=== PATIENT | male | born 1935 | race African-American/Black ===

== ENCOUNTER 2016-05-21 14:12 | Inpatient (IN) | payer MEDICARE, MEDICAID ==
[~2016-05-21] VITALS: Ht 175.3 cm; Wt 96.0 kg
[~2016-05-21 14:12] MED LIST: AMLO10TA2 PO; DORZ2SOL EACH EYE; FINA5TAB2 PO; GLIP10TA6 PO; LOSA50TA PO; METF500T PO; POTA1TAB4 PO; SIMV40TA PO
[2016-05-21 14:14] VITALS: BP 220/105; PULSE 70; RESP 20; TEMP 97.9; O2SAT 94
--- NOTE | 2016-05-21 16:36 | PD ---
HPI Chief Complaint: Respiratory Distress Time Seen by Provider: 16:30 Travel History International Travel<30 days: No Contact w/Intl Traveler<30days: No Traveled to known affect area: No History of Present Illness HPI Patient is an 80-year-old male presenting to emergency for evaluation of chest tightness and epigastric burning. Patient states he also feels short of breath. Patient symptoms started yesterday. He denies any nausea, vomiting, headache, fever, swelling. He reports compliance with his medications. Patient 's past medical history includes hypertension, diabetes, CHF, chronic kidney disease, GERD, hyperlipidemia, bowel obstruction. PFSH Past Medical History Cancer: No High Cholesterol: Yes Congestive Heart Failure: Yes Coronary Artery Disease: Yes Diabetes: Yes GERD: Yes Glaucoma: No Genitourinary: Yes (PROSTATE SURG) Hepatitis: No Hiatal Hernia: No Hypertension: Yes Immune Disorder: No Medical other: Yes (chronic kidney disease) Musculoskeletal: No Neurologic: Yes Psychiatric: No Reproductive: No Respiratory: No Migraines: Yes Renal Failure: Yes Thyroid Disease: No Past Surgical History Abdominal Surgery: Yes (LAP PERLA) Cardiac Surgery: No Ear Surgery: No Endocrine Surgery: No Eye Surgery: No Genitourinary Surgery: Yes (PROSTATE SURGERY ) Gynecologic Surgery: Yes Oral Surgery: Yes (TONSILLECTOMY, ADNOIDECTOMY) Pacemaker: No Thoracic Surgery: No Other Surgery: Yes ("SOME BOWEL SURG") Social History Alcohol Use: No Tobacco Use: No Substance Use: No Allergies-Medications (Allergen,Severity, Reaction): Coded Allergies: No Known Allergies (Verified , 05/21/16) Reported Meds & Prescriptions Reported Meds & Active Scripts Active Finasteride 5 Mg Tab 5 Mg PO DAILY Do not crush. Reported Dorzolamide Opth Drops (Dorzolamide HCl) 2% Soln 1 Drop EACH EYE BID Amlodipine (Amlodipine Besylate) 10 Mg Tab 10 Mg PO DAILY Metformin (Metformin HCl) 500 Mg Tab 500 Mg PO DAILY With a meal Simvastatin 40 Mg Tab 40 Mg PO HS K-Tab (Potassium Chloride) 20 Meq Tab 20 Meq PO DAILY Losartan (Losartan Potassium) 50 Mg Tab 100 Mg PO DAILY Glipizide 10 Mg Tab 10 Mg PO DAILY Take 30 minutes before a meal Review of Systems Except as stated in HPI: all other systems reviewed are Neg Cardiovascular: Positive: Chest Pain or Discomfort Respiratory: Positive: Shortness of Breath Gastrointestinal: Positive: Abdominal Pain (epigastric) Genitourinary: No: Dysuria Musculoskeletal: No: Myalgias Neurologic: No: Weakness, Dizziness, Syncope, Change in Mentation Physical Exam Narrative GENERAL: Well-developed, well-nourished, alert gentleman. Resting comfortably in no acute distress. SKIN: Warm and dry. HEAD: Atraumatic. Normocephalic. EYES: Pupils equal and round. No scleral icterus. No injection or drainage. ENT: No nasal bleeding or discharge. Mucous membranes pink and moist. NECK: Trachea midline. No JVD. CARDIOVASCULAR: Regular rate and rhythm. No murmur appreciated. RESPIRATORY: No accessory muscle use. Clear to auscultation. Breath sounds equal bilaterally. GASTROINTESTINAL: Abdomen soft, non-tender, nondistended. Hepatic and splenic margins not palpable. MUSCULOSKELETAL: No obvious deformities. No clubbing. No cyanosis. No edema. NEUROLOGICAL: Awake and alert. No obvious cranial nerve deficits. Motor grossly within normal limits. Normal speech. PSYCHIATRIC: Appropriate mood and affect; insight and judgment normal. Data Data Last Documented VS Vital Signs Date Time Temp Pulse Resp B/P Pulse Ox O2 Delivery O2 Flow Rate FiO2 05/21/16 14:14 97.9 70 20 220/105 94 Room Air Orders Complete Blood Count With Diff (05/21/16 16:20) Comprehensive Metabolic Panel (05/21/16 16:20) B-Type Natriuretic Peptide (05/21/16 16:20) Act Partial Throm Time (Ptt) (05/21/16 16:20) Prothrombin Time / Inr (Pt) (05/21/16 16:20) Magnesium (Mg) (05/21/16 16:20) Ckmb (Isoenzyme) Profile (05/21/16 16:20) Troponin I (05/21/16 16:20) Electrocardiogram (05/21/16 16:20) Chest, Pa & Lat (05/21/16 16:20) Labs Laboratory Tests Test 05/21/16 17:40 White Blood Count 7.2 TH/MM3 Red Blood Count 4.36 MIL/MM3 Hemoglobin 13.2 GM/DL Hematocrit 39.6 % Mean Corpuscular Volume 90.9 FL Mean Corpuscular Hemoglobin 30.4 PG Mean Corpuscular Hemoglobin 33.4 % Concent Red Cell Distribution Width 12.8 % Platelet Count 168 TH/MM3 Mean Platelet Volume 9.5 FL Neutrophils (%) (Auto) 69.7 % Lymphocytes (%) (Auto) 21.0 % Monocytes (%) (Auto) 6.1 % Eosinophils (%) (Auto) 2.7 % Basophils (%) (Auto) 0.5 % Neutrophils # (Auto) 5.0 TH/MM3 Lymphocytes # (Auto) 1.5 TH/MM3 Monocytes # (Auto) 0.4 TH/MM3 Eosinophils # (Auto) 0.2 TH/MM3 Basophils # (Auto) 0.0 TH/MM3 CBC Comment DIFF FINAL Differential Comment MDM Medical Decision Making Medical Screen Exam Complete: Yes Emergency Medical Condition: Yes Interpretation(s) Vital Signs Date Time Temp Pulse Resp B/P Pulse Ox O2 Delivery O2 Flow Rate FiO2 05/21/16 14:14 97.9 70 20 220/105 94 Room Air Differential Diagnosis Hypertensive urgency versus unstable angina versus congestive heart failure versus electrolyte abnormality versus pneumonia versus bronchitis versus other Narrative Course Patient is an 80-year-old male presenting to emergency for evaluation of shortness of breath and epigastric abdominal pain that started yesterday. Patient had no nausea, vomiting, diarrhea. Patient does have a history of congestive heart failure. Labs and imaging ordered and pending. Patient's vital signs reveal an elevated BP of 220/105. Patient does report compliance with his medications. Care patient to be transferred to provider in medical pod when bed available. Namrata Guerrero May 21, 2016 16:36
--- NOTE | 2016-05-21 16:44 | RADRPT ---
EXAM DATE/TIME: 05/21/2016 16:43 [facility] COMPARISON: CHEST PA & LAT, March 30, 2012, 13:27. INDICATIONS : Short of breath MEDICAL HISTORY : Hypertension. Diabetes mellitus type II. SURGICAL HISTORY : None. ENCOUNTER: Initial ACUITY: 3 days PAIN SCORE: 0/10 LOCATION: Bilateral chest FINDINGS: PA and lateral views of the chest demonstrate the lungs to be symmetrically aerated without evidence of mass, infiltrate or effusion. The cardiomediastinal contours reveal atherosclerotic changes of ao rta with compensated cardiomegaly. Mild persistent coursing the left basilar bronchovascular markings .. Osseous structures are intact. CONCLUSION: No acute disease. No significant change has occurred. Graham Gonzalez MD on May 21, 2016 at 16:42 Board Certified Radiologist. This report was verified electronically.
[2016-05-21 18:12] LABS: BASOPHIL % 0.5 % (0.0-2.0); EOSINOPHIL # 0.2 TH/MM3 (0-0.4); EOSINOPHIL % 2.7 % (0.0-4.0); HEMATOCRIT 39.6 % (39.0-51.0); HEMO FLAGS DIFF FINAL; LYMPHOCYTE # 1.5 TH/MM3 (1.0-4.8); MEAN CELL VOLUME 90.9 FL (80.0-100.0); MEAN CORPUSCULAR HEMOGLOBIN 30.4 PG (27.0-34.0); MEAN CORPUSCULAR HGB CONC 33.4 % (32.0-36.0); MONO % 6.1 % (0.0-8.0); NEUT % 69.7 % (16.0-70.0); PLATELET COUNT 168 TH/MM3 (150-450); RED BLOOD COUNT 4.36 MIL/MM3 (4.50-5.90); RED CELL DISTRIBUTION WIDTH 12.8 % (11.6-17.2); WHITE BLOOD COUNT 7.2 TH/MM3 (4.0-11.0)
[2016-05-21 18:28] LABS: ANION GAP 7 MEQ/L (5-15); AST (GOT) 32 U/L (15-37); BICARBONATE 26.1 MEQ/L (21.0-32.0); BLOOD UREA NITROGEN 10 MG/DL (7-18); CHLORIDE 107 MEQ/L (98-107); GLOMERULAR FILTRATION RATE 55 ML/MIN (>89); MAGNESIUM 1.8 MG/DL (1.5-2.5); POTASSIUM 4.3 MEQ/L (3.5-5.1); SODIUM (NA) 140 MEQ/L (136-145)
[2016-05-21 18:29] LABS: APTT (PATIENT) 27.1 SEC (24.3-30.1); PROTHROMBIN TIME - PATIENT 10.7 SEC (9.8-11.6)
[2016-05-21] MEDS ORDERED: cloNIDine HCL 0.1 MG TAB PO ONE (18:30)
[2016-05-21 18:33] LABS: ALKALINE PHOSPHATASE 83 U/L (45-117); ALT (GPT) 26 U/L (12-78); CREATINE KINASE 118 U/L (39-308); TOTAL BILIRUBIN ADULT 0.7 MG/DL (0.2-1.0)
[2016-05-21 18:37] VITALS: BP 225/98; PULSE 54; RESP 20; TEMP 98.6; O2SAT 94
[2016-05-21 18:46] LABS: CKMB 2.5 NG/ML (0.5-3.6)
[2016-05-21] MEDS ORDERED: ASPI325T PO (18:52)
[2016-05-21 19:00] VITALS: BP 185/86; PULSE 55; RESP 22; O2SAT 95
[2016-05-21] MEDS ORDERED: ASPIRIN 325 MG TAB PO ONE (19:15)
--- NOTE | 2016-05-21 19:55 | PD ---
Physical Exam Date Seen by Provider: May 21, 2016 Time Seen by Provider: 19:51 Narrative 80-year-old male that presents to the ED for evaluation of chest pain and shortness of breath. Please refer to Namrata Nelson's note who evaluated the patient before I did. Patient was signed out to me pending lab report and imaging results and disposition. Data Data Last Documented VS Vital Signs Date Time Temp Pulse Resp B/P Pulse Ox O2 Delivery O2 Flow Rate FiO2 05/21/16 18:37 98.6 54 20 225/98 94 Room Air Orders Complete Blood Count With Diff (05/21/16 16:20) Comprehensive Metabolic Panel (05/21/16 16:20) B-Type Natriuretic Peptide (05/21/16 16:20) Act Partial Throm Time (Ptt) (05/21/16 16:20) Prothrombin Time / Inr (Pt) (05/21/16 16:20) Magnesium (Mg) (05/21/16 16:20) Ckmb (Isoenzyme) Profile (05/21/16 16:20) Troponin I (05/21/16 16:20) Electrocardiogram (05/21/16 16:20) Chest, Pa & Lat (05/21/16 16:20) Lipase (05/21/16 18:15) Clonidine (Catapres) (05/21/16 18:30) CKMB (05/21/16 17:40) CKMB% (05/21/16 17:40) Aspirin (Aspirin) (05/21/16 19:15) Admit Order (Ed Use Only) (05/21/16 19:33) Consult Cardiology (05/21/16 ) Labs Laboratory Tests Test 05/21/16 17:40 White Blood Count 7.2 TH/MM3 Red Blood Count 4.36 MIL/MM3 Hemoglobin 13.2 GM/DL Hematocrit 39.6 % Mean Corpuscular Volume 90.9 FL Mean Corpuscular Hemoglobin 30.4 PG Mean Corpuscular Hemoglobin 33.4 % Concent Red Cell Distribution Width 12.8 % Platelet Count 168 TH/MM3 Mean Platelet Volume 9.5 FL Neutrophils (%) (Auto) 69.7 % Lymphocytes (%) (Auto) 21.0 % Monocytes (%) (Auto) 6.1 % Eosinophils (%) (Auto) 2.7 % Basophils (%) (Auto) 0.5 % Neutrophils # (Auto) 5.0 TH/MM3 Lymphocytes # (Auto) 1.5 TH/MM3 Monocytes # (Auto) 0.4 TH/MM3 Eosinophils # (Auto) 0.2 TH/MM3 Basophils # (Auto) 0.0 TH/MM3 CBC Comment DIFF FINAL Differential Comment Prothrombin Time 10.7 SEC Prothromb Time International 1.0 RATIO Ratio Activated Partial 27.1 SEC Thromboplast Time Sodium Level 140 MEQ/L Potassium Level 4.3 MEQ/L Chloride Level 107 MEQ/L Carbon Dioxide Level 26.1 MEQ/L Anion Gap 7 MEQ/L Blood Urea Nitrogen 10 MG/DL Creatinine 1.48 MG/DL Estimat Glomerular Filtration 55 ML/MIN Rate Random Glucose 111 MG/DL Calcium Level 8.9 MG/DL Magnesium Level 1.8 MG/DL Total Bilirubin 0.7 MG/DL Aspartate Amino Transf 32 U/L (AST/SGOT) Alanine Aminotransferase 26 U/L (ALT/SGPT) Alkaline Phosphatase 83 U/L Total Creatine Kinase 118 U/L Creatine Kinase MB 2.5 NG/ML Troponin I 0.09 NG/ML B-Type Natriuretic Peptide 387 PG/ML Total Protein 8.1 GM/DL Albumin 3.9 GM/DL [facility] Medical Record Reviewed: Yes Supervised Visit with TESSY: No Interpretation(s) EKG shows sinus rhythm with no sign of acute ischemia read by me and attending. CBC & BMP Diagram 05/21/16 17:40 Last Impressions Chest X-Ray 05/21/16 1620 Signed Impressions: Service Date/Time: Saturday, May 21, 2016 16:43 - CONCLUSION: No acute disease. No significant change has occurred. Graham Gonzalez MD Troponin and CK-MB negative. Differential Diagnosis Coronary disease versus ACS versus an STEMI versus CHF versus gastritis Narrative Course 80-year-old male that presents to the ED for evaluation of chest discomfort. Patient was properly examined and was found to have signs and symptoms consistent with appears to be chest pain possible cardiac. Patient does have risk factors including hypertension, high cholesterol, diabetes and CHF. Labs and imaging were ordered before by Namrata Nelson. Please refer to her note. Basically labs and imaging chem positive for positive troponin and elevated BNP. Otherwise unremarkable. No sign of new EKG changes. Case was discussed in my attending Dr. Giron who was made aware of all findings and recommends admission to medical team. Patient has no human resources professional. I spoke with Dr. Mcdaniel who agrees to admission. Diagnosis Primary Impression: Chest pain in adult Additional Impressions: CHF (congestive heart failure) Qualified Code: I50.33 - Acute on chronic diastolic congestive heart failure Elevated troponin Admitting Information Admitting Physician Requests: Observation Oli Tiwari May 21, 2016 19:55
[2016-05-21] MEDS ORDERED: ONDANSETRON HCL 4 MG/2 ML VIAL IVP PRN (22:00)
[2016-05-21] MEDS ORDERED: ACETAMINOPHEN 325 MG TAB PO PRN (22:00)
[2016-05-21] MEDS ORDERED: NALOXONE HCL 0.4 MG/ML AMP IV PRN (22:00)
[2016-05-21] MEDS ORDERED: NITROGLYCERIN 0.4 MG SL 25 TABS/BTL SL PRN (22:00)
[2016-05-21] MEDS ORDERED: NITROGLYCERIN 2% OINT 1 GM PACKET TOP SCH (22:00)
[2016-05-21] MEDS ORDERED: SODIUM CHLORIDE 0.9% FLUSH 5 ML FLUSH FLUSH PRN (22:00)
[2016-05-21] MEDS: HEPARIN SODIUM - SQ 10,000 UNITS/ML VIAL SQ SCH (22:28)
[2016-05-21] MEDS ORDERED: DEXTROSE 50% IN WATER 50 ML VIAL(D50) IV PUSH PRN (22:45)
[2016-05-21] MEDS ORDERED: GLUCAGON 1 MG/ML VIAL OTHER PRN (22:45)
[2016-05-21 23:00] VITALS: BP 159/84; PULSE 58; RESP 18; O2SAT 97
[2016-05-21] MEDS: DEXT 5%-NACL 0.45% 1000 ML INJ 1,000 ML IV SCH (23:11)
[2016-05-22] VITALS (11 sets, daily range): BP systolic 142–185; BP diastolic 64–89; PULSE 46–84; RESP 16–21; TEMP 97.6–98.4; O2SAT 91–100
[2016-05-22 05:08] LABS: HEMATOCRIT 32.2 % (39.0-51.0); MEAN CELL VOLUME 89.9 FL (80.0-100.0); MEAN CORPUSCULAR HEMOGLOBIN 30.6 PG (27.0-34.0); MEAN CORPUSCULAR HGB CONC 34.1 % (32.0-36.0); PLATELET COUNT 140 TH/MM3 (150-450); RED BLOOD COUNT 3.58 MIL/MM3 (4.50-5.90); RED CELL DISTRIBUTION WIDTH 12.6 % (11.6-17.2); REVIEW FLAG FINAL; WHITE BLOOD COUNT 6.2 TH/MM3 (4.0-11.0)
[2016-05-22 05:43] LABS: BICARBONATE 25.2 MEQ/L (21.0-32.0); HDL CHOLESTEROL 55.2 MG/DL (40.0-60.0); POTASSIUM 3.6 MEQ/L (3.5-5.1)
[2016-05-22] MEDS: INSULIN ASPART SUPPLEMENTAL SCALE SQ SCH ×4 (06:22→20:26)
[2016-05-22] MEDS: LOSARTAN 50 MG TAB PO SCH (08:31)
[2016-05-22] MEDS: FINASTERIDE 5 MG TAB PO SCH (08:31)
[2016-05-22] MEDS: glipiZIDE 10 MG TAB PO SCH (08:32)
[2016-05-22] MEDS ORDERED: ASPIRIN 325 MG TAB PO SCH ×2 (09:00)
[2016-05-22] MEDS: SODIUM CHLORIDE 0.9% FLUSH 5 ML FLUSH FLUSH SCH ×2 (09:00→20:25)
[2016-05-22] MEDS: DORZOLAMIDE 2% OPTH SOLN 200 DROP/10 ML BTLO EACH EYE SCH ×2 (09:00→20:25)
[2016-05-22] MEDS ORDERED: hydrALAZINE HCL 25 MG TAB PO SCH (09:00)
[2016-05-22] MEDS ORDERED: hydrALAZINE HCL 20 MG/ML VIAL IV PUSH PRN (09:15)
--- NOTE | 2016-05-22 10:30 | RADRPT ---
EXAM DATE/TIME: 05/22/2016 09:58 [facility] COMPARISON: No previous studies available for comparison. INDICATIONS : Increased amylase and lipase. MEDICAL HISTORY : Hypertension. Gastroesophageal reflux disease. Congestive heart failure. Diabetic. CAD. SURGICAL HISTORY : Cholecystectomy. Tonsillectomy. Prostate. ENCOUNTER: Initial ACUITY: 1 day PAIN SCORE: 0/10 LOCATION: Right upper quadrant MEASUREMENTS: LIVER: 17.1 cm length COMMON DUCT: 7 mm RIGHT KIDNEY: 8.5 x 5.1 x 4.5 cm FINDINGS: LIVER: Normal echotexture without focal lesion or ductal dilatation. COMMON DUCT: No intraluminal mass or stone visualized. GALLBLADDER: Contains no stones, demonstrates no wall thickening or pericholecystic fluid. PANCREAS: The visualized portions are within normal limits. Right kidney is small and echogenic measuring 8.5 cm. CONCLUSION: 1. Pancreas appears unremarkable sonographically. 2. Echogenic kidney consistent with medical renal disease. Brent Drake MD on May 22, 2016 at 10:25 Board Certified Radiologist. This report was verified electronically.
[2016-05-22] MEDS: DEXT 5%-NACL 0.45% 1000 ML INJ 1,000 ML IV SCH ×3 (10:40→14:10)
[2016-05-22] MEDS: HEPARIN SODIUM - SQ 10,000 UNITS/ML VIAL SQ SCH ×2 (11:43→20:30)
--- NOTE | 2016-05-22 11:50 | MH ---
cc: BASIA MARTEL DATE OF ADMISSION: 05/21/2016 DATE OF 1935 CHIEF COMPLAINT chest pain HISTORY OF PRESENT ILLNESS This is a pleasant 80-year-old black male who has been in his usual state of health up until yesterday morning the patient was working out in his yard and noted some midsternal chest pain he describes the pain is a pressure sensation, non radiating. He does note some shortness of breath at the time that the pressure was there, the pain did wax and wane through the a.m. and he decided to come to the emergency room for evaluation. The patient denies any nausea, vomiting, headache, fever. He is fairly active, lives alone and is able to work in his yard. He denies any previous heart attacks, but he does have a history of congestive heart failure. The patient does note a mild cough which seems to be more seasonal he states, but currently is having no shortness of breath and no further symptoms of chest pain after being treated in the emergency room. PAST MEDICAL HISTORY: 1. Diabetes with oral hypoglycemics 2. Hyperlipidemia 3. Gastroesophageal reflux disease 4. Hypertension 5. Chronic kidney disease. PAST SURGICAL HISTORY: 1. Prostate surgery. 2. Laparoscopic cholecystectomy 3. Tonsillectomy. 4. Adenoidectomy 5. Bowel surgery. ALLERGIES NONE KNOWN. MEDICATIONS: 1. Dorzolamide ophthalmic drops 2. Amlodipine 3. Metformin 4. Simvastatin 5. K-tab 6. Losartan 7. Glipizide. SOCIAL HISTORY The patient denies any alcohol use. No illicit drugs. He has previous tobacco use when he was a young male, but has not smoked a long time. The patient is lives alone in his own home. He does have family support outside of the home. FAMILY HISTORY Hypertension. REVIEW OF SYSTEMS A 12-point review was done positives noted with chest pain, mild cough as a day and mild shortness of breath, other systems negative. PHYSICAL EXAMINATION VITAL SIGNS: Temperature is 90, 890 pulse and between 47, 58, respiratory rate 16, blood pressure was 59/84 and 185/89. O2 sat 92. Currently on room air and or O2 at 2 liters p.r.n. IN GENERAL: Tall, well-nourished, well-developed black male looks to be his stated age resting in the bed in no acute distress. SKIN: The skin is pink is pink mucous membranes warm and dry. HEAD, EYES, EARS, NOSE, AND THROAT: Atraumatic, normocephalic. Pupils equal, round, reactive to light and accommodation. Tongue is dry, no extudate. NECK: Neck is supple. CARDIOVASCULAR SYSTEM: Slow rate and rhythm. Soft systolic murmur grade 2/6 at left sternal border. No rubs or gallops. No pedal edema, his pulses are intact. RESPIRATORY: Lungs are essentially clear anteriorly and posteriorly with no wheezes, rales or rhonchi. ABDOMEN: The abdomen is round, soft, nontender, nondistended. Active bowel sounds in all four quads. MUSCULOSKELETAL: He moves his extremities with purpose as stated no edema. He has equal hand cross enterprise integrator and overcome resistance. NEUROLOGICALLY: He is awake and alert, a fair to good historian. Speech is normal. PSYCHIATRIC: Appropriate mood and affect. Insight and judgment is normal. GENITOURINARY: Observable orange, clear urine. DIAGNOSTIC DATA: White blood count 6.2, RBC 3.58, hemoglobin 11, initially 13.2 on admission, 132.2, platelet count 140, initially 168 on admission sodium 140, potassium 3.6, chloride 107 carbon dioxide 25.2, amnion gap 8, BUN 114, creatinine 1.53, random glucose 149, calcium 8.4, troponin low positive at 0.09 and 0.12 and 0.10, lipase 404. PT/INR 1. IMAGING STUDIES Chest x-ray is no acute disease and no acute change. ASSESSMENT 1. Chest pain, rule out myocardial infarction. 2. Rule out, coronary artery disease. 3. Chronic kidney disease. 4. Diabetes type 2, non-insulin dependent. 5. Gastroesophageal reflux disease. 6. Hypertension. 7. Cough, mild. PLAN: Plan is to admit for observation. The patient will have vital signs q. Four, and or as warranted, we will reconcile his medications. Consult cardiology for expert opinion, currently the patient has a heart healthy diet, but we will keep him n.p.o. this morning pending a possible stress test. The patient has deep venous thrombosis prophylaxis with aspirin and heparin. I appreciate cardiology input and we will follow this patient. Dictated by JUANCARLOS Ferris MD Yessy Burger /8:23 AM /3:31 PM
--- NOTE | 2016-05-22 12:16 | MB ---
cc: FARSHAD JEFFREY MD DATE OF CONSULTATION: 05/22/2016 REASON FOR CONSULTATION: Chest pain elevated troponins. HISTORY OF PRESENT ILLNESS Mr. Castillo is a 80-year-old man who does have a history of hypertension and hyperlipidemia. He denies any other cardiac problems and specifically denies any prior coronary artery disease or atrial fibrillation. He reports that he had several hours of chest discomfort yesterday. He denies any precipitating or relieving factors. He reports that he has pain free currently. The patient notes that he has been compliant with his medications and he believes his systolic pressure at home is in the 130's. OUTPATIENT MEDICATIONS Include 1. Finasteride 5 mg a day 2. Losartan 50 mg a day. 3. Metformin 500 mg a day 4. Dorzolamide 5. Amlodipine 10 mg a day. 6. Simvastatin 40 mg a day. 7. Aspirin 325 mg a day. 8. Potassium 3 mEq a day. ALLERGIES NO KNOWN DRUG ALLERGIES. PAST MEDICAL HISTORY: 1. Significant for hypertension 2. Diabetes. 3. He has also noted to have a history of elevated troponin which does appear to be chronic. 4. Renal insufficiency. REVIEW OF SYSTEMS Except as mentioned in the HPI all 12 systems are negative. PHYSICAL EXAMINATION VITAL SIGNS: Blood pressure on arrival was 220/105. Currently it is 185/89 with a heart rate of 49. The respiratory rate of 15. IN GENERAL: He is a well appearing man who is in no apparent distress. NECK: His neck is free from jugular venous distention. LUNGS: The lungs are bilaterally clear to auscultation. CARDIOVASCULAR SYSTEM: Cardiovascular examination he has a normal S1 and S2, I did not appreciate any murmurs, rubs or gallops. ABDOMEN: The abdomen is soft. EXTREMITIES: The extremities are free from edema. LABORATORY VALVES: Significant for hemoglobin of 11, creatinine of 1.53 and serial troponins 0.09/0.1/0.1 and a B-type natriuretic peptide of 387. His lipase is also elevated at 404. EKG shows normal sinus rhythm with nonspecific ST-T wave changes. IMPRESSION 1. Atypical chest pain. The patient certainty has multiple cardiovascular risk factors. He presented with the very high blood pressure and despite taking his outpatient medications. He has not had a nuclear stress test in many years. At this point I would like to pursue further evaluation with nuclear stress testing. His blood pressure will have to be controlled, prior. Additionally, the patient has had Caffeine and thus at this point would have to wait for Lexiscan. 2. Hypertension - this is currently poorly controlled. I am going to add hydralazine. 3. Renal insufficiency - this does appear chronic. 4. Anemia. Is being managed by the primary team. Farshad Jeffrey M.D. Farrah /8:34 AM /11:48 AM
[2016-05-22] MEDS: hydrALAZINE HCL 25 MG TAB PO SCH ×2 (16:24→20:25)
--- NOTE | 2016-05-22 17:06 | EKG ---
Date Performed: 05/21/2016 Time Performed: 17:21:19 PTAGE: 80 years EKG: SINUS BRADYCARDIA WITH FIRST DEGREE AV BLOCK ST DEVIATION AND MODERATE T-WAVE ABNORMALITY, CONSIDER LATERAL ISCHEMIA Since previous tracing, no significant change noted ABNORMAL ECG PREVIOUS TRACING : 11/21/2012 11.15 DOCTOR: Reese Bush Interpretating Date/Time 05/22/2016 17:04:41
--- NOTE | 2016-05-22 17:06 | EKG ---
Date Performed: 05/21/2016 Time Performed: 22:34:12 PTAGE: 80 years EKG: SINUS BRADYCARDIA WITH FIRST DEGREE AV BLOCK LEFT VENTRICULAR HYPERTROPHY AND ST-T CHANGE S dain previous tracing, no significant change noted ABNORMAL ECG PREVIOUS TRACING : 05/21/2016 17.21 DOCTOR: Reese Bush Interpretating Date/Time 05/22/2016 17:04:58
[2016-05-22] MEDS: PRAVASTATIN SOD 80 MG TAB PO SCH (20:25)
[2016-05-23] VITALS (11 sets, daily range): BP systolic 133–186; BP diastolic 63–81; PULSE 57–89; RESP 18–20; TEMP 98.1–98.8; O2SAT 95–98
[2016-05-23] MEDS: hydrALAZINE HCL 25 MG TAB PO SCH ×4 (02:28→20:41)
[2016-05-23 05:26] LABS: AUTOMATED NEUTROPHIL # 5.2 TH/MM3 (1.8-7.7); BASOPHIL % 0.5 % (0.0-2.0); EOSINOPHIL # 0.1 TH/MM3 (0-0.4); EOSINOPHIL % 1.7 % (0.0-4.0); HEMATOCRIT 35.1 % (39.0-51.0); HEMO FLAGS DIFF FINAL; LYMPH % 18.8 % (9.0-44.0); LYMPHOCYTE # 1.4 TH/MM3 (1.0-4.8); MEAN CELL VOLUME 90.5 FL (80.0-100.0); MEAN CORPUSCULAR HEMOGLOBIN 30.7 PG (27.0-34.0); MEAN CORPUSCULAR HGB CONC 33.9 % (32.0-36.0); PLATELET COUNT 153 TH/MM3 (150-450); RED BLOOD COUNT 3.88 MIL/MM3 (4.50-5.90); RED CELL DISTRIBUTION WIDTH 12.8 % (11.6-17.2); WHITE BLOOD COUNT 7.3 TH/MM3 (4.0-11.0)
[2016-05-23 05:57] LABS: BICARBONATE 25.4 MEQ/L (21.0-32.0); POTASSIUM 3.5 MEQ/L (3.5-5.1)
[2016-05-23] MEDS: INSULIN ASPART SUPPLEMENTAL SCALE SQ SCH ×4 (06:00→20:50)
--- NOTE | 2016-05-23 07:29 | PD.CARD.PN ---
Subjective Subjective Remarks pt reports dizzy spell Objective Medications Current Medications Medications (Trade) Dose Ordered Sig/Regina Route Start Time Stop Time Status Last Admin (Aspirin) 325 mg DAILY PO 05/23/16 09:00 (Nitrostat Sl) 0.4 mg Q5M PRN SL 05/21/16 22:00 (NS Flush) 2 ml UNSCH PRN FLUSH 05/21/16 22:00 (NS Flush) 2 ml BID FLUSH 05/22/16 09:00 05/22/16 20:25 (Tylenol) 650 mg Q4H PRN PO 05/21/16 22:00 (Zofran Inj) 4 mg Q6H PRN IVP 05/21/16 22:00 (Heparin Inj) 5,000 units Q12H SQ 05/21/16 22:00 05/22/16 20:30 (Narcan Inj) 0.4 mg UNSCH PRN IV 05/21/16 22:00 (Norvasc) 10 mg DAILY PO 05/22/16 09:00 05/22/16 08:31 (Trusopt 2% Opth Soln) 1 drop BID EACH EYE 05/22/16 09:00 05/22/16 20:25 (Proscar) 5 mg DAILY PO 05/22/16 09:00 05/22/16 08:31 (Glucotrol) 10 mg DAILY PO 05/22/16 09:00 05/22/16 08:32 (Cozaar) 100 mg DAILY PO 05/22/16 09:00 05/22/16 08:31 Pravastatin Sodium 80 mg 80 mg HS PO 05/22/16 21:00 05/22/16 20:25 (D5W-1/2 NS 1000 ml Inj) 1,000 ml @ 84 mls/hr [id number] IV 05/21/16 22:45 05/22/16 14:10 (D50w (Vial) Inj) 25 ml UNSCH PRN IV PUSH 05/21/16 22:45 (Glucagon Inj) 1 mg UNSCH PRN OTHER 05/21/16 22:45 (Apresoline) 25 mg Q6H PO 05/22/16 15:00 05/23/16 02:28 (Apresoline Inj) 10 mg Q6H PRN IV PUSH 05/22/16 09:15 Vital Signs / I&O Vital Signs Date Time Temp Pulse Resp B/P Pulse Ox O2 Delivery O2 Flow Rate FiO2 05/23/16 05:36 95 05/23/16 04:33 98.8 67 20 185/72 95 05/23/16 00:00 98.4 89 18 186/81 98 05/22/16 23:00 59 05/22/16 20:22 98.0 84 18 142/64 99 05/22/16 20:00 62 05/22/16 16:00 97.6 60 18 182/84 95 05/22/16 12:52 46 05/22/16 11:15 97.7 47 18 154/73 92 05/22/16 08:44 46 157/73 92 05/22/16 07:59 92 21 05/22/16 07:48 98.0 49 16 185/89 91 I/O 05/22/16 05/22/16 05/22/16 05/23/16 05/23/16 05/23/16 07:00 15:00 23:00 07:00 15:00 23:00 Intake Total 360 ml Balance 360 ml Intake Oral 360 ml # Voids 1 Physical Exam GENERAL: Well developed, well nourished. No acute distress. HEENT: Jugular venous pressure is normal. CHEST: Lungs clear to auscultation bilaterally. Unlabored respiratory effort. CARDIAC: Regular rate and rhythm without S3, S4, or murmur. ABDOMEN: Soft, nontender, no hepatosplenomegaly. Bowel sounds present. EXTREMITIES: No clubbing, cyanosis, or edema. Laboratory Laboratory Tests Test 05/23/16 05:00 White Blood Count 7.3 TH/MM3 Red Blood Count 3.88 MIL/MM3 Hemoglobin 11.9 GM/DL Hematocrit 35.1 % Mean Corpuscular Volume 90.5 FL Mean Corpuscular Hemoglobin 30.7 PG Mean Corpuscular Hemoglobin 33.9 % Concent Red Cell Distribution Width 12.8 % Platelet Count 153 TH/MM3 Mean Platelet Volume 9.2 FL Neutrophils (%) (Auto) 71.0 % Lymphocytes (%) (Auto) 18.8 % Monocytes (%) (Auto) 8.0 % Eosinophils (%) (Auto) 1.7 % Basophils (%) (Auto) 0.5 % Neutrophils # (Auto) 5.2 TH/MM3 Lymphocytes # (Auto) 1.4 TH/MM3 Monocytes # (Auto) 0.6 TH/MM3 Eosinophils # (Auto) 0.1 TH/MM3 Basophils # (Auto) 0.0 TH/MM3 CBC Comment DIFF FINAL Differential Comment Sodium Level 139 MEQ/L Potassium Level 3.5 MEQ/L Chloride Level 107 MEQ/L Carbon Dioxide Level 25.4 MEQ/L Anion Gap 7 MEQ/L Blood Urea Nitrogen 12 MG/DL Creatinine 1.48 MG/DL Estimat Glomerular Filtration 55 ML/MIN Rate Random Glucose 93 MG/DL Calcium Level 8.5 MG/DL Troponin I 0.07 NG/ML Lipase 479 U/L Assessment and Plan Assessment and Plan 1. Atypical chest pain- no further episodes -wade nuc today -ok for d/c if no ischemia 2. Hypertension - am meds 3. Renal insufficiency - this does appear chronic. 4. Anemia. Is being managed by the primary team. Addendum- nuc stress with anterior ischemia=> risk /bene for cath discussed and he is agreeable despite standard risk and elevated risk from CKD Niki Jesus MD May 23, 2016 07:29
[2016-05-23] MEDS: LOSARTAN 50 MG TAB PO SCH (07:45)
[2016-05-23] MEDS: glipiZIDE 10 MG TAB PO SCH (07:45)
[2016-05-23] MEDS: DORZOLAMIDE 2% OPTH SOLN 200 DROP/10 ML BTLO EACH EYE SCH ×2 (07:46→21:00)
[2016-05-23] MEDS: ASPIRIN 325 MG TAB PO SCH (07:46)
[2016-05-23] MEDS: FINASTERIDE 5 MG TAB PO SCH (07:46)
[2016-05-23] MEDS: SODIUM CHLORIDE 0.9% FLUSH 5 ML FLUSH FLUSH SCH ×2 (07:46→20:41)
--- NOTE | 2016-05-23 08:10 | HHI.PR ---
Subjective Subjective Remarks going for STT today no CP mildly dizzy when he woke up this morning, now resolved no sob tele-SR, no ectopy no acute changes overnight Review of Systems Constitutional Constitutional Remarks 12 point ROS completed, negative except as noted above Vitals/Results Intake & Output 05/22/16 05/22/16 05/23/16 15:00 23:00 07:00 Intake Total 360 ml Balance 360 ml Intake Oral 360 ml # Voids 1 Vital Signs Vital Signs Date Time Temp Pulse Resp B/P Pulse Ox O2 Delivery O2 Flow Rate FiO2 05/23/16 05:36 95 05/23/16 04:33 98.8 67 20 185/72 95 05/23/16 00:00 98.4 89 18 186/81 98 05/22/16 23:00 59 05/22/16 20:22 98.0 84 18 142/64 99 05/22/16 20:00 62 05/22/16 16:00 97.6 60 18 182/84 95 05/22/16 12:52 46 05/22/16 11:15 97.7 47 18 154/73 92 05/22/16 08:44 46 157/73 92 CBC/BMP: 05/23/16 0500 05/23/16 0500 Lab Results Laboratory Tests Test 05/23/16 05:00 White Blood Count 7.3 TH/MM3 Red Blood Count 3.88 MIL/MM3 Hemoglobin 11.9 GM/DL Hematocrit 35.1 % Mean Corpuscular Volume 90.5 FL Mean Corpuscular Hemoglobin 30.7 PG Mean Corpuscular Hemoglobin 33.9 % Concent Red Cell Distribution Width 12.8 % Platelet Count 153 TH/MM3 Mean Platelet Volume 9.2 FL Neutrophils (%) (Auto) 71.0 % Lymphocytes (%) (Auto) 18.8 % Monocytes (%) (Auto) 8.0 % Eosinophils (%) (Auto) 1.7 % Basophils (%) (Auto) 0.5 % Neutrophils # (Auto) 5.2 TH/MM3 Lymphocytes # (Auto) 1.4 TH/MM3 Monocytes # (Auto) 0.6 TH/MM3 Eosinophils # (Auto) 0.1 TH/MM3 Basophils # (Auto) 0.0 TH/MM3 CBC Comment DIFF FINAL Differential Comment Sodium Level 139 MEQ/L Potassium Level 3.5 MEQ/L Chloride Level 107 MEQ/L Carbon Dioxide Level 25.4 MEQ/L Anion Gap 7 MEQ/L Blood Urea Nitrogen 12 MG/DL Creatinine 1.48 MG/DL Estimat Glomerular Filtration 55 ML/MIN Rate Random Glucose 93 MG/DL Calcium Level 8.5 MG/DL Troponin I 0.07 NG/ML Lipase 479 U/L Physical Exam General General Appearance: Well Developed, Well Nourished, No Acute Distress, Comfortable Eyes Eye Exam: Pupils Equal, Pupils Reactive Ears & Nose Ears & Nose Exam: Nasal Mucosa [place] Throat Throat Exam: Oral Mucosa [place] & Moist Neck Neck Exam: Neck Supple, Trachea Midline Pulmonary Resp Exam: Clear Bilaterally, No Distress Cardiology CV Exam: Regular, Good Perfusion Gastrointestinal/Abdomen GI Exam: Soft, Non-Tender, Bowel Sounds Present, Non-Distended Musculoskeletal MS Exam: Joints Intact Integumentary Skin Exam: Warm, Dry Extremeties Extremities Exam: No Edema, Pedal Pulses Palpable Neurologic Neuro Exam: Alert, Awake, Oriented, Speech Clear, Moving All Extremities, No Focal Deficits Psychiatric Psych Exam: Appropriate Responses VTE Prophylaxis VTE Prophylaxis Meds: Heparin Assessment/Plan Assessment/Plan ASSESSMENT 1. Chest pain, rule out myocardial infarction, mildly elevated trop 2. Rule out, coronary artery disease. 3. Chronic kidney disease. 4. Diabetes type 2, non-insulin dependent. 5. Gastroesophageal reflux disease. 6. Hypertension, uncontrolled 7. Cough, mild. 8. Elevated lipase Plan Appreciate card input for STT today, if negative. Poss dc BP remains elevated, continue with scheduled and PRN meds elevated trop ? poss. due to elevated BP continue ASA/statin no BB, HR 50s elevated lipase, asymptomatic pancreas US okay continue IVF Continue accuchecks with AC/HS diabetic diet Renal fx stable continue IVF Heparin for DVT prophylaxis will f/u after STT, poss. dc D/W RN D/W Dr. Sosa D/W pt This patient was seen by myself and Dr. Sosa, this note is written on her behalf. Gaby Knight May 23, 2016 08:09
[2016-05-23] MEDS: HEPARIN SODIUM - SQ 10,000 UNITS/ML VIAL SQ SCH (10:00)
[2016-05-23] MEDS ORDERED: REGADENOSON INJ 0.4 MG/5 ML SYR ONE (10:18)
--- NOTE | 2016-05-23 11:50 | RADRPT ---
EXAM DATE/TIME: 05/23/2016 09:46 [facility] COMPARISON: CHEST PA & LAT, May 21, 2016, 16:43. INDICATIONS : Chest discomfort for 1 day. Bradycardia. Angina. Coronary artery disease. DOSE: 25.9 mCi Tc99m Myoview at stress. 8.5 mCi Tc99m Myoview at rest. 0.4 mg Lexiscan STRESS SYMPTOMS: None. EJECTION FRACTION: 42% MEDICAL HISTORY : Congestive hearrt failure. Hypertension. Hypercholesterolemia. SURGICAL HISTORY : Prostatectomy. Tonsillectomy. ENCOUNTER: Initial ACUITY: 1 day PAIN SCALE: 1/10 LOCATION: Midsternal chest TECHNIQUE: The patient underwent pharmacologic stress with infusion of prescribed dose. Continuous ECG tracing was monitored during stress. Gated SPECT imaging was performed after stress and conventional SPECT i maging was performed at rest. The examination was performed on a SPECT/CT scanner, both attenuation and non-corrected datasets were reviewed. FINDINGS: DISTRIBUTION: The maximum perfused segment at stress is in the septal wall. PERFUSION STUDY: The pattern of perfusion at stress reveals diminished perfusion in the anterior wall with redistribut ion at rest and consistent with ischemia. GATED STUDY: There is intact wall motion and thickening without hypokinetic or dyskinetic segments. CONCLUSION: Anterior wall perfusion defect at stress with redistribution at rest indicating ischemia. Mild left ventricular cardiomegaly with normal m yocardial contraction. Ejection fraction 42% RISK CATEGORY: Intermediate (1-3% Annual Mortality Rate) Graham Gonzalez MD on May 23, 2016 at 11:46 Board Certified Radiologist. This report was verified electronically.
[2016-05-23] MEDS ORDERED: diphenhydrAMINE HCL 50 MG/ML VIAL IV SCH (16:45)
[2016-05-23] MEDS: SODIUM CHLOR 0.9% 1000 ML INJ 1,000 ML IV SCH (16:45)
[2016-05-23] MEDS ORDERED: diphenhydrAMINE HCL 50 MG/ML VIAL ONE (17:10)
[2016-05-23] MEDS ORDERED: HEPARIN-NS/PF INJ 500 ML ONE (17:10)
[2016-05-23] MEDS ORDERED: IOHEXOL 350 MG/ML 50 ML BTL (for Cath Lab) OTHER ONE (17:10)
[2016-05-23] MEDS ORDERED: NITROGLYCERIN 400 MCG/SPRAY 4.9 GM BOTTLE SL ONE (17:24)
[2016-05-23] MEDS ORDERED: SODIUM CHLOR 0.9% 250 ML INJ 250 ML IV PRN (18:15)
[2016-05-23] MEDS ORDERED: SODIUM CHLORIDE 0.9% FLUSH 5 ML FLUSH IVF PRN (18:15)
[2016-05-23] MEDS ORDERED: METOCLOPRAMIDE HCL 10 MG/2 ML VIAL IV PRN (18:15)
[2016-05-23] MEDS ORDERED: ONDANSETRON HCL 4 MG/2 ML VIAL IV PRN (18:15)
[2016-05-23] MEDS ORDERED: MISC INFORMATION XX ONE (18:15)
[2016-05-23] MEDS ORDERED: ATROPINE SULFATE 1 MG/ML VIAL IV PRN (18:15)
[2016-05-23] MEDS ORDERED: SODIUM CHLOR 0.9% 250 ML INJ 250 ML IV ONE (18:30)
[2016-05-23] MEDS: PRAVASTATIN SOD 80 MG TAB PO SCH (20:41)
[2016-05-23] MEDS: SODIUM CHLORIDE 0.9% FLUSH 5 ML FLUSH IVF SCH (20:41)
[2016-05-23] MEDS: DEXT 5%-NACL 0.45% 1000 ML INJ 1,000 ML IV SCH (22:25)
--- NOTE | 2016-05-23 22:36 | MA ---
cc: FARSHAD JEFFREY MD DATE 05/23/2016 INDICATION Abnormal nuclear stress test. PROCEDURE Left heart catheterization, selective coronary angiography. DETAILS OF PROCEDURE The patient gave informed consent. He was prehydrated prior the procedure. He was prepped in usual sterile fashion. A subcutaneous injection of lidocaine was made in the right inguinal area. Access was achieved in the right femoral artery and a 4-Turkish sheath was inserted. A JL-5 and 3DRC were utilized to engage left and right coronary arteries. Angiograms were obtained in multiple views and projections. The patient remained stable throughout. FINDINGS Ventricular pressure was 136/8 mmHg. Aortic pressure 131/61 mmHg. Left ventriculogram was not performed given his renal insufficiency. The EF was 42% by nuclear stress test. CORONARY ANATOMY Left main - this vessel is moderate to heavily calcified in the distal portion with a 50% stenosis. It does give rise to LAD and circumflex. LAD - this vessel has 50-70% ostial stenosis. The vessel is somewhat tortuous in this area. It is followed by a mid 50% lesion. The distal vessel wraps around the apex and is actually quite large and appears to supply a good portion of the inferior wall. The first diagonal is a 1.5 mm vessel and has a 75% stenosis. The second diagonal is 1.5-2.0 mm and has a long proximal 80% stenosis followed by a mid 70% stenosis. Circumflex - this vessel is subtotally occluded in the proximal portion. RCA - this vessel is also subtotally occluded proximally. IMPRESSIONS 1. Mild LV impairment by nuclear stress test. 2. Essentially occluded RCA and circumflex. 3. Moderate to severe disease of the proximal LAD that was significant by nuclear stress test. There is additional severe disease in the first and second diagonal. 4. Cardiothoracic surgery evaluation for coronary artery bypass graft. Farshad Jeffrey M.D. OSIRIS/LA /5:58 PM /10:18 PM
[2016-05-24] VITALS (15 sets, daily range): BP systolic 146–179; BP diastolic 60–88; PULSE 62–83; RESP 18; TEMP 98.1–99.8; O2SAT 94–96
[2016-05-24] MEDS: hydrALAZINE HCL 25 MG TAB PO SCH ×4 (02:01→20:28)
[2016-05-24 04:52] LABS: BICARBONATE 24.4 MEQ/L (21.0-32.0); POTASSIUM 3.4 MEQ/L (3.5-5.1)
[2016-05-24] MEDS: INSULIN ASPART SUPPLEMENTAL SCALE SQ SCH ×4 (06:18→20:28)
--- NOTE | 2016-05-24 07:39 | PD.CARD.PN ---
Subjective Subjective Remarks Pt without complaints Objective Medications Current Medications Medications (Trade) Dose Ordered Sig/Regina Route Start Time Stop Time Status Last Admin (Aspirin) 325 mg DAILY PO 05/23/16 09:00 05/23/16 07:46 (Nitrostat Sl) 0.4 mg Q5M PRN SL 05/21/16 22:00 (Tylenol) 650 mg Q4H PRN PO 05/21/16 22:00 (Zofran Inj) 4 mg Q6H PRN IVP 05/21/16 22:00 (Narcan Inj) 0.4 mg UNSCH PRN IV 05/21/16 22:00 (Norvasc) 10 mg DAILY PO 05/22/16 09:00 05/23/16 07:46 (Trusopt 2% Opth Soln) 1 drop BID EACH EYE 05/22/16 09:00 05/23/16 07:46 (Proscar) 5 mg DAILY PO 05/22/16 09:00 05/23/16 07:46 (Glucotrol) 10 mg DAILY PO 05/22/16 09:00 05/23/16 07:45 (Cozaar) 100 mg DAILY PO 05/22/16 09:00 05/23/16 07:45 Pravastatin Sodium 80 mg 80 mg HS PO 05/22/16 21:00 05/23/16 20:41 (D5W-1 NS 1000 ml Inj) 1,000 ml @ 84 mls/hr [id number] IV 05/21/16 22:45 05/22/16 14:10 (D50w (Vial) Inj) 25 ml UNSCH PRN IV PUSH 05/21/16 22:45 (Glucagon Inj) 1 mg UNSCH PRN OTHER 05/21/16 22:45 Hydralazine HCl 25 mg 25 mg Q6H PO 05/22/16 15:00 05/24/16 02:01 (NS 1000 ml Inj) 1,000 ml @ 30 mls/hr Q24H IV 05/23/16 16:45 05/28/16 16:44 (NS Flush) 2 ml BID IVF 05/23/16 21:00 05/23/16 20:41 (NS Flush) 2 ml UNSCH PRN IVF 05/23/16 18:15 Atropine Sulfate 0.5 mg 0.5 mg UNSCH PRN IV 05/23/16 18:15 (NS 250 ml Inj) 250 ml @ 500 mls/hr ONCE PRN IV 05/23/16 18:15 05/24/16 18:14 (Reglan Inj) 10 mg Q4H PRN IV 05/23/16 18:15 (Zofran Inj) 4 mg Q4H PRN IV 05/23/16 18:15 Vital Signs / I&O Vital Signs Date Time Temp Pulse Resp B/P Pulse Ox O2 Delivery O2 Flow Rate FiO2 05/24/16 04:00 64 05/24/16 04:00 98.3 65 18 146/60 96 05/24/16 03:00 79 05/24/16 02:00 83 05/24/16 01:00 64 05/24/16 00:00 98.1 63 18 178/88 96 05/24/16 00:00 62 05/23/16 23:00 62 05/23/16 22:00 64 05/23/16 21:20 95 21 05/23/16 21:00 69 05/23/16 20:00 98.1 76 18 165/71 96 05/23/16 20:00 80 05/23/16 11:59 98.2 65 20 133/63 95 05/23/16 11:12 58 05/23/16 09:06 57 151/70 I/O 05/23/16 05/23/16 05/23/16 05/24/16 05/24/16 05/24/16 07:00 15:00 23:00 07:00 15:00 23:00 Intake Total 1082 ml Output Total 950 ml Balance 132 ml Intake Oral 660 ml IV Total 422 ml Output Urine Total 950 ml # Voids 1 2 # Bowel Movements 0 Physical Exam GENERAL: Well developed, well nourished. No acute distress. HEENT: Jugular venous pressure is normal. CHEST: Lungs clear to auscultation bilaterally. Unlabored respiratory effort. CARDIAC: Regular rate and rhythm without S3, S4, or murmur. ABDOMEN: Soft, nontender, no hepatosplenomegaly. Bowel sounds present. EXTREMITIES: No clubbing, cyanosis, or edema. Laboratory Laboratory Tests Test 05/24/16 04:13 Sodium Level 142 MEQ/L Potassium Level 3.4 MEQ/L Chloride Level 110 MEQ/L Carbon Dioxide Level 24.4 MEQ/L Anion Gap 8 MEQ/L Blood Urea Nitrogen 14 MG/DL Creatinine 1.54 MG/DL Estimat Glomerular Filtration 53 ML/MIN Rate Random Glucose 149 MG/DL Calcium Level 8.5 MG/DL Imaging Last 72 hours Impressions Myocardial Perfusion Scan Nuc Med 05/23/16 0000 Signed Impressions: Service Date/Time: Monday, May 23, 2016 09:46 - CONCLUSION: Anterior wall perfusion defect at stress with redistribution at rest indicating ischemia. Mild left ventricular cardiomegaly with normal myocardial contraction. Ejection fraction 42%% RISK CATEGORY: Intermediate (1-3%% Annual Mortality Rate) Graham Gonzalez MD Pancreas Ultrasound 05/22/16 0000 Signed Impressions: Service Date/Time: Sunday, May 22, 2016 09:58 - CONCLUSION: 1. Pancreas appears unremarkable sonographically. 2. Echogenic kidney consistent with medical renal disease. Brent Drake MD Chest X-Ray 05/21/16 1620 Signed Impressions: Service Date/Time: Saturday, May 21, 2016 16:43 - CONCLUSION: No acute disease. No significant change has occurred. Graham Gonzalez MD Assessment and Plan Assessment and Plan 1. CAD- multivessel disease, awaiting CV surgery consult evaluation for CABG 2. Hypertension - fair 3. Renal insufficiency - stable 4. Anemia. Is being managed by the primary team. Niki Jesus MD May 24, 2016 07:39
[2016-05-24] MEDS: glipiZIDE 10 MG TAB PO SCH (08:54)
[2016-05-24] MEDS: LOSARTAN 50 MG TAB PO SCH (08:54)
[2016-05-24] MEDS: FINASTERIDE 5 MG TAB PO SCH (08:54)
[2016-05-24] MEDS: ASPIRIN 325 MG TAB PO SCH (08:55)
[2016-05-24] MEDS: DORZOLAMIDE 2% OPTH SOLN 200 DROP/10 ML BTLO EACH EYE SCH ×2 (09:00→20:28)
[2016-05-24] MEDS: SODIUM CHLORIDE 0.9% FLUSH 5 ML FLUSH IVF SCH (09:00)
[2016-05-24] MEDS: DEXT 5%-NACL 0.45% 1000 ML INJ 1,000 ML IV SCH (10:20)
[2016-05-24] MEDS: CARVEDILOL 3.125 MG TAB PO SCH ×2 (10:26→20:28)
--- NOTE | 2016-05-24 10:34 | HHI.PR ---
Subjective Interval History awake alert and oriented laying in bed no chest pain no sob s/p cardiac cath yesterday, after abnormal stress test had breakfast this am BP elevated Vitals/Results Intake & Output 05/23/16 05/23/16 05/24/16 15:00 23:00 07:00 Intake Total 1082 ml Output Total 950 ml Balance 132 ml Intake Oral 660 ml IV Total 422 ml Output Urine Total 950 ml # Voids 1 2 # Bowel Movements 0 Vital Signs Vital Signs Date Time Temp Pulse Resp B/P Pulse Ox O2 Delivery O2 Flow Rate FiO2 05/24/16 07:30 99.8 81 18 172/63 95 05/24/16 04:00 64 05/24/16 04:00 98.3 65 18 146/60 96 05/24/16 03:00 79 05/24/16 02:00 83 05/24/16 01:00 64 05/24/16 00:00 98.1 63 18 178/88 96 05/24/16 00:00 62 05/23/16 23:00 62 05/23/16 22:00 64 05/23/16 21:20 95 21 05/23/16 21:00 69 05/23/16 20:00 98.1 76 18 165/71 96 05/23/16 20:00 80 05/23/16 11:59 98.2 65 20 133/63 95 05/23/16 11:12 58 CBC/BMP: 05/23/16 0500 05/24/16 0413 Lab Results Laboratory Tests Test 05/24/16 04:13 Sodium Level 142 MEQ/L Potassium Level 3.4 MEQ/L Chloride Level 110 MEQ/L Carbon Dioxide Level 24.4 MEQ/L Anion Gap 8 MEQ/L Blood Urea Nitrogen 14 MG/DL Creatinine 1.54 MG/DL Estimat Glomerular Filtration 53 ML/MIN Rate Random Glucose 149 MG/DL Calcium Level 8.5 MG/DL Physical Exam General General Appearance: Well Developed, Well Nourished, No Acute Distress, Comfortable Eyes Eye Exam: Pupils Equal, Pupils Reactive Ears & Nose Ears & Nose Exam: Nasal Mucosa [place] Throat Throat Exam: Oral Mucosa [place] & Moist Neck Neck Exam: Neck Supple, Trachea Midline Pulmonary Resp Exam: Clear Bilaterally, No Distress Cardiology CV Exam: Regular, Good Perfusion Gastrointestinal/Abdomen GI Exam: Soft, Non-Tender, Bowel Sounds Present, Non-Distended Musculoskeletal MS Exam: Joints Intact Integumentary Skin Exam: Warm, Dry Extremeties Extremities Exam: No Edema, Pedal Pulses Palpable Neurologic Neuro Exam: Alert, Awake, Oriented, Speech Clear, Moving All Extremities, No Focal Deficits Psychiatric Psych Exam: Appropriate Responses VTE Prophylaxis VTE Prophylaxis Meds: Heparin Assessment/Plan Assessment/Plan ASSESSMENT 1. Chest pain, rule out myocardial infarction, mildly elevated trop 2. Rule out, coronary artery disease. 3. Chronic kidney disease. 4. Diabetes type 2, non-insulin dependent. 5. Gastroesophageal reflux disease. 6. Hypertension, uncontrolled 7. Cough, mild. 8. Elevated lipase Plan Appreciate card input Abnormal STT s/p cardiac cath with occluded RCA/ circumflex and severe disease in prox LAD CTS consulted for CABG eval BP remains elevated, continue with scheduled and PRN meds low dose BB added heart rate appears stable continue ASA/statin elevated lipase, asymptomatic pancreas US okay continue IVF Continue accuchecks with AC/HS diabetic diet Renal fx stable continue IVF Heparin for DVT prophylaxis D/W pt Faustina Sosa MD May 24, 2016 10:34
[2016-05-24] MEDS ORDERED: METOPROLOL TARTRATE 25 MG TAB PO SCH (10:45)
[2016-05-24] MEDS ORDERED: CHLORHEXIDINE GLUCONATE 4% SOLN 120 ML BTL TOPICAL SCH (10:45)
[2016-05-24] MEDS ORDERED: PAPAVERINE INJ 60 MG, NITROGLYCERIN INJ 100 MCG, DILTIAZEM INJ 100 MG in SODIUM CHLORID... IRRIGATION SCH (10:45)
[2016-05-24] MEDS ORDERED: SODIUM CHLORIDE 0.9% FLUSH 5 ML FLUSH IV FLUSH PRN (10:45)
[2016-05-24] MEDS ORDERED: ceFAZolin 2 GM PREMIX 50 ML IV SCH (10:45)
[2016-05-24] MEDS ORDERED: CEFAZOLIN INJ 500 MG in SODIUM CHLORIDE 0.9% IRR BTL 500 ML IRRIGATION SCH (10:45)
[2016-05-24] MEDS ORDERED: INSULIN REGULAR (IV INFUSION) 100 UNITS in SODIUM CHLORIDE 0.9% INJ 99 ML IV SCH (10:45)
--- NOTE | 2016-05-24 10:59 | PD.CAR.PN ---
CVT Progress Note Subjective/Hospital Course: sts data discussed with pt RISK SCORES About the STS Risk Calculator Procedure: CAB Only Risk of Mortality: 2.511% Morbidity or Mortality: 23.769% Long Length of Stay: 10.107% Short Length of Stay: 25.527% Permanent Stroke: 2.566% Prolonged Ventilation: 14.188% DSW Infection: 0.614% Renal Failure: 12.22% Reoperation: 7.619% Objective: Vital Signs Date Time Temp Pulse Resp B/P Pulse Ox O2 Delivery O2 Flow Rate FiO2 05/24/16 07:30 99.8 81 18 172/63 95 05/24/16 04:00 64 05/24/16 04:00 98.3 65 18 146/60 96 05/24/16 03:00 79 05/24/16 02:00 83 05/24/16 01:00 64 05/24/16 00:00 98.1 63 18 178/88 96 05/24/16 00:00 62 05/23/16 23:00 62 05/23/16 22:00 64 05/23/16 21:20 95 21 05/23/16 21:00 69 05/23/16 20:00 98.1 76 18 165/71 96 05/23/16 20:00 80 05/23/16 11:59 98.2 65 20 133/63 95 05/23/16 11:12 58 Labs: Laboratory Tests Test 05/24/16 04:13 Sodium Level 142 MEQ/L (136-145) Potassium Level 3.4 MEQ/L (3.5-5.1) Chloride Level 110 MEQ/L (98-107) Carbon Dioxide Level 24.4 MEQ/L (21.0-32.0) Anion Gap 8 MEQ/L (5-15) Blood Urea Nitrogen 14 MG/DL (7-18) Creatinine 1.54 MG/DL (0.60-1.30) Estimat Glomerular Filtration 53 ML/MIN (>89) Rate Random Glucose 149 MG/DL (74-106) Calcium Level 8.5 MG/DL (8.5-10.1) Result Diagram: 05/23/16 0500 05/24/16 0413 Fay Erickson May 24, 2016 10:58
--- NOTE | 2016-05-24 11:44 | MB ---
cc: STEFANIE GRIDER MD DATE OF CONSULTATION 05/24/2016 DATE OF 1935 REASON FOR CONSULTATION This is an 80-year-old male patient of Dr. Paulo Vazquez and Dr. Niki Jesus presented to the emergency room with chest discomfort. Currently he is pain-free. The pain started while he was working out in the yard. He also has some associated shortness of breath and decided to come in for evaluation. Denied having nausea or vomiting. No headache. No recent fevers, chills, no nausea, vomiting. No history of prior heart catheterization, coronary artery disease. States he does have a history of some heart failure. He presented with a blood pressure 220/105. He was started on some hydralazine. He is on Cozaar and hydralazine. His blood pressure is 146/60. His troponins were 0.12. He underwent heart catheterization by Dr. Niki Jesus found to have 50% left main stenosis. The LAD had a 50-70% ostial stenosis. The first diagonal had a 75% stenosis. The second diagonal had 80%. The circ was subtotally occluded and the RCA was subtotally occluded proximally. We were consulted to evaluate for coronary artery bypass grafting. PAST MEDICAL HISTORY The patient's past medical history is significant for: 1. Hypertension 2. Hyperlipidemia 3. Chronic kidney disease 4. Diabetes mellitus 5. Benign prostatic hypertrophy 6. CHF 7. Gastroesophageal reflux disease PAST SURGICAL HISTORY Include: 1. Prostate surgery 2. Laparoscopic cholecystectomy 3. Tonsillectomy 4. Bowel surgery ALLERGIES No known allergies MEDICATIONS Home meds include: 1. Finasteride 5 p.o. daily 2. Losartan 50 daily 3. Metformin 500 daily 4. Dorzolamide eye drops 5. Amlodipine 10 daily 6. Simvastatin 40 daily 7. Aspirin 325 daily 8. He takes 3 mEq of potassium daily. FAMILY HISTORY Mother is still alive at age 104. She is blind and lives in a fdc. Father in his 40s from an accident. SOCIAL HISTORY The patient , has three children. No illicit drugs. Smoked approximately for 20 years, quit in 1969. REVIEW OF SYSTEMS GENERAL: No night sweats, fever, heat and cold tolerance. SKIN: No psoriasis, itching or hives. HEENT: No blurred vision or hearing loss. RESPIRATORY: Positive for recent shortness of breath. CARDIOVASCULAR: Positive for recent chest pain. No paroxysmal nocturnal dyspnea. No orthopnea. GASTROINTESTINAL: No diarrhea or vomiting. GENITOURINARY: No burning frequency or urgency. FIELD HEALTH OFFICER: No history of TIA, CVA, seizure disorder. ENDOCRINOLOGY: No history of hypothyroidism. Positive for diabetes. PHYSICAL EXAM On exam, blood pressure 146/60, heart rate 64, O2 sat 96 on room air. Patient is awake and alert in no acute distress. HEAD: Normocephalic, atraumatic. EYES, EARS, NOSE AND THROAT: Pupils equal and reactive. Oral mucosa pink and moist. NECK: Supple. No JVD. HEART: S1, S2 regular rate and rhythm. No rubs, murmurs, gallops. LUNGS: Clear to auscultation. No wheezes, rales or rhonchi. ABDOMEN: Soft, nontender. No masses or organomegaly. RADIOLOGICAL EXAMS Chest x-ray showed no acute disease. He had a myocardial perfusion scan which showed some anterior wall perfusion defect at stress with redistribution at rest indicating ischemia with EF of 42%. LABORATORY DATA Lab work shows hemoglobin 11, hematocrit of 35, white cell count 7.3, platelet count 153. Sodium 142, potassium 3.4, BUN of 14 with a creatinine of 1.54, AST 32, ALT 26, lipase 474. He did undergo gallbladder ultrasound which was unremarkable. Did, however, show some medical renal disease. EKG shows normal sinus rhythm with nonspecific specific T-wave changes. IMPRESSION This is an 80-year-old male with multiple risk factors including age, hypertension, hyperlipidemia, diabetes with positive stress test and coronary catheterization to reveal three-vessel disease. Procedures, alternatives and risks have been discussed with the patient, also STS data will be discussed with the patient. The patient is agreeable to proceed. We will plan for a coronary artery bypass grafting, endoscopic vein harvesting in the a.m. further planning as per Dr. Stefanie Grider. Dictated by JUANCARLOS Rivera Stefanie MENENDEZ/PEGGY /10:53 AM /11:[address] [facility]OSPITALRodolfo
--- NOTE | 2016-05-24 13:00 | RADRPT ---
EXAM DATE/TIME: 05/24/2016 11:41 [facility] COMPARISON: No previous studies available for comparison. INDICATIONS : Pre Op cardiac surgery. MEDICAL HISTORY : Hypercholesterolemia. Gastroesophageal reflux disease. Congestive heart failure. Glaucoma. CAD. Hyper tension. Chronic kidney disease. Diabetes. SURGICAL HISTORY : Tonsillectomy. Bowel surgery. Prostate surgery. ENCOUNTER: Initial ACUITY: 1 day PAIN SCORE: 0/10 LOCATION: Bilateral legs. TECHNIQUE: Venous ultrasound of the left and right leg was performed from the inguinal ligament to the proximal calf. Real-time, color Doppler and spectral tracing, compression and augmentation techniques were us ed. FINDINGS: RIGHT LEG: There is incompletely occlusive debris within portions of the mid to distal right superficial femoral vein which may reflect recanalization of prior DVT. LEFT LEG: There is normal compressibility of the deep venous system from the inguinal region to the proximal ca lf. No echogenic clot is seen in the lumen of the common femoral, femoral, popliteal, and posterior tibial veins. There is a normal response of the venous system to proximal and distal augmentation an d respiration. CONCLUSION: Findings consistent with partially recanalized right superficial femoral vein DVT. No evidence of DVT on the left Maxi Gates MD on May 24, 2016 at 12:55 Board Certified Radiologist. This report was verified electronically.
--- NOTE | 2016-05-24 13:13 | RADRPT ---
EXAM DATE/TIME: 05/24/2016 11:13 [facility] COMPARISON: No previous studies available for comparison. INDICATIONS : Pre Op cardiac surgery. MEDICAL HISTORY : Hypercholesterolemia. Gastroesophageal reflux disease. Congestive heart failure. Glaucoma. CAD. Hyper tension. Chronic kidney disease. Diabetes. SURGICAL HISTORY : Tonsillectomy. Bowel surgery. Prostate surgery. ENCOUNTER: Initial ACUITY: 1 day PAIN SCORE: 0/10 LOCATION: Bilateral neck PEAK SYSTOLIC VELOCITIES (cm/sec): ICA/CCA RATIO: Right: 1.3 Left: 1.0 ICA: Right: 124 Left: 114 CCA: Right: 96 Left: 116 ECA: Right: 241 Left: 203 VERTEBRAL: Right: 58 antegrade Left: 49 antegrade Elevated flow velocities and ICA/CCA ratios have been found to correlate with increased degrees of vessel stenosis, calculated as percentage of diameter relative to a normal segment of distal ICA/CCA FINDINGS: RIGHT CAROTID: Moderate atheromatous irregularity at the carotid bifurcation. No evidence of flow-limiting stenosis LEFT CAROTID: Mild eccentric plaquing. VERTEBRAL ARTERIES: Antegrade flow is seen in both vertebral arteries. MISCELLANEOUS: Several right lobe thyroid nodules. CONCLUSION: No evidence of flow-limiting carotid stenosis. Thyroid nodules. Recommend thyroid sonography on an elective basis for further evaluation Maxi Gates MD on May 24, 2016 at 12:59 Board Certified Radiologist. This report was verified electronically.
--- NOTE | 2016-05-24 13:53 | RADRPT ---
EXAM DATE/TIME: 05/24/2016 11:55 [facility] COMPARISON: No previous studies available for comparison. INDICATIONS : Pre Op cardiac surgery. MEDICAL HISTORY : Hypercholesterolemia. Gastroesophageal reflux disease. Congestive heart failure. Glaucoma. CAD. Hyper tension. Chronic kidney disease. Diabetes. SURGICAL HISTORY : Tonsillectomy. Bowel surgery. Prostate surgery. ENCOUNTER: Initial ACUITY: 1 day PAIN SCORE: 0/10 LOCATION: Bilateral legs. GREATER SAPHENOUS VEIN THIGH: PROXIMAL: Right 2 mm Left 4 mm MID: Right 2 mm Left 2 mm DISTAL: Right 2 mm Left 2 mm CALF: PROXIMAL: Right 2 mm Left 1 mm MID: Right 2 mm Left 1 mm DISTAL: Right 2 mm Left 2 mm FINDINGS: The venous system of the lower extremities are patent by color Doppler imaging. Measurements of the leg veins (in mm) are listed above. CONCLUSION: Bilateral lower extremity venous mapping as detailed above. Trevin Hernandez Jr., MD on May 24, 2016 at 13:50 Board Certified Radiologist. This report was verified electronically.
[2016-05-24] MEDS: SODIUM CHLOR 0.9% 1000 ML INJ 1,000 ML IV SCH (16:45)
[2016-05-24 17:48] LABS: HEMOGLOBIN A1a 0.8 %; HEMOGLOBIN A1b 1.4 %; HEMOGLOBIN Ao 86.3 %; HEMOGLOBIN LA1C 1.9 %; HEMOGLOBIN P3 3.5 %
[2016-05-24 18:02] LABS: BACTERIA, URINE RARE /hpf; BLOOD, URINE NEG (NEG); COMMENT (UR) CULT NOT INDICATED; CULTURE IF INDICATED CULT NOT INDICATED; GLUCOSE,URINE NEG (NEG); KETONE, URINE NEG (NEG); MUCUS URINE FEW /lpf (OCC); NITRITE,URINE NEG (NEG); SQUAMOUS EPITHELIAL CELL URINE <1 /hpf (0-5); URINE COLOR LIGHT-YELLOW (YELLW/STRAW)
[2016-05-24] MEDS: PRAVASTATIN SOD 80 MG TAB PO SCH (20:28)
[2016-05-24] MEDS ORDERED: SODIUM CHLORIDE 0.9% FLUSH 5 ML FLUSH IV FLUSH SCH (21:00)
[2016-05-25] VITALS (19 sets, daily range): BP systolic 108–172; BP diastolic 54–79; PULSE 50–77; RESP 10–20; TEMP 97.3–98.3; O2SAT 89–98
[2016-05-25] MEDS: hydrALAZINE HCL 25 MG TAB PO SCH ×2 (04:19→21:00)
[2016-05-25] MEDS ORDERED: INSULIN HUMAN REGULAR 1,000 UNITS/10 ML VIAL SQ PRN (04:45)
[2016-05-25 04:52] LABS: AUTOMATED NEUTROPHIL # 5.9 TH/MM3 (1.8-7.7); BASOPHIL % 0.3 % (0.0-2.0); EOSINOPHIL # 0.2 TH/MM3 (0-0.4); EOSINOPHIL % 2.4 % (0.0-4.0); HEMATOCRIT 35.7 % (39.0-51.0); HEMO FLAGS DIFF FINAL; LYMPHOCYTE # 1.5 TH/MM3 (1.0-4.8); MEAN CELL VOLUME 90.4 FL (80.0-100.0); MEAN CORPUSCULAR HEMOGLOBIN 30.3 PG (27.0-34.0); MEAN CORPUSCULAR HGB CONC 33.5 % (32.0-36.0); MONO % 7.7 % (0.0-8.0); NEUT % 71.6 % (16.0-70.0); PLATELET COUNT 169 TH/MM3 (150-450); RED BLOOD COUNT 3.95 MIL/MM3 (4.50-5.90); WHITE BLOOD COUNT 8.2 TH/MM3 (4.0-11.0)
[2016-05-25] MEDS ORDERED: PROTAMINE SULFATE 250 MG/25 ML VIAL IV ONE ×2 (05:00→10:04)
[2016-05-25] MEDS ORDERED: ceFAZolin INJ 1,000 MG VIAL IV ONE ×2 (05:00→11:20)
[2016-05-25] MEDS ORDERED: EPINEPHrine HCL (1:10,000) 1 MG/10 ML SYRINGE IV ONE (05:00)
[2016-05-25] MEDS ORDERED: ACETAMINOPHEN 1000 MG/100 ML VIAL IV ONE (05:00)
[2016-05-25] MEDS ORDERED: HEPARIN SODIUM - SQ 10,000 UNITS/ML VIAL SQ ONE (05:00)
[2016-05-25] MEDS ORDERED: VECURONIUM BROMIDE 10 MG VIAL IV ONE (05:00)
[2016-05-25] MEDS ORDERED: PHENYLEPHRINE HCL 10 MG/ML VIAL IV ONE (05:00)
[2016-05-25] MEDS ORDERED: NITROGLYCERIN-DEXTROSE INJ 250 ML IV ONE (05:00)
[2016-05-25] MEDS ORDERED: MAGNESIUM SULFATE 1000 MG/2 ML VIAL (PED) IV ONE (05:00)
[2016-05-25] MEDS ORDERED: LIDOCAINE HCL 1% 30 ML VIAL OTHER ONE (05:00)
[2016-05-25] MEDS ORDERED: DEXMEDETOMIDINE INJ 50 ML IV ONE (05:00)
[2016-05-25] MEDS ORDERED: ceFAZolin 2 GM PREMIX 50 ML IV ONE (05:00)
[2016-05-25 05:13] LABS: BICARBONATE 22.3 MEQ/L (21.0-32.0); POTASSIUM 3.4 MEQ/L (3.5-5.1)
[2016-05-25] MEDS: CARVEDILOL 3.125 MG TAB PO SCH ×2 (05:33→21:00)
[2016-05-25] MEDS ORDERED: VANCOMYCIN HCL 1000 MG VIAL ONE (06:19)
[2016-05-25] MEDS ORDERED: HEPARIN SODIUM - SQ 10,000 UNITS/ML VIAL ONE (06:19)
[2016-05-25] MEDS ORDERED: BACITRACIN OINT 0.9 GM PKT ONE (07:15)
[2016-05-25] MEDS ORDERED: SODIUM CHLORID 0.9% 500 ML IV SCH (07:30)
[2016-05-25] MEDS: LACTATED RINGER'S 1000 ML IV SCH (07:30)
[2016-05-25] MEDS: LOSARTAN 50 MG TAB PO SCH (09:00)
[2016-05-25] MEDS: glipiZIDE 10 MG TAB PO SCH (09:00)
[2016-05-25] MEDS: FINASTERIDE 5 MG TAB PO SCH (09:00)
[2016-05-25] MEDS ORDERED: NORMOSOL R INJ 3,000 ML IV ONE (10:04)
[2016-05-25] MEDS ORDERED: POTASSIUM CHLOR 20 MEQ PREMIX 100 ML ONE (10:42)
[2016-05-25] MEDS ORDERED: LACTATED RINGER'S 1000 ML INJ 500 ML IV PRN (10:58)
[2016-05-25] MEDS ORDERED: DOBUTamine PREMIX DRIP 250 ML IV SCH (10:58)
[2016-05-25] MEDS ORDERED: EPINEPHrine (1:1000) INJ 4 MG in DEXTROSE 5% IN WATER INJ 246 ML IV SCH ×2 (11:00)
[2016-05-25] MEDS ORDERED: DOPamine INJ PREMIX 500 ML IV SCH (11:00)
[2016-05-25] MEDS ORDERED: INSULIN REGULAR (IV INFUSION) 100 UNITS in SODIUM CHLORIDE 0.9% INJ 99 ML IV SCH (11:00)
[2016-05-25] MEDS ORDERED: ACETAMINOPHEN/HYDROcodone 325 MG/5 MG TAB PO PRN (11:00)
[2016-05-25] MEDS ORDERED: CALCIUM CHLORIDE 10% 1 GRAM/10 ML VIAL IV PRN (11:00)
[2016-05-25] MEDS ORDERED: METOPROLOL TARTRATE 5 MG/5 ML VIAL IV PUSH PRN (11:00)
[2016-05-25] MEDS ORDERED: PHENYLEPHRINE INJ 40 MG in DEXTROSE 5% IN WATE 500 ML INJ 496 ML IV SCH ×2 (11:00)
[2016-05-25] MEDS ORDERED: NITROGLYCERIN-DEXTROSE INJ 250 ML IV SCH (11:00)
[2016-05-25] MEDS ORDERED: ONDANSETRON HCL 4 MG/2 ML VIAL IV PUSH PRN (11:00)
[2016-05-25] MEDS ORDERED: MORPHINE SULFATE 4 MG/ML INJ IV PRN (11:00)
[2016-05-25] MEDS ORDERED: MEPERIDINE HCL 25 MG/ML VIAL IV PRN (11:00)
[2016-05-25] MEDS ORDERED: SODIUM CHLORIDE 0.9% FLUSH 5 ML FLUSH IV FLUSH PRN (11:00)
[2016-05-25] MEDS ORDERED: POTASSIUM CHLORIDE 20 MEQ CONTROLLED RELEASE TAB PO PRN ×2 (11:00)
[2016-05-25] MEDS ORDERED: ALBUMIN HUMAN 5% 12.5 GM/250 ML BOTTLE IV PRN (11:00)
[2016-05-25] MEDS ORDERED: DEXTROSE 50% IN WATER 50 ML VIAL(D50) IV PUSH PRN (11:00)
[2016-05-25] MEDS ORDERED: ACETAMINOPHEN 650 MG SUPP RECTAL PRN (11:00)
[2016-05-25] MEDS ORDERED: hydrALAZINE HCL 20 MG/ML VIAL IV PRN (11:00)
[2016-05-25] MEDS ORDERED: POTASSIUM CHLOR 20 MEQ PREMIX 100 ML IV PRN ×2 (11:00)
[2016-05-25] MEDS ORDERED: MAGNESIUM SULFATE INJ 2 GM in SODIUM CHLORIDE 0.9% INJ 100 ML IV PRN ×4 (11:00)
[2016-05-25] MEDS ORDERED: Post-op Orders (for Pharmacy) MISC OTHER ONE (11:00)
[2016-05-25] MEDS ORDERED: ACETAMINOPHEN 325 MG TAB PO PRN (11:00)
[2016-05-25] MEDS ORDERED: CLEVIDIPINE INJ 50 ML IV SCH (11:00)
[2016-05-25] MEDS ORDERED: DEXMEDETOMIDINE INJ 50 ML IV SCH (11:00)
[2016-05-25] MEDS ORDERED: MIDAZOLAM HCL 5 MG/5 ML VIAL ONE (11:49)
[2016-05-25] MEDS ORDERED: fentaNYL CITRATE 1000 MCG/20 ML VIAL ONE (11:50)
[2016-05-25] MEDS: POTASSIUM CHLOR 20 MEQ PREMIX 100 ML IV PRN ×3 (12:10→18:59)
[2016-05-25] MEDS: ACETAMINOPHEN 1000 MG/100 ML VIAL IV SCH ×3 (12:11→23:56)
[2016-05-25] MEDS: CALCIUM CHLORIDE INJ 1 GM in SODIUM CHLORIDE 0.9% INJ 100 ML IV PRN ×2 (12:11→16:51)
--- NOTE | 2016-05-25 13:12 | RADRPT ---
EXAM DATE/TIME: 05/25/2016 12:09 [facility] COMPARISON: CHEST SINGLE AP, March 27, 2012, 14:22. INDICATIONS : Evaluate heart and lungs post CABG. MEDICAL HISTORY : Hypertension. Diabetes mellitus type II. SURGICAL HISTORY : CABG. ENCOUNTER: Subsequent ACUITY: 3 days PAIN SCORE: Non-responsive. LOCATION: chest FINDINGS: A single portable frontal view of the chest shows a left thoracostomy tube. No pneumothorax. Endotrac heal tube tip is approximately 5 cm cephalad to the sintia. Nasogastric tube courses off the inferior margin of the film. Central line noted. A catheter overlies the midline felt to be a sub-xiphoid brianna st tube. Bibasilar parenchymal passes. Heart is mildly enlarged. No effusions or pneumothoraces. Medi an sternotomy wires. CONCLUSION: 1. Median sternotomy with associated life support lines as detailed above. 2. No pneumothorax. 3. Bibasilar atelectasis. 4. Cardiomegaly. Trevin Hernandez Jr., MD on May 25, 2016 at 13:09 Board Certified Radiologist. This report was verified electronically.
--- NOTE | 2016-05-25 13:45 | PD.OP ---
cc: Niki Jesus MD; Elio Pérez MD Operative Report Date of Surgery: May 25, 2016 Preoperative Diagnosis: Postoperative Diagnosis: Procedure: 1. Urgent Off-pump Coronary Artery Bypass Grafting x 2 with left internal mammary artery (RAGLAND) to left anterior descending (LAD), reverse saphenous vein graft to D1 2. Left Leg Endoscopic Vein [place] 3. Intraoperative Vein Mapping. . Surgeon: Elio Pérez Printing Agent(s): Alejandra Joyner Operation and Findings: PREPROCEDURE DIAGNOSES 1. Severe Multi-Vessel Coronary Artery Disease. 2. Left Ventricular Dysfunction 3. Unstable Angina POSTPROCEDURE DIAGNOSES Same SURGICAL PROCEDURE 1. Urgent Off-pump Coronary Artery Bypass Grafting x 2 with left internal mammary artery (RAGLAND) to left anterior descending (LAD), reverse saphenous vein graft to D1 2. Left Leg Endoscopic Vein [place] 3. Intraoperative Vein Mapping. SURGEON Elio Pérez MD FINANCIAL INSTITUTION VICE PRESIDENT VIOLETTE Noriega ANESTHESIA General endotracheal . DRIVABILITY TECHNICIAN Kimberly Castillo, MENDEZ Marino, ZAID Champion MD PREPARATION ChloraPrep. COUNTS Needle, sponge, and instrument counts were correct. DRAINS Two 32-[place] mediastinal tubes. COMPLICATIONS None. INDICATIONS FOR PROCEDURE The patient is a 80-year-old presenting with chest pain. Patient was noted to have multi-vessel coronary artery disease. The patient is being brought to the operating room for surgical revascularization therapy. PROCEDURE Patient was brought to the operating room and placed supine on the OR table. Following the induction of adequate general endotracheal anesthesia and placement of appropriate monitoring devices, intraoperative vein mapping was performed which revealed usable-caliber conduit in bilateral lower extremities. The patient was then prepped and draped in standard sterile fashion. Next, 2500 units of intravenous heparin was given. The left greater saphenous vein was harvested endoscopically. This appeared to be a large but useable-caliber conduit. Simultaneously, a median sternotomy was performed and the left internal mammary artery dissected free off the posterior sternal table. The patient was systemically heparinized and anticoagulation monitored by serial ACT measurements. The internal mammary artery had good pulsatile flow in it and was a good-caliber conduit. The pericardium was then divided in the midline , the cradle created and targets analyzed. At this point, all anastomoses were performed in a beating-heart fashion using the Maquet stabilizing system. The left internal mammary artery was anastomosed to the distal LAD in an end-to- side fashion using 7-0 Prolene. The LAD was diffusely and severely diseased and the anastomosis was performed in between sections of calcified plaque. Segment of saphenous vein graft was then anastomosed to the diagonal 1 in an end-to- side fashion using 7-0 Prolene. Again this vessel was very heavily calcified and small caliber (1.0 mm). The diagonal 2 was inspected and noted to be completely calcified throughout its entire course with no available sites for grafting. There was extensive scarring in the lateral and inferior wall suggestive of previous infarctions. The proximal anastomosis was then constructed to the ascending aorta in a running manner using 6-0 Prolene. All anastomotic sites were inspected and appeared to be hemostatic and patent. Protamine solution was given. Strict hemostasis was assured. The closure was undertaken. 2 chest tubes were placed. The pericardium was reapproximated in the midline. The sternum was approximated using sternal wires. The muscular and fascial layer were then closed in 3 layers. The endoscopic vein harvest site was closed in 2 layers. The patient tolerated the procedure well and was transferred to CVICU in stable condition. Elio Pérez MD May 25, 2016 13:45
[2016-05-25] MEDS: ceFAZolin 2 GM PREMIX 50 ML IV SCH ×2 (14:34→20:09)
[2016-05-25] MEDS ORDERED: RESP: ALBUTEROL 2.5 MG/IPRATROPIUM 0.5 MG NEB (PRN) NEB (15:15)
[2016-05-25] MEDS ORDERED: RESP: RACEPINEPHRINE 2.25% 0.5 ML NEB NEB PRN (15:15)
[2016-05-25 16:11] LABS: BLOOD GAS BASE EXCESS -7.2 mmol/L (-2-2); BLOOD GAS CARBOXYHEMOGLOBIN 1.7 % (0-4); BLOOD GAS HCO3 18 mmol/L (22-26); BLOOD GAS O2 HGB SATURATION 96 % (90-100); BLOOD GAS PCO2 38 mmHg (38-42); BLOOD GAS PO2 140 mmHg (61-120); BLOOD GAS TOTAL HGB 10.2 G/DL (12.0-16.0); CRITICAL VALUE NO; DRAW SITE ART LINE; FIO2 80 %; NUMBER OF ARTERIAL PUNCTURES 0; OXYGEN DEVICE BiPAP; STAT NO; TEMP CORR TO 98.6; ULNAR PULSE PRESENT; VENT SETTINGS IPAP10/EPAP5
[2016-05-25] MEDS ORDERED: SODIUM BICARBONATE 8.4% INJ 50 ML ONE (16:23)
[2016-05-25] MEDS ORDERED: SODIUM BICARBONATE 8.4% INJ 50 MEQ/50 ML SYR ONE (16:45)
[2016-05-25] MEDS: AMIODARONE 200 MG TAB PO SCH (20:09)
[2016-05-25] MEDS: PRAVASTATIN SOD 80 MG TAB PO SCH (20:09)
[2016-05-25] MEDS: DORZOLAMIDE 2% OPTH SOLN 200 DROP/10 ML BTLO EACH EYE SCH (21:00)
[2016-05-25] MEDS: INSULIN ASPART SUPPLEMENTAL SCALE SQ SCH (21:00)
[2016-05-25] MEDS: SODIUM CHLORIDE 0.9% FLUSH 5 ML FLUSH IV FLUSH SCH (21:00)
[2016-05-25] MEDS: RESP: ALBUTEROL 2.5 MG/IPRATROPIUM 0.5 MG NEB (SCH) NEB (21:59)
[2016-05-26] VITALS (25 sets, daily range): BP systolic 115–172; BP diastolic 50–79; PULSE 64–83; RESP 16–20; TEMP 97.7–99.2; O2SAT 93–97
[2016-05-26] MEDS: hydrALAZINE HCL 25 MG TAB PO SCH ×4 (03:00→20:15)
[2016-05-26] MEDS: RESP: ALBUTEROL 2.5 MG/IPRATROPIUM 0.5 MG NEB (SCH) NEB ×4 (04:20→19:43)
[2016-05-26 04:35] LABS: HEMATOCRIT 30.9 % (39.0-51.0); MEAN CELL VOLUME 90.2 FL (80.0-100.0); MEAN CORPUSCULAR HEMOGLOBIN 30.5 PG (27.0-34.0); MEAN CORPUSCULAR HGB CONC 33.8 % (32.0-36.0); PLATELET COUNT 149 TH/MM3 (150-450); RED BLOOD COUNT 3.42 MIL/MM3 (4.50-5.90); RED CELL DISTRIBUTION WIDTH 12.9 % (11.6-17.2); REVIEW FLAG FINAL; WHITE BLOOD COUNT 16.9 TH/MM3 (4.0-11.0)
--- NOTE | 2016-05-26 04:40 | RADRPT ---
EXAM DATE/TIME: 05/26/2016 04:00 [facility] COMPARISON: CHEST SINGLE AP, May 25, 2016, 12:09. INDICATIONS : Shortness of breath, possible pulmonary disease. MEDICAL HISTORY : Hypertension. Diabetes mellitus type II. SURGICAL HISTORY : CABG. ENCOUNTER: Subsequent ACUITY: 4 - 6 days PAIN SCORE: Non-responsive. LOCATION: Bilateral chest FINDINGS: Cardiomegaly, left-sided chest tube, left lower lobe consolidation, right jugular line, mediastinal t ube and degenerative changes of the spine are noted. Small left effusion. CONCLUSION: Left lower lobe consolidation and small left effusion appear slightly increased. James Ledesma MD on May 26, 2016 at 4:38 Board Certified Radiologist. This report was verified electronically.
[2016-05-26 05:06] LABS: BICARBONATE 23.4 MEQ/L (21.0-32.0); MAGNESIUM 2.1 MG/DL (1.5-2.5); POTASSIUM 4.2 MEQ/L (3.5-5.1)
[2016-05-26] MEDS: ceFAZolin 2 GM PREMIX 50 ML IV SCH ×3 (05:25→20:19)
[2016-05-26] MEDS: PANTOPRAZOLE SOD 40 MG DELAYED RELEASE TAB PO SCH (05:26)
[2016-05-26] MEDS: ACETAMINOPHEN 1000 MG/100 ML VIAL IV SCH (06:00)
[2016-05-26] MEDS: ACETAMINOPHEN/HYDROcodone 325 MG/5 MG TAB PO PRN ×2 (06:16→20:17)
[2016-05-26] MEDS: INSULIN ASPART SUPPLEMENTAL SCALE SQ SCH ×4 (07:00→20:18)
--- NOTE | 2016-05-26 07:14 | PD.CAR.PN ---
CVT Progress Note Subjective/Hospital Course: 05/25 SURGICAL PROCEDURE 1. Urgent Off-pump Coronary Artery Bypass Grafting x 2 with left internal mammary artery (RAGLAND) to left anterior descending (LAD), reverse saphenous vein graft to D1 2. Left Leg Endoscopic Vein [place] 3. Intraoperative Vein Mapping. 05/26 Doing well Extubated and tolerating Transfer CPCU Ambulate Baseline creatinine 1.3-1.5. Presently 1.45. Will continue to monitor Objective: Vital Signs Date Time Temp Pulse Resp B/P Pulse Ox O2 Delivery O2 Flow Rate FiO2 05/26/16 04:20 97 50 05/26/16 04:20 94 Nasal Cannula 5.00 05/26/16 03:00 73 05/26/16 03:00 95 Bi-Pap 50 05/26/16 03:00 98.1 70 20 141/72 96 144/55 05/26/16 01:00 96 Bi-Pap 50 05/26/16 00:58 96 50 05/26/16 00:00 98.5 83 20 136/50 94 134/74 05/25/16 23:00 94 Nasal Cannula 4.00 05/25/16 23:00 98.3 72 20 150/77 94 156/58 05/25/16 23:00 77 05/25/16 21:59 93 Nasal Cannula 4.00 05/25/16 19:30 77 128/68 130/54 05/25/16 19:00 76 05/25/16 19:00 94 Nasal Cannula 4.00 05/25/16 19:00 97.3 77 18 128/68 94 130/54 05/25/16 17:30 99 Bi-Pap 60 05/25/16 17:00 99 Bi-Pap 70 05/25/16 16:00 97 Bi-Pap 80 05/25/16 15:17 97 100 05/25/16 15:15 97 Bi-Pap 100 Non-Rebreather 05/25/16 15:00 97.4 70 17 142/75 97 138/59 05/25/16 15:00 70 05/25/16 15:00 89 Non-Rebreather 100 05/25/16 15:00 89 Non-Rebreather 100 05/25/16 13:25 94 Nasal Cannula 6 05/25/16 13:05 97 Mechanical Ventilator 50 05/25/16 13:00 40 05/25/16 13:00 98 Mechanical Ventilator 60 05/25/16 13:00 Nasal Cannula 94 50 05/25/16 12:58 98 60 05/25/16 12:56 60 05/25/16 12:41 97.3 50 10 108/59 98 108/59 05/25/16 12:35 50 05/25/16 12:12 94 100 05/25/16 11:55 94 Mechanical Ventilator 100 05/25/16 11:40 100 05/25/16 11:35 98 Mechanical Ventilator 50 05/25/16 11:35 50 Labs: Laboratory Tests Test 05/26/16 04:10 White Blood Count 16.9 TH/MM3 (4.0-11.0) Red Blood Count 3.42 MIL/MM3 (4.50-5.90) Hemoglobin 10.4 GM/DL (13.0-17.0) Hematocrit 30.9 % (39.0-51.0) Mean Corpuscular Volume 90.2 FL (80.0-100.0) Mean Corpuscular Hemoglobin 30.5 PG (27.0-34.0) Mean Corpuscular Hemoglobin 33.8 % Concent (32.0-36.0) Red Cell Distribution Width 12.9 % (11.6-17.2) Platelet Count 149 TH/MM3 (150-450) Mean Platelet Volume 9.5 FL (7.0-11.0) Sodium Level 141 MEQ/L (136-145) Potassium Level 4.2 MEQ/L (3.5-5.1) Chloride Level 109 MEQ/L (98-107) Carbon Dioxide Level 23.4 MEQ/L (21.0-32.0) Anion Gap 9 MEQ/L (5-15) Blood Urea Nitrogen 14 MG/DL (7-18) Creatinine 1.45 MG/DL (0.60-1.30) Estimat Glomerular Filtration 57 ML/MIN (>89) Rate Random Glucose 110 MG/DL (74-106) Calcium Level 8.3 MG/DL (8.5-10.1) Magnesium Level 2.1 MG/DL (1.5-2.5) Result Diagram: 05/26/16 0410 05/26/16 041 Elio Pérez MD May 26, 2016 07:14
[2016-05-26] MEDS ORDERED: BISACODYL 10 MG SUPP RECTAL PRN (07:15)
[2016-05-26] MEDS ORDERED: SOD PHOSPHATE/SOD BIPHOSPHATE (ADULT) ENEMA 133ML RECTAL PRN (07:15)
[2016-05-26] MEDS ORDERED: GLUCAGON 1 MG/ML VIAL OTHER PRN (07:15)
[2016-05-26] MEDS ORDERED: DEXTROSE 50% IN WATER 50 ML VIAL(D50) IV PRN (07:15)
[2016-05-26] MEDS: LACTATED RINGER'S 1000 ML IV SCH ×2 (07:30→22:47)
[2016-05-26] MEDS: DORZOLAMIDE 2% OPTH SOLN 200 DROP/10 ML BTLO EACH EYE SCH ×2 (08:54→20:20)
[2016-05-26] MEDS: CLOPIDOGREL 75 MG TAB PO SCH (08:55)
[2016-05-26] MEDS: FINASTERIDE 5 MG TAB PO SCH (08:55)
[2016-05-26] MEDS: MULTIVITAMINS/MINERALS THERAPEUTIC TAB PO SCH (08:55)
[2016-05-26] MEDS: CARVEDILOL 3.125 MG TAB PO SCH ×2 (08:55→20:16)
[2016-05-26] MEDS: ATORVASTATIN 40 MG TAB PO SCH (08:55)
[2016-05-26] MEDS: glipiZIDE 10 MG TAB PO SCH (08:55)
[2016-05-26] MEDS: ASPIRIN 81 MG CHEW TAB PO SCH (08:55)
[2016-05-26] MEDS: SODIUM CHLORIDE 0.9% FLUSH 5 ML FLUSH IV FLUSH SCH ×2 (08:55→20:19)
[2016-05-26] MEDS: MAGNESIUM HYDROXIDE SUSP 30 ML CUP PO SCH (08:55)
[2016-05-26] MEDS: AMIODARONE 200 MG TAB PO SCH ×2 (08:56→20:16)
[2016-05-26] MEDS: LOSARTAN 50 MG TAB PO SCH (08:56)
[2016-05-26] MEDS ORDERED: CLOPIDOGREL 75 MG TAB PO SCH (09:00)
--- NOTE | 2016-05-26 12:01 | HHI.PR ---
Subjective Interval History awake alert and oriented s/p CABG x2 POD 1 extubated sitiing in chair pain controlled worked with PT no fever no sob no other complaints family at bed side Vitals/Results Intake & Output 05/25/16 05/25/16 05/26/16 15:00 23:00 07:00 Intake Total 2611 ml 1039 ml Output Total 885 ml 700 ml Balance 1726 ml 339 ml Intake Oral 720 ml IV Total 2611 ml 319 ml Output Urine Total 590 ml 500 ml Gastric Drainage Total 25 ml Chest Tube Drainage Total 270 ml 200 ml # Bowel Movements 0 0 Vital Signs Vital Signs Date Time Temp Pulse Resp B/P Pulse Ox O2 Delivery O2 Flow Rate FiO2 05/26/16 07:37 73 05/26/16 07:37 96 Nasal Cannula 4.00 05/26/16 07:33 98.1 73 20 120/63 96 Arterial Line 05/26/16 07:28 20 05/26/16 04:20 97 50 05/26/16 04:20 94 Nasal Cannula 5.00 05/26/16 03:00 73 05/26/16 03:00 95 Bi-Pap 50 05/26/16 03:00 98.1 70 20 141/72 96 144/55 05/26/16 01:00 96 Bi-Pap 50 05/26/16 00:58 96 50 05/26/16 00:00 98.5 83 20 136/50 94 134/74 05/25/16 23:00 94 Nasal Cannula 4.00 05/25/16 23:00 98.3 72 20 150/77 94 156/58 05/25/16 23:00 77 05/25/16 21:59 93 Nasal Cannula 4.00 05/25/16 19:30 77 128/68 130/54 05/25/16 19:00 76 05/25/16 19:00 94 Nasal Cannula 4.00 05/25/16 19:00 97.3 77 18 128/68 94 130/54 05/25/16 17:30 99 Bi-Pap 60 05/25/16 17:00 99 Bi-Pap 70 05/25/16 16:00 97 Bi-Pap 80 05/25/16 15:17 97 100 05/25/16 15:15 97 Bi-Pap 100 Non-Rebreather 05/25/16 15:00 97.4 70 17 142/75 97 138/59 05/25/16 15:00 70 05/25/16 15:00 89 Non-Rebreather 100 05/25/16 15:00 89 Non-Rebreather 100 05/25/16 13:25 94 Nasal Cannula 6 05/25/16 13:05 97 Mechanical Ventilator 50 05/25/16 13:00 40 05/25/16 13:00 98 Mechanical Ventilator 60 05/25/16 13:00 Nasal Cannula 94 50 05/25/16 12:58 98 60 05/25/16 12:56 60 05/25/16 12:41 97.3 50 10 108/59 98 108/59 05/25/16 12:35 50 05/25/16 12:12 94 100 CBC/BMP: 05/26/16 0410 05/26/16 0410 Lab Results Laboratory Tests Test 05/25/16 05/26/16 13:55 04:10 Blood Gas Puncture Site ART LINE Blood Gas Patient Temperature 98.6 Blood Gas HCO3 18 mmol/L Blood Gas Base Excess -7.2 mmol/L Blood Gas Oxygen Saturation 96 % Arterial Blood pH 7.30 Arterial Blood Partial 38 mmHg Pressure CO2 Arterial Blood Partial 140 mmHg Pressure O2 Arterial Blood Oxygen Content 14.0 Vol % Arterial Blood 1.7 % Carboxyhemoglobin Arterial Blood Methemoglobin 1.0 % Blood Gas Hemoglobin 10.2 G/DL Oxygen Delivery Device BiPAP Blood Gas Ventilator Setting IPAP10/[id number] Blood Gas Inspired Oxygen 80 % White Blood Count 16.9 TH/MM3 Red Blood Count 3.42 MIL/MM3 Hemoglobin 10.4 GM/DL Hematocrit 30.9 % Mean Corpuscular Volume 90.2 FL Mean Corpuscular Hemoglobin 30.5 PG Mean Corpuscular Hemoglobin 33.8 % Concent Red Cell Distribution Width 12.9 % Platelet Count 149 TH/MM3 Mean Platelet Volume 9.5 FL Sodium Level 141 MEQ/L Potassium Level 4.2 MEQ/L Chloride Level 109 MEQ/L Carbon Dioxide Level 23.4 MEQ/L Anion Gap 9 MEQ/L Blood Urea Nitrogen 14 MG/DL Creatinine 1.45 MG/DL Estimat Glomerular Filtration 57 ML/MIN Rate Random Glucose 110 MG/DL Calcium Level 8.3 MG/DL Magnesium Level 2.1 MG/DL Physical Exam General General Appearance: Well Developed, Well Nourished, No Acute Distress, Comfortable Eyes Eye Exam: Pupils Equal, Pupils Reactive Ears & Nose Ears & Nose Exam: Nasal Mucosa [place] Throat Throat Exam: Oral Mucosa [place] & Moist Neck Neck Exam: Neck Supple, Trachea Midline Pulmonary Resp Exam: Clear Bilaterally, No Distress Cardiology CV Exam: Regular, Good Perfusion Chest/Breast Chest/Breast Remarks dressing, chest tubes Gastrointestinal/Abdomen GI Exam: Soft, Non-Tender, Bowel Sounds Present, Non-Distended Musculoskeletal MS Exam: Joints Intact Integumentary Skin Exam: Warm, Dry Extremeties Extremities Exam: Pedal Pulses Palpable, Trace Edema Neurologic Neuro Exam: Alert, Awake, Oriented, Speech Clear, Moving All Extremities, No Focal Deficits Psychiatric Psych Exam: Appropriate Responses VTE Prophylaxis VTE Prophylaxis Meds: Heparin Assessment/Plan Assessment/Plan ASSESSMENT 1. Chest pain, rule out myocardial infarction, mildly elevated trop 2. s/p CABG x2 05/25/16 3. Chronic kidney disease. 4. Diabetes type 2, non-insulin dependent. 5. Gastroesophageal reflux disease. 6. Hypertension, uncontrolled 7. Cough, mild. 8. Elevated lipase Plan Appreciate card input Abnormal STT s/p cardiac cath with occluded RCA/ circumflex and severe disease in prox LAD Appreciater CTS input s/p CABG x2 POD 2 post op care and chest tube management per CTS on ASA plavix Lipitor and Amio heart rate appears stable post op leucocytosis no fever continue isabell op Cefazolin monitor leucocytosis CXR with possible LLL consolidation elevated lipase, asymptomatic pancreas US okay Continue accuchecks with AC/HS diabetic diet Renal fx stable h/o CKD monitor renal function DVT prophylaxis D/W pt Faustina Sosa MD May 26, 2016 12:00
--- NOTE | 2016-05-26 14:35 | EKG ---
Date Performed: 05/26/2016 Time Performed: 04:19:06 PTAGE: 80 years EKG: Sinus rhythm . Inferior infarct - age undetermined Ant/septal and lateral T wave changes may be due to myocardial ischemia Abnormal ECG PREVIOUS TRACING : 05/21/2016 22.34 Compared to previous tracing, possible inferior infarct pat tern is now evident, anterolateral T wave changes are now present. DOCTOR: Anton Fenton Interpretating Date/Time 05/26/2016 14:34:49
[2016-05-26] MEDS: DOCUSATE SODIUM 100 MG CAP PO SCH (20:16)
[2016-05-26] MEDS: PRAVASTATIN SOD 80 MG TAB PO SCH (20:16)
[2016-05-26] MEDS: SENNOSIDES 8.6 MG TAB PO SCH (20:16)
[2016-05-27] VITALS (30 sets, daily range): BP systolic 122–152; BP diastolic 58–68; PULSE 60–84; RESP 16–18; TEMP 98–98.9; O2SAT 90–95
[2016-05-27] MEDS: hydrALAZINE HCL 25 MG TAB PO SCH ×4 (03:19→21:32)
[2016-05-27 05:21] LABS: AUTOMATED NEUTROPHIL # 11.8 TH/MM3 (1.8-7.7); BASOPHIL % 0.3 % (0.0-2.0); EOSINOPHIL # 0.1 TH/MM3 (0-0.4); EOSINOPHIL % 0.5 % (0.0-4.0); HEMATOCRIT 29.1 % (39.0-51.0); HEMO FLAGS DIFF FINAL; LYMPH % 5.5 % (9.0-44.0); LYMPHOCYTE # 0.8 TH/MM3 (1.0-4.8); MEAN CELL VOLUME 90.7 FL (80.0-100.0); MEAN CORPUSCULAR HEMOGLOBIN 30.5 PG (27.0-34.0); MEAN CORPUSCULAR HGB CONC 33.6 % (32.0-36.0); NEUT % 85.7 % (16.0-70.0); PLATELET COUNT 129 TH/MM3 (150-450); RED BLOOD COUNT 3.21 MIL/MM3 (4.50-5.90); RED CELL DISTRIBUTION WIDTH 13.1 % (11.6-17.2); WHITE BLOOD COUNT 13.8 TH/MM3 (4.0-11.0)
[2016-05-27 05:40] LABS: BICARBONATE 22.8 MEQ/L (21.0-32.0); MAGNESIUM 2.3 MG/DL (1.5-2.5); POTASSIUM 4.3 MEQ/L (3.5-5.1)
[2016-05-27] MEDS: PANTOPRAZOLE SOD 40 MG DELAYED RELEASE TAB PO SCH (05:56)
[2016-05-27] MEDS: INSULIN ASPART SUPPLEMENTAL SCALE SQ SCH ×4 (05:57→21:33)
[2016-05-27] MEDS: RESP: ALBUTEROL 2.5 MG/IPRATROPIUM 0.5 MG NEB (SCH) NEB ×3 (07:45→19:45)
[2016-05-27] MEDS: CLOPIDOGREL 75 MG TAB PO SCH (09:00)
[2016-05-27] MEDS: LOSARTAN 50 MG TAB PO SCH (09:00)
[2016-05-27] MEDS: POLYETHYLENE GLYCOL 17 GM PKG PO SCH (09:00)
[2016-05-27] MEDS: MULTIVITAMINS/MINERALS THERAPEUTIC TAB PO SCH (09:00)
[2016-05-27] MEDS: MAGNESIUM HYDROXIDE SUSP 30 ML CUP PO SCH (09:00)
[2016-05-27] MEDS: DORZOLAMIDE 2% OPTH SOLN 200 DROP/10 ML BTLO EACH EYE SCH ×2 (09:00→21:38)
[2016-05-27] MEDS: glipiZIDE 10 MG TAB PO SCH (09:00)
[2016-05-27] MEDS: DOCUSATE SODIUM 100 MG CAP PO SCH ×2 (09:00→21:32)
[2016-05-27] MEDS: ASPIRIN 81 MG CHEW TAB PO SCH (09:00)
[2016-05-27] MEDS: AMIODARONE 200 MG TAB PO SCH ×2 (09:00→21:32)
[2016-05-27] MEDS: ATORVASTATIN 40 MG TAB PO SCH (09:00)
[2016-05-27] MEDS: FINASTERIDE 5 MG TAB PO SCH (09:00)
[2016-05-27] MEDS: CARVEDILOL 3.125 MG TAB PO SCH ×2 (09:00→21:32)
[2016-05-27] MEDS: SODIUM CHLORIDE 0.9% FLUSH 5 ML FLUSH IV FLUSH SCH ×2 (09:00→21:39)
[2016-05-27] MEDS ORDERED: FUROSEMIDE 40 MG/4 ML VIAL IV PUSH ONE (10:00)
--- NOTE | 2016-05-27 10:03 | RADRPT ---
EXAM DATE/TIME: 05/27/2016 09:45 [facility] COMPARISON: CHEST SINGLE AP, May 26, 2016, 4:00. INDICATIONS : Congestion MEDICAL HISTORY : Hypertension. Diabetes mellitus type II. SURGICAL HISTORY : CABG. ENCOUNTER: Subsequent ACUITY: 1 week PAIN SCORE: Non-responsive. LOCATION: Bilateral chest FINDINGS: Patient is status post median sternotomy. Left chest tube remains in place. No pneumothorax seen. The re is mild bibasilar atelectasis, slightly worse in the interim. A small left pleural effusion is see n, not significantly changed. Right internal jugular central venous catheter remains in place, tip in the right atrium. There is a mediastinal drain. CONCLUSION: 1. Slight worsening bibasilar atelectasis. Small left pleural effusion not significantly changed. 2. Mediastinal drain, left chest tube and right IJ line again noted. No pneumothorax seen. Maxi Fowler MD on May 27, 2016 at 10:00 Board Certified Radiologist. This report was verified electronically.
--- NOTE | 2016-05-27 10:14 | PD.CAR.PN ---
CVT Progress Note Subjective/Hospital Course: 05/25 SURGICAL PROCEDURE 1. Urgent Off-pump Coronary Artery Bypass Grafting x 2 with left internal mammary artery (RAGLAND) to left anterior descending (LAD), reverse saphenous vein graft to D1 2. Left Leg Endoscopic Vein [place] 3. Intraoperative Vein Mapping. 05/26 Doing well Extubated and tolerating Transfer CPCU Ambulate Baseline creatinine 1.3-1.5. Presently 1.45. Will continue to monitor 05/27 D/C CT Gentle diuresis Wean O2 Discharge planning Objective: Vital Signs Date Time Temp Pulse Resp B/P Pulse Ox O2 Delivery O2 Flow Rate FiO2 05/27/16 07:42 90 Nasal Cannula 4.00 05/27/16 07:30 94 Nasal Cannula 3.00 05/27/16 07:30 70 05/27/16 07:30 98.2 70 18 141/65 94 05/27/16 06:00 70 05/27/16 05:00 68 05/27/16 04:00 67 05/27/16 03:24 94 Nasal Cannula 3.00 05/27/16 03:23 66 16 141/66 94 05/27/16 03:00 65 05/27/16 02:00 64 05/27/16 01:00 72 05/27/16 00:00 84 05/26/16 23:39 93 Nasal Cannula 4.00 05/26/16 23:38 79 16 151/68 93 05/26/16 23:00 76 05/26/16 22:00 80 05/26/16 21:00 82 05/26/16 20:00 82 05/26/16 20:00 94 Nasal Cannula 4.00 05/26/16 20:00 99.2 79 18 172/79 94 05/26/16 19:44 93 Nasal Cannula 4.00 05/26/16 19:00 72 05/26/16 19:00 72 05/26/16 18:00 72 05/26/16 17:00 70 05/26/16 16:00 65 05/26/16 15:50 97.8 64 18 159/73 94 05/26/16 15:50 94 Nasal Cannula 4.00 05/26/16 15:50 64 05/26/16 15:50 64 05/26/16 15:00 69 05/26/16 14:00 73 05/26/16 13:00 73 05/26/16 12:00 71 05/26/16 11:50 97.7 70 20 115/57 94 05/26/16 11:50 70 05/26/16 11:50 94 Nasal Cannula 4.00 05/26/16 11:00 67 Labs: Laboratory Tests Test 05/27/16 05:10 White Blood Count 13.8 TH/MM3 (4.0-11.0) Red Blood Count 3.21 MIL/MM3 (4.50-5.90) Hemoglobin 9.8 GM/DL (13.0-17.0) Hematocrit 29.1 % (39.0-51.0) Mean Corpuscular Volume 90.7 FL (80.0-100.0) Mean Corpuscular Hemoglobin 30.5 PG (27.0-34.0) Mean Corpuscular Hemoglobin 33.6 % Concent (32.0-36.0) Red Cell Distribution Width 13.1 % (11.6-17.2) Platelet Count 129 TH/MM3 (150-450) Mean Platelet Volume 9.0 FL (7.0-11.0) Neutrophils (%) (Auto) 85.7 % (16.0-70.0) Lymphocytes (%) (Auto) 5.5 % (9.0-44.0) Monocytes (%) (Auto) 8.0 % (0.0-8.0) Eosinophils (%) (Auto) 0.5 % (0.0-4.0) Basophils (%) (Auto) 0.3 % (0.0-2.0) Neutrophils # (Auto) 11.8 TH/MM3 (1.8-7.7) Lymphocytes # (Auto) 0.8 TH/MM3 (1.0-4.8) Monocytes # (Auto) 1.1 TH/MM3 (0-0.9) Eosinophils # (Auto) 0.1 TH/MM3 (0-0.4) Basophils # (Auto) 0.0 TH/MM3 (0-0.2) CBC Comment DIFF FINAL Differential Comment Sodium Level 141 MEQ/L (136-145) Potassium Level 4.3 MEQ/L (3.5-5.1) Chloride Level 109 MEQ/L (98-107) Carbon Dioxide Level 22.8 MEQ/L (21.0-32.0) Anion Gap 9 MEQ/L (5-15) Blood Urea Nitrogen 22 MG/DL (7-18) Creatinine 1.67 MG/DL (0.60-1.30) Estimat Glomerular Filtration 48 ML/MIN (>89) Rate Random Glucose 171 MG/DL (74-106) Calcium Level 8.4 MG/DL (8.5-10.1) Magnesium Level 2.3 MG/DL (1.5-2.5) Result Diagram: 05/27/16 0510 05/27/16 0510 Elio Pérez MD May 27, 2016 10:14
--- NOTE | 2016-05-27 12:59 | HHI.PR ---
Subjective Interval History awake Alert and oriented x3 sitting in chair having lunch, no fever remains on 3-4L [place] chest tube discontinued earlier today pain controlled walking in room no family at bed side Vitals/Results Intake & Output 05/26/16 05/26/16 05/27/16 15:00 23:00 07:00 Intake Total 720 ml 300 ml Output Total 630 ml 230 ml Balance 90 ml 70 ml Intake Oral 720 ml 300 ml Output Urine Total 450 ml 150 ml Chest Tube Drainage Total 180 ml 80 ml # Voids 1 Vital Signs Vital Signs Date Time Temp Pulse Resp B/P Pulse Ox O2 Delivery O2 Flow Rate FiO2 05/27/16 07:42 90 Nasal Cannula 4.00 05/27/16 07:30 94 Nasal Cannula 3.00 05/27/16 07:30 70 05/27/16 07:30 98.2 70 18 141/65 94 05/27/16 06:00 70 05/27/16 05:00 68 05/27/16 04:00 67 05/27/16 03:24 94 Nasal Cannula 3.00 05/27/16 03:23 66 16 141/66 94 05/27/16 03:00 65 05/27/16 02:00 64 05/27/16 01:00 72 05/27/16 00:00 84 05/26/16 23:39 93 Nasal Cannula 4.00 05/26/16 23:38 79 16 151/68 93 05/26/16 23:00 76 05/26/16 22:00 80 05/26/16 21:00 82 05/26/16 20:00 82 05/26/16 20:00 94 Nasal Cannula 4.00 05/26/16 20:00 99.2 79 18 172/79 94 05/26/16 19:44 93 Nasal Cannula 4.00 05/26/16 19:00 72 05/26/16 19:00 72 05/26/16 18:00 72 05/26/16 17:00 70 05/26/16 16:00 65 05/26/16 15:50 97.8 64 18 159/73 94 05/26/16 15:50 94 Nasal Cannula 4.00 05/26/16 15:50 64 05/26/16 15:50 64 05/26/16 15:00 69 05/26/16 14:00 73 05/26/16 13:00 73 CBC/BMP: 05/27/16 0510 05/27/16 0510 Lab Results Laboratory Tests Test 05/27/16 05:10 White Blood Count 13.8 TH/MM3 Red Blood Count 3.21 MIL/MM3 Hemoglobin 9.8 GM/DL Hematocrit 29.1 % Mean Corpuscular Volume 90.7 FL Mean Corpuscular Hemoglobin 30.5 PG Mean Corpuscular Hemoglobin 33.6 % Concent Red Cell Distribution Width 13.1 % Platelet Count 129 TH/MM3 Mean Platelet Volume 9.0 FL Neutrophils (%) (Auto) 85.7 % Lymphocytes (%) (Auto) 5.5 % Monocytes (%) (Auto) 8.0 % Eosinophils (%) (Auto) 0.5 % Basophils (%) (Auto) 0.3 % Neutrophils # (Auto) 11.8 TH/MM3 Lymphocytes # (Auto) 0.8 TH/MM3 Monocytes # (Auto) 1.1 TH/MM3 Eosinophils # (Auto) 0.1 TH/MM3 Basophils # (Auto) 0.0 TH/MM3 CBC Comment DIFF FINAL Differential Comment Sodium Level 141 MEQ/L Potassium Level 4.3 MEQ/L Chloride Level 109 MEQ/L Carbon Dioxide Level 22.8 MEQ/L Anion Gap 9 MEQ/L Blood Urea Nitrogen 22 MG/DL Creatinine 1.67 MG/DL Estimat Glomerular Filtration 48 ML/MIN Rate Random Glucose 171 MG/DL Calcium Level 8.4 MG/DL Magnesium Level 2.3 MG/DL Physical Exam General General Appearance: Well Developed, Well Nourished, No Acute Distress, Comfortable Eyes Eye Exam: Pupils Equal, Pupils Reactive Ears & Nose Ears & Nose Exam: Nasal Mucosa [place] Throat Throat Exam: Oral Mucosa [place] & Moist Neck Neck Exam: Neck Supple, Trachea Midline Pulmonary Resp Exam: Clear Bilaterally, No Distress Cardiology CV Exam: Regular, Good Perfusion Chest/Breast Chest/Breast Remarks chest dressing Gastrointestinal/Abdomen GI Exam: Soft, Non-Tender, Bowel Sounds Present, Non-Distended Musculoskeletal MS Exam: Joints Intact Integumentary Skin Exam: Warm, Dry Extremeties Extremities Exam: Pedal Pulses Palpable, Trace Edema Neurologic Neuro Exam: Alert, Awake, Oriented, Speech Clear, Moving All Extremities, No Focal Deficits Psychiatric Psych Exam: Appropriate Responses VTE Prophylaxis VTE Prophylaxis Meds: Heparin Assessment/Plan Assessment/Plan ASSESSMENT 1. Chest pain, with abnormal stress test, multi vessel CAD on cardiac cath 2. s/p CABG x2 05/25/16 3. Chronic kidney disease. 4. Diabetes type 2, non-insulin dependent. 5. Gastroesophageal reflux disease. 6. Hypertension, uncontrolled 7. Cough, mild. 8. Elevated lipase Plan Appreciate card input Abnormal STT s/p cardiac cath with occluded RCA/ circumflex and severe disease in prox LAD Appreciater CTS input s/p CABG x2 POD 2 chest tube discontinued on ASA plavix Lipitor and Amio heart rate appears stable post op leucocytosis, improving no fever CXR with possible LLL consolidation repeat CXR in am elevated lipase, asymptomatic pancreas US okay Continue accuchecks with AC/HS diabetic diet Renal fx stable h/o CKD monitor renal function DVT prophylaxis PT eval D/W pt Faustina Sosa MD May 27, 2016 12:59
[2016-05-27] MEDS: PRAVASTATIN SOD 80 MG TAB PO SCH (21:32)
[2016-05-27] MEDS: SENNOSIDES 8.6 MG TAB PO SCH (21:33)
[2016-05-27] MEDS: LACTATED RINGER'S 1000 ML IV SCH (23:11)
[2016-05-28] VITALS (27 sets, daily range): BP systolic 123–151; BP diastolic 58–65; PULSE 56–79; RESP 16–22; TEMP 97.6–98.8; O2SAT 91–94
[2016-05-28] MEDS: hydrALAZINE HCL 25 MG TAB PO SCH ×4 (03:00→20:04)
[2016-05-28 05:02] LABS: BASOPHIL % 0.1 % (0.0-2.0); EOSINOPHIL # 0.1 TH/MM3 (0-0.4); EOSINOPHIL % 1.1 % (0.0-4.0); HEMATOCRIT 27.6 % (39.0-51.0); HEMO FLAGS DIFF FINAL; LYMPH % 6.6 % (9.0-44.0); LYMPHOCYTE # 0.9 TH/MM3 (1.0-4.8); MEAN CELL VOLUME 91.8 FL (80.0-100.0); MEAN CORPUSCULAR HEMOGLOBIN 30.4 PG (27.0-34.0); MEAN CORPUSCULAR HGB CONC 33.2 % (32.0-36.0); MONO % 7.3 % (0.0-8.0); NEUT % 84.9 % (16.0-70.0); PLATELET COUNT 123 TH/MM3 (150-450); WHITE BLOOD COUNT 12.9 TH/MM3 (4.0-11.0)
[2016-05-28 05:27] LABS: BICARBONATE 24.8 MEQ/L (21.0-32.0); POTASSIUM 4.4 MEQ/L (3.5-5.1)
[2016-05-28] MEDS: INSULIN ASPART SUPPLEMENTAL SCALE SQ SCH ×4 (06:04→21:57)
[2016-05-28] MEDS: PANTOPRAZOLE SOD 40 MG DELAYED RELEASE TAB PO SCH (06:31)
[2016-05-28] MEDS: RESP: ALBUTEROL 2.5 MG/IPRATROPIUM 0.5 MG NEB (SCH) NEB (07:16)
[2016-05-28] MEDS: ASPIRIN 81 MG CHEW TAB PO SCH (08:31)
[2016-05-28] MEDS: POLYETHYLENE GLYCOL 17 GM PKG PO SCH (08:31)
[2016-05-28] MEDS: AMIODARONE 200 MG TAB PO SCH ×2 (08:31→20:04)
[2016-05-28] MEDS: DOCUSATE SODIUM 100 MG CAP PO SCH ×2 (08:31→20:04)
[2016-05-28] MEDS: MAGNESIUM HYDROXIDE SUSP 30 ML CUP PO SCH (08:31)
[2016-05-28] MEDS: MULTIVITAMINS/MINERALS THERAPEUTIC TAB PO SCH (08:32)
[2016-05-28] MEDS: CARVEDILOL 3.125 MG TAB PO SCH ×2 (08:32→20:04)
[2016-05-28] MEDS: SODIUM CHLORIDE 0.9% FLUSH 5 ML FLUSH IV FLUSH SCH ×2 (08:32→20:48)
[2016-05-28] MEDS: CLOPIDOGREL 75 MG TAB PO SCH (08:32)
[2016-05-28] MEDS: ATORVASTATIN 40 MG TAB PO SCH (08:32)
[2016-05-28] MEDS: LOSARTAN 50 MG TAB PO SCH (08:32)
[2016-05-28] MEDS: DORZOLAMIDE 2% OPTH SOLN 200 DROP/10 ML BTLO EACH EYE SCH ×2 (08:33→20:03)
[2016-05-28] MEDS: FINASTERIDE 5 MG TAB PO SCH (08:35)
[2016-05-28] MEDS: glipiZIDE 10 MG TAB PO SCH (08:39)
--- NOTE | 2016-05-28 10:12 | RADRPT ---
EXAM DATE/TIME: 05/28/2016 09:36 [facility] COMPARISON: CHEST SINGLE AP, May 26, 2016, 4:00. INDICATIONS : Evaluate pneumonia. MEDICAL HISTORY : Hypertension. Diabetes mellitus type II. SURGICAL HISTORY : CABG. Prostatectomy. ENCOUNTER: Subsequent ACUITY: 1 week PAIN SCORE: 5/10 LOCATION: chest FINDINGS: A single view of the chest demonstrates cardiomegaly and previous CABG. Left basilar density. No pneu mothorax. Left-sided chest tube removed. Right jugular central line stable. The cardiomediastinal contours are unremarkable. Osseous structures are intact. CONCLUSION: 1. Cardiomegaly and previous CABG. 2. No pneumothorax. Brent Drake MD on May 28, 2016 at 10:09 Board Certified Radiologist. This report was verified electronically.
--- NOTE | 2016-05-28 11:56 | RSPPFT ---
DATE OF PROCEDURE: 05/24/16 COMMENTS: The forced vital capacity is moderately reduced. The FEV1 and FEF 25-75 are both moderately reduced. The FEV1/FVC ratio is reduced. IMPRESSION: This is compatible with moderate restrictive lung disease.
--- NOTE | 2016-05-28 16:26 | PD.CAR.PN ---
CVT Progress Note CVT: POD #: 3 Subjective/Hospital Course: 05/25 SURGICAL PROCEDURE 1. Urgent Off-pump Coronary Artery Bypass Grafting x 2 with left internal mammary artery (RAGLAND) to left anterior descending (LAD), reverse saphenous vein graft to D1 2. Left Leg Endoscopic Vein [place] 3. Intraoperative Vein Mapping. 05/26 Doing well Extubated and tolerating Transfer [facility]U Ambulate Baseline creatinine 1.3-1.5. Presently 1.45. Will continue to monitor 05/27 D/C CT Gentle diuresis Wean O2 Discharge planning 05/28 chest tube removed yesterday, on room air worsening renal indices, pt does live alone will eval for rehab/ discussed with daughter Objective: GENERAL: SKIN: Warm and dry.prevena dressing to chest , incision intact left leg HEAD: Normocephalic. EYES: No scleral icterus. No injection or drainage. NECK: Supple, trachea midline. No JVD or lymphadenopathy. CARDIOVASCULAR: Regular rate and rhythm without murmurs, gallops, or rubs. RESPIRATORY: Breath sounds equal bilaterally. No accessory muscle use. slightly diminished in bases GASTROINTESTINAL: Abdomen soft, non-tender, nondistended. MUSCULOSKELETAL: No cyanosis, or edema. BACK: Nontender without obvious deformity. No CVA tenderness. Vital Signs Date Time Temp Pulse Resp B/P Pulse Ox O2 Delivery O2 Flow Rate FiO2 05/28/16 12:00 66 05/28/16 11:04 64 05/28/16 11:00 93 Nasal Cannula 4.00 05/28/16 11:00 98.0 66 22 146/63 93 05/28/16 10:00 72 05/28/16 09:00 79 05/28/16 08:00 98.8 64 17 131/58 94 05/28/16 08:00 94 Nasal Cannula 3.00 05/28/16 08:00 63 05/28/16 07:16 91 Nasal Cannula 4.00 05/28/16 07:00 62 05/28/16 06:00 61 05/28/16 05:00 60 05/28/16 04:00 62 05/28/16 03:05 93 Nasal Cannula 3.00 05/28/16 03:03 65 16 123/59 93 05/28/16 03:00 65 05/28/16 02:00 74 05/28/16 01:00 63 05/28/16 00:00 64 05/27/16 23:32 94 Nasal Cannula 3.00 05/27/16 23:31 79 16 122/61 94 05/27/16 23:00 69 05/27/16 22:00 77 05/27/16 21:00 71 05/27/16 20:00 95 Nasal Cannula 3.00 05/27/16 20:00 84 05/27/16 20:00 98.9 80 18 129/58 95 05/27/16 19:45 94 Nasal Cannula 4.00 05/27/16 19:00 72 05/27/16 18:00 78 05/27/16 17:00 63 Labs: Laboratory Tests Test 05/28/16 04:49 White Blood Count 12.9 TH/MM3 (4.0-11.0) Red Blood Count 3.00 MIL/MM3 (4.50-5.90) Hemoglobin 9.1 GM/DL (13.0-17.0) Hematocrit 27.6 % (39.0-51.0) Mean Corpuscular Volume 91.8 FL (80.0-100.0) Mean Corpuscular Hemoglobin 30.4 PG (27.0-34.0) Mean Corpuscular Hemoglobin 33.2 % Concent (32.0-36.0) Red Cell Distribution Width 13.0 % (11.6-17.2) Platelet Count 123 TH/MM3 (150-450) Mean Platelet Volume 8.9 FL (7.0-11.0) Neutrophils (%) (Auto) 84.9 % (16.0-70.0) Lymphocytes (%) (Auto) 6.6 % (9.0-44.0) Monocytes (%) (Auto) 7.3 % (0.0-8.0) Eosinophils (%) (Auto) 1.1 % (0.0-4.0) Basophils (%) (Auto) 0.1 % (0.0-2.0) Neutrophils # (Auto) 11.0 TH/MM3 (1.8-7.7) Lymphocytes # (Auto) 0.9 TH/MM3 (1.0-4.8) Monocytes # (Auto) 0.9 TH/MM3 (0-0.9) Eosinophils # (Auto) 0.1 TH/MM3 (0-0.4) Basophils # (Auto) 0.0 TH/MM3 (0-0.2) CBC Comment DIFF FINAL Differential Comment Sodium Level 142 MEQ/L (136-145) Potassium Level 4.4 MEQ/L (3.5-5.1) Chloride Level 109 MEQ/L (98-107) Carbon Dioxide Level 24.8 MEQ/L (21.0-32.0) Anion Gap 8 MEQ/L (5-15) Blood Urea Nitrogen 31 MG/DL (7-18) Creatinine 1.87 MG/DL (0.60-1.30) Estimat Glomerular Filtration 42 ML/MIN (>89) Rate Random Glucose 131 MG/DL (74-106) Calcium Level 8.6 MG/DL (8.5-10.1) Result Diagram: 05/28/1644805/28/16448 Telemetry: NSR (1) CHF (congestive heart failure) Plan: EF 42 % gentle diuresis when tolerated no gerardo for now with elevated renal indices (2) S/P CABG x 2 Plan: statin, ASA, BB , plavix pulm toileting OOB ambulate CM to eval for rehab placement (3) CAD (coronary artery disease) (4) Hyperlipemia Plan: on statin, heart healthy (5) Hypertension Plan: controlled (6) Diabetes mellitus Plan: increase sliding scale coverage, add levemir hold metformin with GFR Problem Qualifiers (1) CHF (congestive heart failure): Qualified Code: I50.33 - Acute on chronic diastolic congestive heart failure Fay Erickson May 28, 2016 16:26
--- NOTE | 2016-05-28 16:29 | RADRPT ---
EXAM DATE/TIME: 05/28/2016 14:51 [facility] COMPARISON: No previous studies available for comparison. INDICATIONS : Increased BUN/creatinine. MEDICAL HISTORY : Congestive heart failure. Hypertension. Hypercholesterolemia. Glaucoma. Migraines. Bradycardia. CAD. Hyperlipidemia. Chest pain. Dyspnea. GERD. Chronic kidney disease. Diabetes. SURGICAL HISTORY : Tonsillectomy. Adenoidectomy. Bowel surgery. Prostate surgery. ENCOUNTER: Initial ACUITY: 1 day PAIN SCORE: 0/10 LOCATION: Bilateral flank MEASUREMENTS: RIGHT KIDNEY: 10.0 x 4.6 x 5.9 cm LEFT KIDNEY: 11.2 x 5.0 x 4.9 cm FINDINGS: Kidneys are echogenic. No hydronephrosis. Simple cyst left kidney measures 23 x 20 x 24 mm. Hypoechoi c lesion in the bladder measures 19 x 10 x 6 mm. Prominent prostate measures 37 x 44 x 40 mm. Bilater al pleural effusion seen. CONCLUSION: 1. Echogenic kidneys consistent with medical renal disease. 2. Hypoechoic lesion in the bladder measures 1.[address] urogram with delayed imaging of the bladder r ecommended to exclude underlying mass. 3. Prominent prostate. 4. Left renal cyst. Brent Drake MD on May 28, 2016 at 16:24 Board Certified Radiologist. This report was verified electronically.
[2016-05-28] MEDS: SODIUM CHLOR 0.9% 1000 ML INJ 1,000 ML IV SCH (17:00)
[2016-05-28 19:49] LABS: BLOOD, URINE NEG (NEG); COMMENT (UR) CULT NOT INDICATED; CULTURE IF INDICATED CULT NOT INDICATED; GLUCOSE,URINE NEG (NEG); HYALINE CAST, URINE 1 /lpf (RARE); KETONE, URINE NEG (NEG); MUCUS URINE FEW /lpf (OCC); NITRITE,URINE NEG (NEG); SQUAMOUS EPITHELIAL CELL URINE <1 /hpf (0-5); URINE COLOR YELLOW (YELLW/STRAW)
[2016-05-28] MEDS: INSULIN DETEMIR 100 UNITS/ML VIAL SQ SCH (20:08)
[2016-05-28] MEDS: SENNOSIDES 8.6 MG TAB PO SCH (20:08)
--- NOTE | 2016-05-28 21:43 | MB ---
cc: ROSANNA DUENAS MD DATE OF CONSULTATION 05/28/2016 REASON FOR CONSULTATION Chronic kidney disease with elevated BUN and creatinine. HISTORY OF PRESENT ILLNESS This is an 80-year-old male with past medical history of hypertension, ischemic heart disease post coronary artery bypass grafting, chronic kidney disease, gastroesophageal reflux disease, diabetes mellitus, came to the hospital with the complaint of chest pain. I was called to see the patient because of elevated BUN and creatinine. The patient has creatinine of 1.4-1.5 on admission which stayed almost same until yesterday when it went up to 1.6 and today it is 1.8. The patient was admitted here and was diagnosed with cardiac ischemia and he underwent cardiac catheterization after the abnormal nuclear stress test. This shows that he has mild left ventricular impairment with occluded RCA and circumflex with moderate to severe disease of proximal LAD. He was seen by cardiothoracic surgery and underwent coronary artery bypass grafting which was done on Saturday, May 25. He had coronary artery bypass grafting x2 with left internal mammary artery, internal mammary artery grafting. The patient tolerated the procedure well. He is currently on nasal cannula. His blood pressure has been stable. There is no documented hypotensive episode. He has been nonoliguric. His chest x-ray was showing some congestion and he received one dose of Lasix yesterday morning. His breathing is better. Denies any nausea or vomiting. He had a bowel movement already and has some shortness of breath when lying flat. He has history of acute kidney injury in the past and his creatinine was as high as 6.3 in November of 2010, and he was seen by Dr. Loomis at that time but he has not been following with any picture framer recently. PAST MEDICAL HISTORY 1. Hypertension. 2. Ischemic heart disease. 3. Diabetes mellitus. 4. Chronic kidney disease. 5. Gastroesophageal reflux disease. 6. Hyperlipidemia. PAST SURGICAL HISTORY 1. Cholecystectomy. 2. Tonsillectomy. 3. Bowel surgery. 4. Prostate surgery. 5. Underwent cardiac catheterization and has coronary artery bypass grafting done on May 25. REVIEW OF SYSTEMS The patient denies any headache, dizziness or blurring of vision. He has mild shortness of breath. He is with nasal cannula. No chest pain. No nausea or vomiting. No abdominal pain. He had a bowel movement after the surgery. SOCIAL HISTORY He has past history of smoking. He stopped a long time ago. He lives alone. There is no history of heavy alcoholism. FAMILY HISTORY Positive for hypertension. ALLERGIES NO KNOWN DRUG ALLERGIES. MEDICATIONS Currently he is on: 1. Ringer's lactate 30 ml q.24h. 2. Cephazolin with just one dose was given foundation director. 3. Norvasc 10 mg once a day. 4. Proscar 5 milligrams daily. 5. Glipizide 10 mg daily. 6. Cozaar 100 mg once a day. 7. Aspirin 81 mg daily. 8. Plavix 75 mg daily. 9. Lipitor 40 mg once a day. 10. MiraLax 17 grams once a day. 11. Protonix 40 milligrams once a day. 12. Senokot 8.6 milligrams q.h.s. 13. Carvedilol 3.125 milligrams q.12h. 14. Cordarone 200 milligrams q.12h. 15. Hydralazine 25 milligrams q.6h. 16. Insulin aspart sliding scale. PHYSICAL EXAMINATION GENERAL: The patient is awake and alert. He is not in acute distress. VITAL SIGNS: His last blood pressure is 146/63, temperature is 98, oxygen saturation on 4 liters nasal cannula is 93%. HEENT: Pupils equally reactive to light. Nonicteric sclerae. Conjunctivae pale. NECK: Supple. JVD is not elevated. LUNGS: The patient has bilateral decreased air entry with a few rhonchi. HEART: S1-S2. Regular rhythm. ABDOMEN: Distended. Soft. Lax. There is no tenderness. Bowel sounds positive. EXTREMITIES: He has no pedal edema. LABORATORY DATA Investigation, white blood cell count is 12.9 with a hemoglobin of 9.1, platelet count of 123. Sodium 142, potassium 3.4, chloride 110, bicarbonate 24.4, BUN 14, creatinine 1.54. Troponin 0.07. Urinalysis showing protein of 30. IMAGING A chest x-ray was done today and shows cardiomegaly, no pneumothorax. Left basilar density. No consolidation. Ultrasound of the kidneys was done but the results are not available yet. ASSESSMENT/PLAN 1. Chronic kidney disease with some acute worsening. 2. Status post coronary artery bypass grafting. 3. Hypertension. 4. Anemia. 5. Gastroesophageal reflux disease. 6. The patient has chronic kidney disease with minimal proteinuria. Most likely he has underlying hypertensive or renal vascular disease. The patient has started eating. He was given one dose of Lasix yesterday. The acute worsening could be either prerenal or possibility of acute tubular necrosis. I will check the urine sodium and osmolality and give him some gentle hydration. Watch for any fluid overload status. Follow the urine output and BUN and creatinine. Thank you for the consultation. I will follow the patient while he is in the hospital. MD ISIDRO Arnold/LA /4:17 PM /8:45 PM
[2016-05-29] VITALS (29 sets, daily range): BP systolic 124–170; BP diastolic 58–74; PULSE 55–72; RESP 18–22; TEMP 97.6–99.1; O2SAT 91–94
[2016-05-29] MEDS: hydrALAZINE HCL 25 MG TAB PO SCH ×4 (04:16→21:30)
[2016-05-29] MEDS: PANTOPRAZOLE SOD 40 MG DELAYED RELEASE TAB PO SCH (06:18)
[2016-05-29] MEDS: INSULIN ASPART SUPPLEMENTAL SCALE SQ SCH ×4 (06:22→21:00)
[2016-05-29 06:29] LABS: AUTOMATED NEUTROPHIL # 9.8 TH/MM3 (1.8-7.7); BASOPHIL % 0.2 % (0.0-2.0); EOSINOPHIL # 0.3 TH/MM3 (0-0.4); EOSINOPHIL % 2.7 % (0.0-4.0); HEMATOCRIT 28.6 % (39.0-51.0); HEMO FLAGS DIFF FINAL; LYMPH % 8.9 % (9.0-44.0); LYMPHOCYTE # 1.1 TH/MM3 (1.0-4.8); MEAN CELL VOLUME 91.7 FL (80.0-100.0); MEAN CORPUSCULAR HEMOGLOBIN 29.7 PG (27.0-34.0); MEAN CORPUSCULAR HGB CONC 32.4 % (32.0-36.0); MONO % 7.1 % (0.0-8.0); NEUT % 81.1 % (16.0-70.0); PLATELET COUNT 146 TH/MM3 (150-450); RED BLOOD COUNT 3.12 MIL/MM3 (4.50-5.90); RED CELL DISTRIBUTION WIDTH 12.9 % (11.6-17.2)
[2016-05-29 06:47] LABS: BICARBONATE 24.2 MEQ/L (21.0-32.0); POTASSIUM 4.1 MEQ/L (3.5-5.1)
[2016-05-29] MEDS: glipiZIDE 10 MG TAB PO SCH (09:08)
[2016-05-29] MEDS: FINASTERIDE 5 MG TAB PO SCH (09:08)
[2016-05-29] MEDS: POLYETHYLENE GLYCOL 17 GM PKG PO SCH (09:08)
[2016-05-29] MEDS: MAGNESIUM HYDROXIDE SUSP 30 ML CUP PO SCH (09:08)
[2016-05-29] MEDS: DORZOLAMIDE 2% OPTH SOLN 200 DROP/10 ML BTLO EACH EYE SCH ×2 (09:09→21:29)
[2016-05-29] MEDS: CLOPIDOGREL 75 MG TAB PO SCH (09:09)
[2016-05-29] MEDS: ASPIRIN 81 MG CHEW TAB PO SCH (09:09)
[2016-05-29] MEDS: DOCUSATE SODIUM 100 MG CAP PO SCH ×2 (09:09→21:30)
[2016-05-29] MEDS: LOSARTAN 50 MG TAB PO SCH (09:09)
[2016-05-29] MEDS: CARVEDILOL 3.125 MG TAB PO SCH ×2 (09:09→21:30)
[2016-05-29] MEDS: AMIODARONE 200 MG TAB PO SCH ×2 (09:09→21:30)
[2016-05-29] MEDS: SODIUM CHLORIDE 0.9% FLUSH 5 ML FLUSH IV FLUSH SCH (09:09)
[2016-05-29] MEDS: MULTIVITAMINS/MINERALS THERAPEUTIC TAB PO SCH (09:10)
[2016-05-29] MEDS: ATORVASTATIN 40 MG TAB PO SCH (09:10)
[2016-05-29] MEDS: INSULIN DETEMIR 100 UNITS/ML VIAL SQ SCH ×2 (09:10→21:31)
--- NOTE | 2016-05-29 10:09 | HHI.NPPN ---
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 I was called to see the patient because of elevated BUN and creatinine. The patient has creatinine of 1.4-1.5 on admission. Additional Remarks Patient is alert, sitting on chair and eating breakfast, no SOB, with nasal cannula. Review of Systems Cardiovascular Cardiac: Chest Pain, THOMAS Objective Data Data 05/28/16 05/29/16 19:00 07:00 Intake Total 480 ml 633 ml Output Total 400 ml Balance 480 ml 233 ml Intake Oral 480 ml 480 ml IV Total 153 ml Output Urine Total 400 ml # Voids 3 # Bowel Movements 2 Vital Signs Date Time Temp Pulse Resp B/P Pulse Ox O2 Delivery O2 Flow Rate FiO2 05/29/16 08:22 93 High Flow Nasal Cannula 3.00 05/29/16 06:00 57 05/29/16 05:00 59 05/29/16 04:00 60 05/29/16 04:00 99.0 55 20 139/63 91 05/29/16 04:00 93 Nasal Cannula 4.00 05/29/16 03:00 60 05/29/16 02:00 55 05/29/16 01:00 62 05/29/16 00:00 93 Nasal Cannula 4.00 05/29/16 00:00 99.1 57 20 129/60 91 05/29/16 00:00 64 05/28/16 23:00 68 05/28/16 22:00 63 05/28/16 21:00 66 05/28/16 20:00 98.0 76 22 129/58 93 05/28/16 20:00 93 Nasal Cannula 4.00 05/28/16 20:00 77 05/28/16 19:35 93 Nasal Cannula 4.00 05/28/16 18:14 71 05/28/16 17:00 64 05/28/16 16:00 56 05/28/16 15:00 62 05/28/16 15:00 97.6 61 22 151/65 91 05/28/16 15:00 91 Nasal Cannula 4.00 05/28/16 14:00 65 05/28/16 13:00 70 05/28/16 12:00 66 05/28/16 11:04 64 05/28/16 11:00 93 Nasal Cannula 4.00 05/28/16 11:00 98.0 66 22 146/63 93 -: 05/29/16 0545 05/29/16 0545 Physical Exam General Appearance: No Acute Distress, Comfortable Eyes Eye Exam: Pupils Equal Ears & Nose Ears & Nose Exam: Nasal Mucosa [place] Throat Throat Exam: Oral Mucosa [place] & Moist Neck Neck Exam: Neck Supple, Trachea Midline Pulmonary Resp Exam: Breath Sounds Equal, No Distress, Rhonchi, Decreased Bases Cardiology CV Exam: Regular, Good Perfusion Gastrointestinal/Abdomen GI Exam: Soft, Non-Tender, Bowel Sounds Present, Non-Distended Musculoskeletal MS Exam: Joints Intact Integumentary Skin Exam: Warm, Dry Extremeties Extremities Exam: Trace Edema Neurologic Neuro Exam: Alert, Awake, Oriented Psychiatric Psych Exam: Appropriate Responses Assessment/Plan Assessment Summary: NATALIE/Acute Renal Failure, Hypertension, CKD Stage III Problem List: (1) Elevated troponin (2) Chest pain in adult (3) Diabetes mellitus (4) CAD (coronary artery disease) (5) CHF (congestive heart failure) (6) Hyperlipemia (7) Hypertension (8) Stage 3 chronic kidney disease (9) Acute kidney injury (10) S/P CABG x 2 Plan Patient has been non oliguric. Creatinine still increasing. Renal U/S noted, has possible bladder mass, cannot do CT with contrast, will consult Urology. Urine Na. was low and osmolality elevated. possible has an element of pre renal and ATN. Continue gentle Hydration. Avoid Nephrotoxins. Problem Qualifiers (1) CHF (congestive heart failure): Qualified Code: I50.33 - Acute on chronic diastolic congestive heart failure Bel Méndez MD May 29, 2016 10:09
--- NOTE | 2016-05-29 10:46 | PD.CAR.PN ---
CVT Progress Note CVT: POD #: 4 Subjective/Hospital Course: 05/25 SURGICAL PROCEDURE 1. Urgent Off-pump Coronary Artery Bypass Grafting x 2 with left internal mammary artery (RAGLAND) to left anterior descending (LAD), reverse saphenous vein graft to D1 2. Left Leg Endoscopic Vein [place] 3. Intraoperative Vein Mapping. 05/26 Doing well Extubated and tolerating Transfer CPCU Ambulate Baseline creatinine 1.3-1.5. Presently 1.45. Will continue to monitor 05/27 D/C CT Gentle diuresis Wean O2 Discharge planning 05/28 chest tube removed yesterday, on room air worsening renal indices, pt does live alone will eval for rehab/ discussed with daughter 05/29 on 3 liter nasal cannula worsening renal indices, on low rate IV fluids per Renal re-eval in am stable for transfer to rehab from [facility] standpoint leave prevena dressing in place until 06/01/16 Objective: Vital Signs Date Time Temp Pulse Resp B/P Pulse Ox O2 Delivery O2 Flow Rate FiO2 05/29/16 08:22 93 High Flow Nasal Cannula 3.00 05/29/16 06:00 57 05/29/16 05:00 59 05/29/16 04:00 60 05/29/16 04:00 99.0 55 20 139/63 91 05/29/16 04:00 93 Nasal Cannula 4.00 05/29/16 03:00 60 05/29/16 02:00 55 05/29/16 01:00 62 05/29/16 00:00 93 Nasal Cannula 4.00 05/29/16 00:00 99.1 57 20 129/60 91 05/29/16 00:00 64 05/28/16 23:00 68 05/28/16 22:00 63 05/28/16 21:00 66 05/28/16 20:00 98.0 76 22 129/58 93 05/28/16 20:00 93 Nasal Cannula 4.00 05/28/16 20:00 77 05/28/16 19:35 93 Nasal Cannula 4.00 05/28/16 18:14 71 05/28/16 17:00 64 05/28/16 16:00 56 05/28/16 15:00 62 05/28/16 15:00 97.6 61 22 151/65 91 05/28/16 15:00 91 Nasal Cannula 4.00 05/28/16 14:00 65 05/28/16 13:00 70 05/28/16 12:00 66 05/28/16 11:04 64 05/28/16 11:00 93 Nasal Cannula 4.00 05/28/16 11:00 98.0 66 22 146/63 93 Labs: Laboratory Tests Test 05/29/16 05:45 White Blood Count 12.0 TH/MM3 (4.0-11.0) Red Blood Count 3.12 MIL/MM3 (4.50-5.90) Hemoglobin 9.3 GM/DL (13.0-17.0) Hematocrit 28.6 % (39.0-51.0) Mean Corpuscular Volume 91.7 FL (80.0-100.0) Mean Corpuscular Hemoglobin 29.7 PG (27.0-34.0) Mean Corpuscular Hemoglobin 32.4 % Concent (32.0-36.0) Red Cell Distribution Width 12.9 % (11.6-17.2) Platelet Count 146 TH/MM3 (150-450) Mean Platelet Volume 9.9 FL (7.0-11.0) Neutrophils (%) (Auto) 81.1 % (16.0-70.0) Lymphocytes (%) (Auto) 8.9 % (9.0-44.0) Monocytes (%) (Auto) 7.1 % (0.0-8.0) Eosinophils (%) (Auto) 2.7 % (0.0-4.0) Basophils (%) (Auto) 0.2 % (0.0-2.0) Neutrophils # (Auto) 9.8 TH/MM3 (1.8-7.7) Lymphocytes # (Auto) 1.1 TH/MM3 (1.0-4.8) Monocytes # (Auto) 0.9 TH/MM3 (0-0.9) Eosinophils # (Auto) 0.3 TH/MM3 (0-0.4) Basophils # (Auto) 0.0 TH/MM3 (0-0.2) CBC Comment DIFF FINAL Differential Comment Sodium Level 138 MEQ/L (136-145) Potassium Level 4.1 MEQ/L (3.5-5.1) Chloride Level 107 MEQ/L (98-107) Carbon Dioxide Level 24.2 MEQ/L (21.0-32.0) Anion Gap 7 MEQ/L (5-15) Blood Urea Nitrogen 35 MG/DL (7-18) Creatinine 2.04 MG/DL (0.60-1.30) Estimat Glomerular Filtration 38 ML/MIN (>89) Rate Random Glucose 125 MG/DL (74-106) Calcium Level 8.4 MG/DL (8.5-10.1) Result Diagram: 05/29/1654405/29/16544 Telemetry: NSR (1) CHF (congestive heart failure) Plan: EF 42 % no gerardo for now with elevated renal indices (2) S/P CABG x 2 Plan: statin, ASA, BB , plavix pulm toileting OOB ambulate CM to eval for rehab placement wean 02 as tolerated (3) CAD (coronary artery disease) (4) Hyperlipemia Plan: on statin, heart healthy (5) Hypertension Plan: controlled (6) Diabetes mellitus Plan: increase sliding scale coverage, add levemir hold metformin with GFR blood sugar improving (7) Acute kidney injury Plan: renal following, avoid neprho toxic meds Problem Qualifiers (1) CHF (congestive heart failure): Qualified Code: I50.33 - Acute on chronic diastolic congestive heart failure Fay Erickson May 29, 2016 10:46
--- NOTE | 2016-05-29 10:51 | HHI.PR ---
Subjective Interval History awake alert and oriented sitting in chair appears comfortable remains on 3L NC denies chest pain, shortness of breath no family at bedside Vitals/Results Intake & Output 05/28/16 05/28/16 05/29/16 15:00 23:00 07:00 Intake Total 480 ml 633 ml Output Total 400 ml Balance 480 ml 233 ml Intake Oral 480 ml 480 ml IV Total 153 ml Output Urine Total 400 ml # Voids 3 # Bowel Movements 2 Vital Signs Vital Signs Date Time Temp Pulse Resp B/P Pulse Ox O2 Delivery O2 Flow Rate FiO2 05/29/16 08:22 93 High Flow Nasal Cannula 3.00 05/29/16 06:00 57 05/29/16 05:00 59 05/29/16 04:00 60 05/29/16 04:00 99.0 55 20 139/63 91 05/29/16 04:00 93 Nasal Cannula 4.00 05/29/16 03:00 60 05/29/16 02:00 55 05/29/16 01:00 62 05/29/16 00:00 93 Nasal Cannula 4.00 05/29/16 00:00 99.1 57 20 129/60 91 05/29/16 00:00 64 05/28/16 23:00 68 05/28/16 22:00 63 05/28/16 21:00 66 05/28/16 20:00 98.0 76 22 129/58 93 05/28/16 20:00 93 Nasal Cannula 4.00 05/28/16 20:00 77 05/28/16 19:35 93 Nasal Cannula 4.00 05/28/16 18:14 71 05/28/16 17:00 64 05/28/16 16:00 56 05/28/16 15:00 62 05/28/16 15:00 97.6 61 22 151/65 91 05/28/16 15:00 91 Nasal Cannula 4.00 05/28/16 14:00 65 05/28/16 13:00 70 05/28/16 12:00 66 05/28/16 11:04 64 05/28/16 11:00 93 Nasal Cannula 4.00 05/28/16 11:00 98.0 66 22 146/63 93 CBC/BMP: 05/29/16 0545 05/29/16 0545 Lab Results Laboratory Tests Test 05/28/16 05/29/16 18:45 05:45 Urine Color YELLOW Urine Turbidity CLEAR Urine pH 5.0 Urine Specific [place] 1.019 Urine Protein 30 mg/dL Urine Glucose (UA) NEG mg/dL Urine Ketones NEG mg/dL Urine Occult Blood NEG Urine Nitrite NEG Urine Bilirubin NEG Urine Urobilinogen LESS THAN 2.0 MG/DL Urine Leukocyte Esterase NEG Urine RBC 1 /hpf Urine WBC 3 /hpf Urine Squamous Epithelial <1 /hpf Cells Urine Hyaline Casts 1 /lpf Urine Mucus FEW /lpf Microscopic Urinalysis Comment CULT NOT INDICATED Urine Osmolality 564 MOSM/KG Urine Random Sodium 8 MEQ/L White Blood Count 12.0 TH/MM3 Red Blood Count 3.12 MIL/MM3 Hemoglobin 9.3 GM/DL Hematocrit 28.6 % Mean Corpuscular Volume 91.7 FL Mean Corpuscular Hemoglobin 29.7 PG Mean Corpuscular Hemoglobin 32.4 % Concent Red Cell Distribution Width 12.9 % Platelet Count 146 TH/MM3 Mean Platelet Volume 9.9 FL Neutrophils (%) (Auto) 81.1 % Lymphocytes (%) (Auto) 8.9 % Monocytes (%) (Auto) 7.1 % Eosinophils (%) (Auto) 2.7 % Basophils (%) (Auto) 0.2 % Neutrophils # (Auto) 9.8 TH/MM3 Lymphocytes # (Auto) 1.1 TH/MM3 Monocytes # (Auto) 0.9 TH/MM3 Eosinophils # (Auto) 0.3 TH/MM3 Basophils # (Auto) 0.0 TH/MM3 CBC Comment DIFF FINAL Differential Comment Sodium Level 138 MEQ/L Potassium Level 4.1 MEQ/L Chloride Level 107 MEQ/L Carbon Dioxide Level 24.2 MEQ/L Anion Gap 7 MEQ/L Blood Urea Nitrogen 35 MG/DL Creatinine 2.04 MG/DL Estimat Glomerular Filtration 38 ML/MIN Rate Random Glucose 125 MG/DL Calcium Level 8.4 MG/DL Physical Exam General General Appearance: No Acute Distress, Comfortable Eyes Eye Exam: Pupils Equal Ears & Nose Ears & Nose Exam: Nasal Mucosa [place] Throat Throat Exam: Oral Mucosa [place] & Moist Neck Neck Exam: Neck Supple, Trachea Midline Pulmonary Resp Exam: Breath Sounds Equal, No Distress, Rhonchi, Decreased Bases Cardiology CV Exam: Regular, Good Perfusion Chest/Breast Chest/Breast Remarks chest dressing Gastrointestinal/Abdomen GI Exam: Soft, Non-Tender, Bowel Sounds Present, Non-Distended Musculoskeletal MS Exam: Joints Intact Integumentary Skin Exam: Warm, Dry Extremeties Extremities Exam: Trace Edema Neurologic Neuro Exam: Alert, Awake, Oriented Psychiatric Psych Exam: Appropriate Responses VTE Prophylaxis VTE Prophylaxis Meds: Heparin Assessment/Plan Assessment/Plan ASSESSMENT 1. Chest pain, with abnormal stress test, multi vessel CAD on cardiac cath 2. s/p CABG x2 05/25/16 3. Chronic kidney disease. 4. Diabetes type 2, non-insulin dependent. 5. Gastroesophageal reflux disease. 6. Hypertension, uncontrolled 7. Cough, mild. 8. Elevated lipase Plan Appreciate card input Abnormal STT s/p cardiac cath with occluded RCA/ circumflex and severe disease in prox LAD Appreciater CTS input s/p CABG x2 POD 4 chest tube discontinued on ASA plavix Lipitor and [place] heart rate appears stable post op leucocytosis, improving no fever CXR with possible LLL consolidation repeat CXR elevated lipase, asymptomatic pancreas US okay Continue accuchecks with AC/HS diabetic diet NATALIE on h/o CKD , worsening creatinine Appreciate Nephrology input on gentle i/v fluids renal US bladder mass, Urology consulted strict i & Os recheck in am DVT prophylaxis PT eval D/W pt no family at bed side discussed with nursing staff Faustina Sosa MD May 29, 2016 10:51
--- NOTE | 2016-05-29 11:30 | RADRPT ---
EXAM DATE/TIME: 05/29/2016 11:05 [facility] COMPARISON: Prior study 05/28/16, use for comparison. INDICATIONS: Congestion. MEDICAL HISTORY: None. SURGICAL HISTORY: CABG. ENCOUNTER: Initial ACUITY: 1 week PAIN SCORE: 0/10 LOCATION: Bilateral chest FINDINGS: A single view of the chest demonstrates the heart remains enlarged. There are numerous intact sterna l wires. Small right pleural effusion. Central line has been removed. There is no evidence of pneu mothorax. CONCLUSION: Heart is enlarged. Small right pleural effusion. Kael Vargas MD on May 29, 2016 at 11:24 Board Certified Radiologist. This report was verified electronically.
--- NOTE | 2016-05-29 14:32 | MB ---
cc: EVERARDO BUCKNER MD DATE OF CONSULTATION: 05/29/2016 REASON FOR CONSULTATION: 1. Possible bladder mass. 2. History of benign prostatic hypertrophy status post TURP times eight years ago. HISTORY OF PRESENT ILLNESS: The patient is a very pleasant 80-year-old Afro-[place] male with history of BPH status post TURP who was admitted back on May 23, 2016 after developing chest pain. He underwent a underwent a coronary artery bypass graft on May 23, 2016. Postoperatively he has been doing well, however, his creatinine has steadily been rising, up to 2.04. Nephrology was consulted who ordered a renal ultrasound which he was found to have possible 1.9 cm bladder mass, possible mass in his bladder as well as a simple left renal cyst. Urology was consulted for these findings. The patient was doing well. He denies any history of hematuria he has smoked in the past. He denies any urinary issues since he has had his TURP years ago. He has good stream feels like he empties his bladder. Denies incontinence, dysuria, urgency, frequency or incomplete emptying. He denies history of kidney stones or family history of prostate cancer. PAST HISTORY 1. Significant for diabetes. 2. Hyperlipidemia. 3. Coronary artery disease. 4. Myocardial infarction 5. Hypertension Gastroesophageal reflux disease. SOCIAL HISTORY: 1. Status post transurethral resection of the prostate. 2. Cholecystectomy. 3. Tonsillectomy and adenoidectomy 4. Coronary artery bypass graft. ALLERGIES NO KNOWN DRUG ALLERGIES MEDICATIONS Home medications include 1. Amlodipine. 2. Metformin 3. Simvastatin 4. Losartan 5. Glipizide SOCIAL HISTORY Has a history of tobacco use, denies illicit drugs or any alcohol use. He lives alone in his own home, his daughter lives in [facility]. FAMILY HISTORY Denies genitourinary malignancies or urolithiasis. REVIEW OF SYSTEMS See history of present illness, otherwise 12-point review of systems done and was negative. PHYSICAL EXAMINATION VITAL SIGNS: Temperature 99, pulse 57, blood pressure 139/66. Sating 93% on 3 liters nasal cannula. IN GENERAL: He is alert, oriented times three. No apparent disease. Pleasant, cooperative and appears stated age. HEAD, EYES, EARS, NOSE, AND THROAT: Head is normocephalic, atraumatic. NECK: The neck is supple. Trachea is midline. Eyes: No scleral icterus. Extraocular muscles intact. LUNGS: Clear to auscultation bilaterally. No wheezes or rales. CARDIOVASCULAR SYSTEM: Regular rate rhythm. No murmurs, gallops or rubs. ABDOMEN: Soft, nontender and nondistended. Positive bowel sounds. GENITOURINARY: His penis is uncircumcised. His foreskin is easily retractable. Both testes are descended without mass. RECTUM: Rectal exam not indicated at this time. EXTREMITIES: Nontender with 2+ edema. SKIN: No ulcers or rashes. PSYCHIATRIC: Normal affect. LABS: The labs show a white count of 12.0, hemoglobin 9.3, hematocrit 28.6, platelet count 146. The sodium 130, potassium 4.1, chloride 107, bicarb 24.2, BUN 35, creatinine 2.04, glucose 125. His urine is negative. IMAGING STUDIES Renal ultrasound images reviewed radiologist support possible 1.9-cm mass within his bladder with a left simple renal cyst. ASSESSMENT The patient is a 80-year-old -[place] male history of BPH status post TURP with acute renal failure was found have incidental 1.9 cm bladder mass well as a simple left renal cyst. PLAN Recommend the patient undergo a cystoscopy to fully evaluate the bladder. But this could be done on an outpatient basis once his acute issues resolve. I did not see any evidence of obstructive uropathy as the source of his renal failure. Ideally if the bladder mass is to be found. He would then need to undergo a TURBT which possibly could be done all at once. However, he would need to be off anticoagulation including Plavix for 7 days minimum prior to the procedure, sure this is possible his recent open heart surgery. He would need cardiac clearance at this time, otherwise he will follow up as an outpatient for cystoscopy. Please call with any questions. MD JENNY Tai/valerie /1:36 PM /1:49 PM
[2016-05-29] MEDS: SODIUM CHLOR 0.9% 1000 ML INJ 1,000 ML IV SCH (16:49)
[2016-05-29] MEDS: SENNOSIDES 8.6 MG TAB PO SCH (21:30)
[2016-05-30] VITALS (24 sets, daily range): BP systolic 128–172; BP diastolic 62–77; PULSE 51–69; RESP 20–22; TEMP 97.2–99; O2SAT 91–95
[2016-05-30] MEDS: hydrALAZINE HCL 25 MG TAB PO SCH ×4 (04:40→20:37)
[2016-05-30 06:24] LABS: BASOPHIL % 0.4 % (0.0-2.0); EOSINOPHIL # 0.5 TH/MM3 (0-0.4); EOSINOPHIL % 4.1 % (0.0-4.0); HEMATOCRIT 30.4 % (39.0-51.0); HEMO FLAGS DIFF FINAL; LYMPH % 8.8 % (9.0-44.0); MEAN CELL VOLUME 91.7 FL (80.0-100.0); MEAN CORPUSCULAR HEMOGLOBIN 29.9 PG (27.0-34.0); MEAN CORPUSCULAR HGB CONC 32.6 % (32.0-36.0); MONO % 6.7 % (0.0-8.0); PLATELET COUNT 185 TH/MM3 (150-450); RED BLOOD COUNT 3.32 MIL/MM3 (4.50-5.90); RED CELL DISTRIBUTION WIDTH 12.8 % (11.6-17.2); WHITE BLOOD COUNT 11.3 TH/MM3 (4.0-11.0)
[2016-05-30] MEDS: PANTOPRAZOLE SOD 40 MG DELAYED RELEASE TAB PO SCH (06:30)
[2016-05-30] MEDS: INSULIN ASPART SUPPLEMENTAL SCALE SQ SCH ×4 (06:43→21:00)
[2016-05-30 07:08] LABS: BICARBONATE 24.3 MEQ/L (21.0-32.0); POTASSIUM 4.1 MEQ/L (3.5-5.1)
--- NOTE | 2016-05-30 09:36 | PD.CAR.PN ---
CVT Progress Note CVT: POD #: 5 Subjective/Hospital Course: 05/25 SURGICAL PROCEDURE 1. Urgent Off-pump Coronary Artery Bypass Grafting x 2 with left internal mammary artery (RAGLAND) to left anterior descending (LAD), reverse saphenous vein graft to D1 2. Left Leg Endoscopic Vein Mer[place] 3. Intraoperative Vein Mapping. 05/26 Doing well Extubated and tolerating Transfer [facility]U Ambulate Baseline creatinine 1.3-1.5. Presently 1.45. Will continue to monitor 05/27 D/C CT Gentle diuresis Wean O2 Discharge planning 05/28 chest tube removed yesterday, on room air worsening renal indices, pt does live alone will eval for rehab/ discussed with daughter 05/29 on 3 liter nasal cannula worsening renal indices, on low rate IV fluids per Renal re-eval in am stable for transfer to rehab from [facility] standpoint leave prevena dressing in place until 06/01/1605/30 weaning 94% 2 liter renal indices stabilizing / creatinine 2.10 NSR stable for transfer to rehab / when cleared by Nephrology Objective: GENERAL: SKIN: Warm and dry.prevena to chest , incision intact to left leg HEAD: Normocephalic. EYES: No scleral icterus. No injection or drainage. NECK: Supple, trachea midline. No JVD or lymphadenopathy. CARDIOVASCULAR: Regular rate and rhythm without murmurs, gallops, or rubs. RESPIRATORY: diminished in bases Breath sounds equal bilaterally. No accessory muscle use. GASTROINTESTINAL: Abdomen soft, non-tender, nondistended. MUSCULOSKELETAL: No cyanosis, or edema. BACK: Nontender without obvious deformity. No CVA tenderness. Vital Signs Date Time Temp Pulse Resp B/P Pulse Ox O2 Delivery O2 Flow Rate FiO2 05/30/16 07:16 92 Nasal Cannula 2.00 05/30/16 07:00 99.0 64 20 133/63 93 05/30/16 06:00 68 05/30/16 05:00 65 05/30/16 04:00 97.8 57 20 135/65 92 05/30/16 04:00 92 Nasal Cannula 2.00 05/30/16 04:00 64 05/30/16 03:00 63 05/30/16 02:00 54 05/30/16 01:00 57 05/30/16 00:00 92 Nasal Cannula 2.00 05/30/16 00:00 55 05/30/16 00:00 98.4 55 20 156/67 92 05/29/16 23:00 55 05/29/16 22:00 56 05/29/16 21:00 57 05/29/16 20:00 92 Nasal Cannula 2.00 05/29/16 20:00 98.5 57 22 170/74 92 05/29/16 20:00 64 05/29/16 19:34 93 Nasal Cannula 2.00 05/29/16 19:00 66 05/29/16 18:17 68 05/29/16 17:02 61 05/29/16 16:28 94 Nasal Cannula 2.00 05/29/16 16:00 55 05/29/16 15:18 93 Nasal Cannula 2.00 05/29/16 15:17 97.8 65 20 126/60 93 05/29/16 15:00 63 05/29/16 14:00 71 05/29/16 13:00 67 05/29/16 12:00 72 05/29/16 11:30 92 Nasal Cannula 2.00 05/29/16 11:30 97.6 63 18 137/61 92 05/29/16 11:00 66 05/29/16 10:00 72 Labs: Laboratory Tests Test 05/30/16 05:45 White Blood Count 11.3 TH/MM3 (4.0-11.0) Red Blood Count 3.32 MIL/MM3 (4.50-5.90) Hemoglobin 9.9 GM/DL (13.0-17.0) Hematocrit 30.4 % (39.0-51.0) Mean Corpuscular Volume 91.7 FL (80.0-100.0) Mean Corpuscular Hemoglobin 29.9 PG (27.0-34.0) Mean Corpuscular Hemoglobin 32.6 % Concent (32.0-36.0) Red Cell Distribution Width 12.8 % (11.6-17.2) Platelet Count 185 TH/MM3 (150-450) Mean Platelet Volume 9.3 FL (7.0-11.0) Neutrophils (%) (Auto) 80.0 % (16.0-70.0) Lymphocytes (%) (Auto) 8.8 % (9.0-44.0) Monocytes (%) (Auto) 6.7 % (0.0-8.0) Eosinophils (%) (Auto) 4.1 % (0.0-4.0) Basophils (%) (Auto) 0.4 % (0.0-2.0) Neutrophils # (Auto) 9.0 TH/MM3 (1.8-7.7) Lymphocytes # (Auto) 1.0 TH/MM3 (1.0-4.8) Monocytes # (Auto) 0.8 TH/MM3 (0-0.9) Eosinophils # (Auto) 0.5 TH/MM3 (0-0.4) Basophils # (Auto) 0.0 TH/MM3 (0-0.2) CBC Comment DIFF FINAL Differential Comment Sodium Level 140 MEQ/L (136-145) Potassium Level 4.1 MEQ/L (3.5-5.1) Chloride Level 107 MEQ/L (98-107) Carbon Dioxide Level 24.3 MEQ/L (21.0-32.0) Anion Gap 9 MEQ/L (5-15) Blood Urea Nitrogen 36 MG/DL (7-18) Creatinine 2.10 MG/DL (0.60-1.30) Estimat Glomerular Filtration 37 ML/MIN (>89) Rate Random Glucose 114 MG/DL (74-106) Calcium Level 8.6 MG/DL (8.5-10.1) Result Diagram: 05/30/1654405/30/16544 Telemetry: NSR (1) CHF (congestive heart failure) Plan: EF 42 % no gerardo for now with elevated renal indices (2) S/P CABG x 2 Plan: statin, ASA, BB , plavix pulm toileting OOB ambulate stable for transfer to rehab / when cleared by Nephro wean 02 as tolerated (3) CAD (coronary artery disease) (4) Hyperlipemia Plan: on statin, heart healthy (5) Hypertension Plan: controlled (6) Diabetes mellitus Plan: increase sliding scale coverage, add levemir hold metformin with GFR blood sugar stable (7) Acute kidney injury Plan: renal following, avoid neprho toxic meds Problem Qualifiers (1) CHF (congestive heart failure): Qualified Code: I50.33 - Acute on chronic diastolic congestive heart failure Fay Erickson May 30, 2016 09:36
[2016-05-30] MEDS: DORZOLAMIDE 2% OPTH SOLN 200 DROP/10 ML BTLO EACH EYE SCH (10:04)
[2016-05-30] MEDS: MULTIVITAMINS/MINERALS THERAPEUTIC TAB PO SCH (10:05)
[2016-05-30] MEDS: DOCUSATE SODIUM 100 MG CAP PO SCH ×2 (10:05→20:37)
[2016-05-30] MEDS: FINASTERIDE 5 MG TAB PO SCH (10:05)
[2016-05-30] MEDS: ATORVASTATIN 40 MG TAB PO SCH (10:05)
[2016-05-30] MEDS: MAGNESIUM HYDROXIDE SUSP 30 ML CUP PO SCH (10:05)
[2016-05-30] MEDS: POLYETHYLENE GLYCOL 17 GM PKG PO SCH (10:05)
[2016-05-30] MEDS: CLOPIDOGREL 75 MG TAB PO SCH (10:06)
[2016-05-30] MEDS: ASPIRIN 81 MG CHEW TAB PO SCH (10:06)
[2016-05-30] MEDS: CARVEDILOL 3.125 MG TAB PO SCH ×2 (10:06→20:37)
[2016-05-30] MEDS: glipiZIDE 10 MG TAB PO SCH (10:06)
[2016-05-30] MEDS: AMIODARONE 200 MG TAB PO SCH ×2 (10:06→20:37)
[2016-05-30] MEDS: INSULIN DETEMIR 100 UNITS/ML VIAL SQ SCH ×2 (10:07→20:37)
[2016-05-30] MEDS: SODIUM CHLORIDE 0.9% FLUSH 5 ML FLUSH IV FLUSH SCH (10:07)
--- NOTE | 2016-05-30 10:08 | HHI.NPPN ---
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 I was called to see the patient because of elevated BUN and creatinine. The patient has creatinine of 1.4-1.5 on admission. Additional Remarks Patient is alert, sitting on chair , clinically same, with nasal cannula. Review of Systems Cardiovascular Cardiac: Chest Pain, THOMAS Objective Data Data 05/29/16 05/30/16 19:00 07:00 Intake Total 720 ml 600 ml Output Total 300 ml 600 ml Balance 420 ml 0 ml Intake Oral 720 ml 600 ml Output Urine Total 300 ml 600 ml # Bowel Movements 0 Vital Signs Date Time Temp Pulse Resp B/P Pulse Ox O2 Delivery O2 Flow Rate FiO2 05/30/16 07:16 92 Nasal Cannula 2.00 05/30/16 07:00 99.0 64 20 133/63 93 05/30/16 06:00 68 05/30/16 05:00 65 05/30/16 04:00 97.8 57 20 135/65 92 05/30/16 04:00 92 Nasal Cannula 2.00 05/30/16 04:00 64 05/30/16 03:00 63 05/30/16 02:00 54 05/30/16 01:00 57 05/30/16 00:00 92 Nasal Cannula 2.00 05/30/16 00:00 55 05/30/16 00:00 98.4 55 20 156/67 92 05/29/16 23:00 55 05/29/16 22:00 56 05/29/16 21:00 57 05/29/16 20:00 92 Nasal Cannula 2.00 05/29/16 20:00 98.5 57 22 170/74 92 05/29/16 20:00 64 05/29/16 19:34 93 Nasal Cannula 2.00 05/29/16 19:00 66 05/29/16 18:17 68 05/29/16 17:02 61 05/29/16 16:28 94 Nasal Cannula 2.00 05/29/16 16:00 55 05/29/16 15:18 93 Nasal Cannula 2.00 2/28/17 15:17 97.8 65 20 126/60 93 05/29/16 15:00 63 05/29/16 14:00 71 05/29/16 13:00 67 05/29/16 12:00 72 05/29/16 11:30 92 Nasal Cannula 2.00 05/29/16 11:30 97.6 63 18 137/61 92 05/29/16 11:00 66 -: 05/30/16 0545 05/30/16 0545 Physical Exam General Appearance: No Acute Distress, Comfortable Eyes Eye Exam: Pupils Equal Ears & Nose Ears & Nose Exam: Nasal Mucosa Dennis Throat Throat Exam: Oral Mucosa Dennis & Moist Neck Neck Exam: Neck Supple, Trachea Midline Pulmonary Resp Exam: Breath Sounds Equal, No Distress, Rhonchi, Decreased Bases Cardiology CV Exam: Regular, Good Perfusion Gastrointestinal/Abdomen GI Exam: Soft, Non-Tender, Bowel Sounds Present, Non-Distended Musculoskeletal MS Exam: Joints Intact Integumentary Skin Exam: Warm, Dry Extremeties Extremities Exam: Trace Edema Neurologic Neuro Exam: Alert, Awake, Oriented Psychiatric Psych Exam: Appropriate Responses Assessment/Plan Assessment Summary: NATALIE/Acute Renal Failure, Hypertension, CKD Stage III Problem List: (1) Elevated troponin (2) Chest pain in adult (3) Diabetes mellitus (4) CAD (coronary artery disease) (5) CHF (congestive heart failure) (6) Hyperlipemia (7) Hypertension (8) Stage 3 chronic kidney disease (9) Acute kidney injury (10) S/P CABG x 2 Plan Patient has been non oliguric. Creatinine is now almost same. Renal U/S noted, has possible bladder mass, cannot do CT with contrast, Urine Na. was low and osmolality elevated. possible has an element of pre renal and ATN. Seen by urology. Will need Cystoscopy. Follow urine out put and BMP. Problem Qualifiers (1) CHF (congestive heart failure): Qualified Code: I50.33 - Acute on chronic diastolic congestive heart failure Bel Méndez MD May 30, 2016 10:08
--- NOTE | 2016-05-30 11:20 | HHI.PR ---
Subjective Interval History awake alert and oriented sitting in chair no chest pain slight sob had BM no family at bed side Blood glucose running on high side Vitals/Results Intake & Output 05/29/16 05/29/16 05/30/16 15:00 23:00 07:00 Intake Total 720 ml 600 ml Output Total 300 ml 600 ml Balance 420 ml 0 ml Intake Oral 720 ml 600 ml Output Urine Total 300 ml 600 ml # Bowel Movements 0 Vital Signs Vital Signs Date Time Temp Pulse Resp B/P Pulse Ox O2 Delivery O2 Flow Rate FiO2 05/30/16 11:00 56 05/30/16 10:00 51 05/30/16 09:00 58 05/30/16 08:00 55 05/30/16 07:16 92 Nasal Cannula 2.00 05/30/16 07:00 55 05/30/16 07:00 93 Room Air 05/30/16 07:00 99.0 64 20 133/63 93 05/30/16 06:00 68 05/30/16 05:00 65 05/30/16 04:00 97.8 57 20 135/65 92 05/30/16 04:00 92 Nasal Cannula 2.00 05/30/16 04:00 64 05/30/16 03:00 63 05/30/16 02:00 54 05/30/16 01:00 57 05/30/16 00:00 92 Nasal Cannula 2.00 05/30/16 00:00 55 05/30/16 00:00 98.4 55 20 156/67 92 05/29/16 23:00 55 05/29/16 22:00 56 05/29/16 21:00 57 05/29/16 20:00 92 Nasal Cannula 2.00 05/29/16 20:00 98.5 57 22 170/74 92 05/29/16 20:00 64 05/29/16 19:34 93 Nasal Cannula 2.00 05/29/16 19:00 66 05/29/16 18:17 68 05/29/16 17:02 61 05/29/16 16:28 94 Nasal Cannula 2.00 05/29/16 16:00 55 05/29/16 15:18 93 Nasal Cannula 2.00 05/29/16 15:17 97.8 65 20 126/60 93 05/29/16 15:00 63 05/29/16 14:00 71 05/29/16 13:00 67 05/29/16 12:00 72 05/29/16 11:30 92 Nasal Cannula 2.00 05/29/16 11:30 97.6 63 18 137/61 92 CBC/BMP: 05/30/16 0545 05/30/16 0545 Lab Results Laboratory Tests Test 05/30/16 05:45 White Blood Count 11.3 TH/MM3 Red Blood Count 3.32 MIL/MM3 Hemoglobin 9.9 GM/DL Hematocrit 30.4 % Mean Corpuscular Volume 91.7 FL Mean Corpuscular Hemoglobin 29.9 PG Mean Corpuscular Hemoglobin 32.6 % Concent Red Cell Distribution Width 12.8 % Platelet Count 185 TH/MM3 Mean Platelet Volume 9.3 FL Neutrophils (%) (Auto) 80.0 % Lymphocytes (%) (Auto) 8.8 % Monocytes (%) (Auto) 6.7 % Eosinophils (%) (Auto) 4.1 % Basophils (%) (Auto) 0.4 % Neutrophils # (Auto) 9.0 TH/MM3 Lymphocytes # (Auto) 1.0 TH/MM3 Monocytes # (Auto) 0.8 TH/MM3 Eosinophils # (Auto) 0.5 TH/MM3 Basophils # (Auto) 0.0 TH/MM3 CBC Comment DIFF FINAL Differential Comment Sodium Level 140 MEQ/L Potassium Level 4.1 MEQ/L Chloride Level 107 MEQ/L Carbon Dioxide Level 24.3 MEQ/L Anion Gap 9 MEQ/L Blood Urea Nitrogen 36 MG/DL Creatinine 2.10 MG/DL Estimat Glomerular Filtration 37 ML/MIN Rate Random Glucose 114 MG/DL Calcium Level 8.6 MG/DL Physical Exam General General Appearance: No Acute Distress, Comfortable Eyes Eye Exam: Pupils Equal Ears & Nose Ears & Nose Exam: Nasal Mucosa [place] Throat Throat Exam: Oral Mucosa [place] & Moist Neck Neck Exam: Neck Supple, Trachea Midline Pulmonary Resp Exam: Breath Sounds Equal, No Distress, Decreased Bases Cardiology CV Exam: Regular, Good Perfusion Chest/Breast Chest/Breast Remarks chest dressing Gastrointestinal/Abdomen GI Exam: Soft, Non-Tender, Bowel Sounds Present, Non-Distended Musculoskeletal MS Exam: Joints Intact Integumentary Skin Exam: Warm, Dry Extremeties Extremities Exam: Trace Edema Neurologic Neuro Exam: Alert, Awake, Oriented Psychiatric Psych Exam: Appropriate Responses VTE Prophylaxis VTE Prophylaxis Meds: Heparin Assessment/Plan Assessment/Plan ASSESSMENT 1. Chest pain, with abnormal stress test, multi vessel CAD on cardiac cath 2. s/p CABG x2 05/25/16 3. Chronic kidney disease. 4. Diabetes type 2, non-insulin dependent. 5. Gastroesophageal reflux disease. 6. Hypertension, uncontrolled 7. Cough, mild. 8. Elevated lipase Plan Appreciate card input Abnormal STT s/p cardiac cath with occluded RCA/ circumflex and severe disease in prox LAD Appreciater CTS input s/p CABG x2 POD 5 chest tube discontinued on ASA plavix Lipitor and Amio heart rate appears stable post op leucocytosis, improving no fever monitor CXR elevated lipase, asymptomatic pancreas US okay Continue accuchecks with AC/HS diabetic diet hospice educator consult, patient non compliant with diet NATALIE on h/o CKD , creatinine function stable today Appreciate Nephrology input on gentle i/v fluids renal US bladder mass, Urology consulted, outpatient cystoscopy, will need to hold blood thinners for 1 week strict i & Os recheck in am DVT prophylaxis PT eval D/W pt no family at bed side discussed with nursing staff possible discharge to SNF in am, if renal function continues to improve discussed with Faustina Macias MD May 30, 2016 11:20
[2016-05-30] MEDS: SODIUM CHLOR 0.9% 1000 ML INJ 1,000 ML IV SCH (16:38)
[2016-05-30] MEDS: SENNOSIDES 8.6 MG TAB PO SCH (20:37)
[2016-05-31] VITALS (29 sets, daily range): BP systolic 107–152; BP diastolic 53–77; PULSE 50–74; RESP 15–25; TEMP 97.8–99; O2SAT 90–94
[2016-05-31] MEDS: hydrALAZINE HCL 25 MG TAB PO SCH ×4 (03:00→20:21)
[2016-05-31 05:59] LABS: AUTOMATED NEUTROPHIL # 6.6 TH/MM3 (1.8-7.7); BASOPHIL % 0.3 % (0.0-2.0); EOSINOPHIL # 0.5 TH/MM3 (0-0.4); EOSINOPHIL % 5.9 % (0.0-4.0); HEMATOCRIT 28.4 % (39.0-51.0); HEMO FLAGS DIFF FINAL; LYMPH % 10.6 % (9.0-44.0); LYMPHOCYTE # 0.9 TH/MM3 (1.0-4.8); MEAN CELL VOLUME 90.6 FL (80.0-100.0); MEAN CORPUSCULAR HEMOGLOBIN 30.8 PG (27.0-34.0); MONO % 8.3 % (0.0-8.0); NEUT % 74.9 % (16.0-70.0); PLATELET COUNT 208 TH/MM3 (150-450); RED BLOOD COUNT 3.14 MIL/MM3 (4.50-5.90); RED CELL DISTRIBUTION WIDTH 12.7 % (11.6-17.2); WHITE BLOOD COUNT 8.8 TH/MM3 (4.0-11.0)
[2016-05-31] MEDS: PANTOPRAZOLE SOD 40 MG DELAYED RELEASE TAB PO SCH (06:00)
[2016-05-31 06:24] LABS: BICARBONATE 26.3 MEQ/L (21.0-32.0); POTASSIUM 4.1 MEQ/L (3.5-5.1)
[2016-05-31] MEDS: INSULIN ASPART SUPPLEMENTAL SCALE SQ SCH ×4 (07:00→20:23)
[2016-05-31] MEDS: POLYETHYLENE GLYCOL 17 GM PKG PO SCH (09:00)
[2016-05-31] MEDS: glipiZIDE 10 MG TAB PO SCH (09:47)
[2016-05-31] MEDS: CLOPIDOGREL 75 MG TAB PO SCH (09:48)
[2016-05-31] MEDS: FINASTERIDE 5 MG TAB PO SCH (09:48)
[2016-05-31] MEDS: MULTIVITAMINS/MINERALS THERAPEUTIC TAB PO SCH (09:48)
[2016-05-31] MEDS: DOCUSATE SODIUM 100 MG CAP PO SCH ×2 (09:48→20:22)
[2016-05-31] MEDS: CARVEDILOL 3.125 MG TAB PO SCH ×2 (09:48→20:22)
[2016-05-31] MEDS: ASPIRIN 81 MG CHEW TAB PO SCH (09:48)
[2016-05-31] MEDS: AMIODARONE 200 MG TAB PO SCH ×2 (09:48→20:22)
[2016-05-31] MEDS: ATORVASTATIN 40 MG TAB PO SCH (09:48)
[2016-05-31] MEDS: INSULIN DETEMIR 100 UNITS/ML VIAL SQ SCH ×2 (09:49→20:23)
[2016-05-31] MEDS: MAGNESIUM HYDROXIDE SUSP 30 ML CUP PO SCH (09:49)
--- NOTE | 2016-05-31 10:56 | HHI.NPPN ---
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 I was called to see the patient because of elevated BUN and creatinine. The patient has creatinine of 1.4-1.5 on admission. Additional Remarks Patient is alert, sitting on chair , with nasal cannula, denies SOB, not in distress. Review of Systems Cardiovascular Cardiac: Chest Pain, THOMAS Objective Data Data 05/30/16 05/31/16 19:00 07:00 Intake Total 600 ml Output Total 750 ml Balance -150 ml Intake Oral 600 ml Output Urine Total 750 ml # Bowel Movements 1 Vital Signs Date Time Temp Pulse Resp B/P Pulse Ox O2 Delivery O2 Flow Rate FiO2 05/31/16 08:15 94 Nasal Cannula 2.00 05/31/16 08:15 98.2 69 18 148/66 94 05/31/16 07:24 92 Nasal Cannula 3.00 05/31/16 07:01 64 05/31/16 06:00 51 05/31/16 05:00 54 05/31/16 04:00 51 05/31/16 03:00 51 05/31/16 02:00 52 05/31/16 01:00 54 05/31/16 00:00 54 05/31/16 00:00 94 Nasal Cannula 1.00 05/31/16 00:00 97.8 54 18 152/77 94 05/30/16 22:00 57 05/30/16 21:00 57 05/30/16 20:00 69 05/30/16 20:00 97.2 63 22 172/77 95 05/30/16 20:00 98 Nasal Cannula 1.00 05/30/16 19:00 58 05/30/16 18:00 60 05/30/16 17:00 65 05/30/16 16:00 61 05/30/16 15:00 92 Nasal Cannula 1.00 05/30/16 15:00 97.4 59 20 148/65 91 05/30/16 15:00 54 05/30/16 14:00 63 05/30/16 13:00 56 05/30/16 12:00 54 05/30/16 11:00 98.1 55 20 128/62 92 05/30/16 11:00 56 05/30/16 11:00 92 Nasal Cannula 1.00 -: 05/31/16 0520 05/31/16 0520 Physical Exam General Appearance: No Acute Distress, Comfortable Eyes Eye Exam: Pupils Equal Ears & Nose Ears & Nose Exam: Nasal Mucosa Richardson Throat Throat Exam: Oral Mucosa [place] & Moist Neck Neck Exam: Neck Supple, Trachea Midline Pulmonary Resp Exam: Breath Sounds Equal, No Distress, Decreased Bases Cardiology CV Exam: Regular, Good Perfusion Gastrointestinal/Abdomen GI Exam: Soft, Non-Tender, Bowel Sounds Present, Non-Distended Musculoskeletal MS Exam: Joints Intact Integumentary Skin Exam: Warm, Dry Extremeties Extremities Exam: Trace Edema Neurologic Neuro Exam: Alert, Awake, Oriented Psychiatric Psych Exam: Appropriate Responses Assessment/Plan Assessment Summary: NATALIE/Acute Renal Failure, Hypertension, CKD Stage III Problem List: (1) Elevated troponin (2) Chest pain in adult (3) Diabetes mellitus (4) CAD (coronary artery disease) (5) CHF (congestive heart failure) (6) Hyperlipemia (7) Hypertension (8) Stage 3 chronic kidney disease (9) Acute kidney injury (10) S/P CABG x 2 Plan Patient has been non oliguric. Creatinine improving , now 1.9 Renal U/S noted, has possible bladder mass, cannot do CT with contrast, Urine Na. was low and osmolality elevated. possible has an element of pre renal and ATN. Seen by urology. Will need Cystoscopy as out patient. Can be transfer to Rehab from Nephrology. Problem Qualifiers (1) Diabetes mellitus: (2) CAD (coronary artery disease): (3) CHF (congestive heart failure): Qualified Code: I50.33 - Acute on chronic diastolic congestive heart failure Bel Méndez MD May 31, 2016 10:56
--- NOTE | 2016-05-31 12:10 | PD.CAR.PN ---
CVT Progress Note CVT: POD #: 6 Subjective/Hospital Course: 05/25 SURGICAL PROCEDURE 1. Urgent Off-pump Coronary Artery Bypass Grafting x 2 with left internal mammary artery (RAGLAND) to left anterior descending (LAD), reverse saphenous vein graft to D1 2. Left Leg Endoscopic Vein [place] 3. Intraoperative Vein Mapping. 05/26 Doing well Extubated and tolerating Transfer [facility] Ambulate Baseline creatinine 1.3-1.5. Presently 1.45. Will continue to monitor 05/27 D/C CT Gentle diuresis Wean O2 Discharge planning 05/28 chest tube removed yesterday, on room air worsening renal indices, pt does live alone will eval for rehab/ discussed with daughter 05/29 on 3 liter nasal cannula worsening renal indices, on low rate IV fluids per Renal re-eval in am stable for transfer to rehab from [facility] standpoint leave prevena dressing in place until 06/01/1605/30 weaning 94% 2 liter renal indices stabilizing / creatinine 2.10 NSR stable for transfer to rehab / when cleared by Nephrology 05/31 remains on 2 liters renal indices improving cleared by Nephro for transfer to rehab leave prevena in place until 06/01 remove in rehab stable for transfer to rehab from [facility] standpoint Objective: GENERAL: SKIN: Warm and dry./ prevena dressing to chest / incision intact left leg HEAD: Normocephalic. EYES: No scleral icterus. No injection or drainage. NECK: Supple, trachea midline. No JVD or lymphadenopathy. CARDIOVASCULAR: Regular rate and rhythm without murmurs, gallops, or rubs. mild lower ext edema RESPIRATORY: Breath sounds equal bilaterally. No accessory muscle use. few basilar crackles GASTROINTESTINAL: Abdomen soft, non-tender, nondistended. MUSCULOSKELETAL: No cyanosis, or edema. BACK: Nontender without obvious deformity. No CVA tenderness. Vital Signs Date Time Temp Pulse Resp B/P Pulse Ox O2 Delivery O2 Flow Rate FiO2 05/31/16 08:15 94 Nasal Cannula 2.00 05/31/16 08:15 98.2 69 18 148/66 94 05/31/16 07:24 92 Nasal Cannula 3.00 05/31/16 07:01 64 05/31/16 06:00 51 05/31/16 05:00 54 05/31/16 04:00 51 05/31/16 03:00 51 05/31/16 02:00 52 05/31/16 01:00 54 05/31/16 00:00 54 05/31/16 00:00 94 Nasal Cannula 1.00 05/31/16 00:00 97.8 54 18 152/77 94 05/30/16 22:00 57 05/30/16 21:00 57 05/30/16 20:00 69 05/30/16 20:00 97.2 63 22 172/77 95 05/30/16 20:00 98 Nasal Cannula 1.00 05/30/16 19:00 58 05/30/16 18:00 60 05/30/16 17:00 65 05/30/16 16:00 61 05/30/16 15:00 92 Nasal Cannula 1.00 05/30/16 15:00 97.4 59 20 148/65 91 05/30/16 15:00 54 05/30/16 14:00 63 05/30/16 13:00 56 05/30/16 12:00 54 Labs: Laboratory Tests Test 05/31/16 05:20 White Blood Count 8.8 TH/MM3 (4.0-11.0) Red Blood Count 3.14 MIL/MM3 (4.50-5.90) Hemoglobin 9.7 GM/DL (13.0-17.0) Hematocrit 28.4 % (39.0-51.0) Mean Corpuscular Volume 90.6 FL (80.0-100.0) Mean Corpuscular Hemoglobin 30.8 PG (27.0-34.0) Mean Corpuscular Hemoglobin 34.0 % Concent (32.0-36.0) Red Cell Distribution Width 12.7 % (11.6-17.2) Platelet Count 208 TH/MM3 (150-450) Mean Platelet Volume 9.1 FL (7.0-11.0) Neutrophils (%) (Auto) 74.9 % (16.0-70.0) Lymphocytes (%) (Auto) 10.6 % (9.0-44.0) Monocytes (%) (Auto) 8.3 % (0.0-8.0) Eosinophils (%) (Auto) 5.9 % (0.0-4.0) Basophils (%) (Auto) 0.3 % (0.0-2.0) Neutrophils # (Auto) 6.6 TH/MM3 (1.8-7.7) Lymphocytes # (Auto) 0.9 TH/MM3 (1.0-4.8) Monocytes # (Auto) 0.7 TH/MM3 (0-0.9) Eosinophils # (Auto) 0.5 TH/MM3 (0-0.4) Basophils # (Auto) 0.0 TH/MM3 (0-0.2) CBC Comment DIFF FINAL Differential Comment Sodium Level 143 MEQ/L (136-145) Potassium Level 4.1 MEQ/L (3.5-5.1) Chloride Level 108 MEQ/L (98-107) Carbon Dioxide Level 26.3 MEQ/L (21.0-32.0) Anion Gap 9 MEQ/L (5-15) Blood Urea Nitrogen 34 MG/DL (7-18) Creatinine 1.93 MG/DL (0.60-1.30) Estimat Glomerular Filtration 41 ML/MIN (>89) Rate Random Glucose 107 MG/DL (74-106) Calcium Level 8.5 MG/DL (8.5-10.1) Result Diagram: 05/31/1651905/31/16519 Telemetry: NSR (1) CHF (congestive heart failure) Plan: EF 42 % no gerardo for now with elevated renal indices (2) S/P CABG x 2 Plan: statin, ASA, BB , plavix pulm toileting OOB ambulate stable for transfer to rehab / when cleared by Nephro wean 02 as tolerated (3) CAD (coronary artery disease) (4) Hyperlipemia Plan: on statin, heart healthy (5) Hypertension Plan: controlled (6) Diabetes mellitus Plan: increase sliding scale coverage, add levemir hold metformin with GFR blood sugar stable (7) Acute kidney injury Plan: renal following, avoid neprho toxic meds Problem Qualifiers (1) CHF (congestive heart failure): Qualified Code: I50.33 - Acute on chronic diastolic congestive heart failure (2) CAD (coronary artery disease): (3) Diabetes mellitus: Fay Erickson May 31, 2016 11:49
--- NOTE | 2016-05-31 17:37 | HHI.PR ---
Subjective Interval History Alert, verbal, denies complaints, ambulating without problems, no incisional pain Review of Systems Constitutional Constitutional Remarks 10 systems reviewed otherwise negative Vitals/Results Intake & Output 05/30/16 05/30/16 05/31/16 15:00 23:00 07:00 Intake Total 600 ml Output Total 750 ml Balance -150 ml Intake Oral 600 ml Output Urine Total 750 ml # Bowel Movements 1 Vital Signs Vital Signs Date Time Temp Pulse Resp B/P Pulse Ox O2 Delivery O2 Flow Rate FiO2 05/31/16 17:01 54 05/31/16 16:00 50 05/31/16 15:30 97.9 55 24 152/66 90 05/31/16 15:30 94 Nasal Cannula 2.00 05/31/16 15:00 59 05/31/16 14:00 51 05/31/16 13:00 54 05/31/16 12:00 54 05/31/16 11:15 94 Nasal Cannula 2.00 05/31/16 11:15 98.4 51 24 107/53 90 05/31/16 11:00 58 05/31/16 10:00 74 05/31/16 09:00 66 05/31/16 08:15 94 Nasal Cannula 2.00 05/31/16 08:15 98.2 69 18 148/66 94 05/31/16 08:00 54 05/31/16 07:24 92 Nasal Cannula 3.00 05/31/16 07:01 64 05/31/16 06:00 51 05/31/16 05:00 54 05/31/16 04:00 51 05/31/16 03:00 51 05/31/16 02:00 52 05/31/16 01:00 54 05/31/16 00:00 54 05/31/16 00:00 94 Nasal Cannula 1.00 05/31/16 00:00 97.8 54 18 152/77 94 05/30/16 22:00 57 05/30/16 21:00 57 05/30/16 20:00 69 05/30/16 20:00 97.2 63 22 172/77 95 05/30/16 20:00 98 Nasal Cannula 1.00 05/30/16 19:00 58 05/30/16 18:00 60 CBC/BMP: 05/31/16 0520 05/31/16 0520 Lab Results Laboratory Tests Test 05/31/16 05:20 White Blood Count 8.8 TH/MM3 Red Blood Count 3.14 MIL/MM3 Hemoglobin 9.7 GM/DL Hematocrit 28.4 % Mean Corpuscular Volume 90.6 FL Mean Corpuscular Hemoglobin 30.8 PG Mean Corpuscular Hemoglobin 34.0 % Concent Red Cell Distribution Width 12.7 % Platelet Count 208 TH/MM3 Mean Platelet Volume 9.1 FL Neutrophils (%) (Auto) 74.9 % Lymphocytes (%) (Auto) 10.6 % Monocytes (%) (Auto) 8.3 % Eosinophils (%) (Auto) 5.9 % Basophils (%) (Auto) 0.3 % Neutrophils # (Auto) 6.6 TH/MM3 Lymphocytes # (Auto) 0.9 TH/MM3 Monocytes # (Auto) 0.7 TH/MM3 Eosinophils # (Auto) 0.5 TH/MM3 Basophils # (Auto) 0.0 TH/MM3 CBC Comment DIFF FINAL Differential Comment Sodium Level 143 MEQ/L Potassium Level 4.1 MEQ/L Chloride Level 108 MEQ/L Carbon Dioxide Level 26.3 MEQ/L Anion Gap 9 MEQ/L Blood Urea Nitrogen 34 MG/DL Creatinine 1.93 MG/DL Estimat Glomerular Filtration 41 ML/MIN Rate Random Glucose 107 MG/DL Calcium Level 8.5 MG/DL Physical Exam General General Appearance: No Acute Distress, Comfortable Eyes Eye Exam: Pupils Equal Ears & Nose Ears & Nose Exam: Nasal Mucosa [place] Throat Throat Exam: Oral Mucosa [place] & Moist Neck Neck Exam: Neck Supple, Trachea Midline Pulmonary Resp Exam: Breath Sounds Equal, No Distress, Decreased Bases Resp Remarks Clean looking sternotomy area covered with clean plastic dressing Cardiology CV Exam: Regular, Good Perfusion Gastrointestinal/Abdomen GI Exam: Soft, Non-Tender, Bowel Sounds Present, Non-Distended Musculoskeletal MS Exam: Joints Intact Integumentary Skin Exam: Warm, Dry Extremeties Extremities Exam: Trace Edema Neurologic Neuro Exam: Alert, Awake, Oriented Psychiatric Psych Exam: Appropriate Responses VTE Prophylaxis VTE Prophylaxis Meds: Heparin Assessment/Plan Assessment/Plan ASSESSMENT . Chest pain on admission, with abnormal stress test, multi vessel CAD on cardiac cath . s/p CABG x2 05/25/16 . Chronic kidney disease. . Diabetes type 2, non-insulin dependent. . Gastroesophageal reflux disease. . Hypertension, uncontrolled . Cough, mild . renal US bladder mass, seen by Urology . Elevated lipase Plan Cardiology, nephrology and cardiac surgery following Routine post open heart care chest tube discontinued ASA plavix Lipitor Amiodarone heart rate stable Follow renal indices post op leucocytosis, improving no fever Continue accuchecks with AC/HS diabetic diet art educator consult, patient non compliant with diet outpatient cystoscopy, will need to hold blood thinners for 1 week DVT prophylaxis PT D/W patient possible discharge to SNF soon Manoj Euceda MD May 31, 2016 17:37
[2016-05-31] MEDS: SODIUM CHLORIDE 0.9% FLUSH 5 ML FLUSH IV FLUSH SCH ×2 (20:22→22:52)
[2016-05-31] MEDS: DORZOLAMIDE 2% OPTH SOLN 200 DROP/10 ML BTLO EACH EYE SCH ×3 (20:23→23:18)
[2016-05-31] MEDS: SENNOSIDES 8.6 MG TAB PO SCH (21:00)
[2016-06-01] VITALS (12 sets, daily range): BP systolic 127–162; BP diastolic 60–73; PULSE 51–85; RESP 19–28; TEMP 98.5–98.9; O2SAT 93–96
[2016-06-01] MEDS: DORZOLAMIDE 2% OPTH SOLN 200 DROP/10 ML BTLO EACH EYE SCH ×2 (01:05→09:21)
[2016-06-01] MEDS: hydrALAZINE HCL 25 MG TAB PO SCH ×2 (02:37→09:20)
[2016-06-01 04:00] LABS: AUTOMATED NEUTROPHIL # 8.4 TH/MM3 (1.8-7.7); BASOPHIL % 0.4 % (0.0-2.0); EOSINOPHIL # 0.6 TH/MM3 (0-0.4); EOSINOPHIL % 5.5 % (0.0-4.0); HEMO FLAGS DIFF FINAL; LYMPH % 9.8 % (9.0-44.0); LYMPHOCYTE # 1.1 TH/MM3 (1.0-4.8); MEAN CELL VOLUME 90.5 FL (80.0-100.0); MEAN CORPUSCULAR HGB CONC 34.3 % (32.0-36.0); MONO % 6.7 % (0.0-8.0); NEUT % 77.6 % (16.0-70.0); PLATELET COUNT 225 TH/MM3 (150-450); RED BLOOD COUNT 2.98 MIL/MM3 (4.50-5.90); RED CELL DISTRIBUTION WIDTH 12.7 % (11.6-17.2); WHITE BLOOD COUNT 10.8 TH/MM3 (4.0-11.0)
[2016-06-01 04:19] LABS: BICARBONATE 25.6 MEQ/L (21.0-32.0); MAGNESIUM 2.6 MG/DL (1.5-2.5); POTASSIUM 4.3 MEQ/L (3.5-5.1)
[2016-06-01] MEDS: PANTOPRAZOLE SOD 40 MG DELAYED RELEASE TAB PO SCH (05:03)
[2016-06-01] MEDS: INSULIN ASPART SUPPLEMENTAL SCALE SQ SCH ×2 (07:00→11:00)
[2016-06-01] MEDS: POLYETHYLENE GLYCOL 17 GM PKG PO SCH (09:00)
[2016-06-01] MEDS: MAGNESIUM HYDROXIDE SUSP 30 ML CUP PO SCH (09:00)
[2016-06-01] MEDS: DOCUSATE SODIUM 100 MG CAP PO SCH (09:00)
[2016-06-01] MEDS: SODIUM CHLORIDE 0.9% FLUSH 5 ML FLUSH IV FLUSH SCH (09:19)
[2016-06-01] MEDS: CLOPIDOGREL 75 MG TAB PO SCH (09:20)
[2016-06-01] MEDS: ATORVASTATIN 40 MG TAB PO SCH (09:20)
[2016-06-01] MEDS: AMIODARONE 200 MG TAB PO SCH (09:20)
[2016-06-01] MEDS: glipiZIDE 10 MG TAB PO SCH (09:20)
[2016-06-01] MEDS: FINASTERIDE 5 MG TAB PO SCH (09:20)
[2016-06-01] MEDS: INSULIN DETEMIR 100 UNITS/ML VIAL SQ SCH (09:20)
[2016-06-01] MEDS: CARVEDILOL 3.125 MG TAB PO SCH (09:20)
[2016-06-01] MEDS: MULTIVITAMINS/MINERALS THERAPEUTIC TAB PO SCH (09:21)
[2016-06-01] MEDS: ASPIRIN 81 MG CHEW TAB PO SCH (09:21)
--- NOTE | 2016-06-01 09:33 | PD.CAR.PN ---
CVT Progress Note CVT: POD #: 7 Subjective/Hospital Course: 05/25 SURGICAL PROCEDURE 1. Urgent Off-pump Coronary Artery Bypass Grafting x 2 with left internal mammary artery (RAGLAND) to left anterior descending (LAD), reverse saphenous vein graft to D1 2. Left Leg Endoscopic Vein [place] 3. Intraoperative Vein Mapping. 05/26 Doing well Extubated and tolerating Transfer [facility]PCU Ambulate Baseline creatinine 1.3-1.5. Presently 1.45. Will continue to monitor 05/27 D/C CT Gentle diuresis Wean O2 Discharge planning 05/28 chest tube removed yesterday, on room air worsening renal indices, pt does live alone will eval for rehab/ discussed with daughter 05/29 on 3 liter nasal cannula worsening renal indices, on low rate IV fluids per Renal re-eval in am stable for transfer to rehab from [facility] standpoint leave prevena dressing in place until 06/01/1605/30 weaning 94% 2 liter renal indices stabilizing / creatinine 2.10 NSR stable for transfer to rehab / when cleared by Nephrology 05/31 remains on 2 liters renal indices improving cleared by Nephro for transfer to rehab leave prevena in place until 06/01 remove in rehab stable for transfer to rehab from [facility] standpoint 06/01 will remove prevena today, await rehab bed renal indices improving Objective: GENERAL: SKIN: Warm and dry./ prevena to chest / incision intact to left leg HEAD: Normocephalic. EYES: No scleral icterus. No injection or drainage. NECK: Supple, trachea midline. No JVD or lymphadenopathy. CARDIOVASCULAR: Regular rate and rhythm without murmurs, gallops, or rubs. general edema RESPIRATORY: Breath sounds equal bilaterally. No accessory muscle use. few basilar crackles GASTROINTESTINAL: Abdomen soft, non-tender, nondistended. MUSCULOSKELETAL: No cyanosis, or edema. BACK: Nontender without obvious deformity. No CVA tenderness. Vital Signs Date Time Temp Pulse Resp B/P Pulse Ox O2 Delivery O2 Flow Rate FiO2 06/01/16 08:00 85 06/01/16 07:00 57 06/01/16 06:00 54 06/01/16 05:00 52 06/01/16 04:00 54 06/01/16 03:00 93 Nasal Cannula 2.00 06/01/16 03:00 98.9 54 27 162/73 93 06/01/16 03:00 51 06/01/16 02:00 64 06/01/16 01:00 52 06/01/16 00:00 52 05/31/16 23:00 50 05/31/16 23:00 93 Nasal Cannula 2.00 05/31/16 23:00 98.6 52 15 148/67 93 05/31/16 22:21 93 Nasal Cannula 2.00 05/31/16 22:00 51 05/31/16 21:00 56 05/31/16 20:00 56 05/31/16 19:00 99.0 52 25 141/64 93 05/31/16 19:00 93 Nasal Cannula 2.00 05/31/16 19:00 51 05/31/16 18:40 53 05/31/16 17:01 54 05/31/16 16:00 50 05/31/16 15:30 97.9 55 24 152/66 90 05/31/16 15:30 94 Nasal Cannula 2.00 05/31/16 15:00 59 05/31/16 14:00 51 05/31/16 13:00 54 05/31/16 12:00 54 05/31/16 11:15 94 Nasal Cannula 2.00 05/31/16 11:15 98.4 51 24 107/53 90 05/31/16 11:00 58 05/31/16 10:00 74 Labs: Laboratory Tests Test 06/01/16 03:19 White Blood Count 10.8 TH/MM3 (4.0-11.0) Red Blood Count 2.98 MIL/MM3 (4.50-5.90) Hemoglobin 9.3 GM/DL (13.0-17.0) Hematocrit 27.0 % (39.0-51.0) Mean Corpuscular Volume 90.5 FL (80.0-100.0) Mean Corpuscular Hemoglobin 31.0 PG (27.0-34.0) Mean Corpuscular Hemoglobin 34.3 % Concent (32.0-36.0) Red Cell Distribution Width 12.7 % (11.6-17.2) Platelet Count 225 TH/MM3 (150-450) Mean Platelet Volume 8.9 FL (7.0-11.0) Neutrophils (%) (Auto) 77.6 % (16.0-70.0) Lymphocytes (%) (Auto) 9.8 % (9.0-44.0) Monocytes (%) (Auto) 6.7 % (0.0-8.0) Eosinophils (%) (Auto) 5.5 % (0.0-4.0) Basophils (%) (Auto) 0.4 % (0.0-2.0) Neutrophils # (Auto) 8.4 TH/MM3 (1.8-7.7) Lymphocytes # (Auto) 1.1 TH/MM3 (1.0-4.8) Monocytes # (Auto) 0.7 TH/MM3 (0-0.9) Eosinophils # (Auto) 0.6 TH/MM3 (0-0.4) Basophils # (Auto) 0.0 TH/MM3 (0-0.2) CBC Comment DIFF FINAL Differential Comment Sodium Level 141 MEQ/L (136-145) Potassium Level 4.3 MEQ/L (3.5-5.1) Chloride Level 107 MEQ/L (98-107) Carbon Dioxide Level 25.6 MEQ/L (21.0-32.0) Anion Gap 8 MEQ/L (5-15) Blood Urea Nitrogen 34 MG/DL (7-18) Creatinine 1.91 MG/DL (0.60-1.30) Estimat Glomerular Filtration 41 ML/MIN (>89) Rate Random Glucose 87 MG/DL (74-106) Calcium Level 8.5 MG/DL (8.5-10.1) Phosphorus Level 3.1 MG/DL (2.5-4.9) Magnesium Level 2.6 MG/DL (1.5-2.5) Result Diagram: 06/01/1631806/01/16318 Telemetry: NSR (1) CHF (congestive heart failure) Plan: EF 42 % no gerardo for now with elevated renal indices (2) S/P CABG x 2 Plan: statin, ASA, BB , plavix pulm toileting OOB ambulate await rehab bed wean 02 as tolerated (3) CAD (coronary artery disease) (4) Hyperlipemia Plan: on statin, heart healthy (5) Hypertension Plan: controlled (6) Diabetes mellitus Plan: sliding scale coverage, add levemir hold metformin with GFR blood sugar stable (7) Acute kidney injury Plan: renal following, avoid neprho toxic meds Problem Qualifiers (1) CHF (congestive heart failure): Qualified Code: I50.33 - Acute on chronic diastolic congestive heart failure (2) CAD (coronary artery disease): (3) Diabetes mellitus: Fay Erickson Jun 01, 2016 09:33
[2016-06-01] MEDS ORDERED: PLAV75TA29 PO (11:01)
[2016-06-01] MEDS ORDERED: Aspirin Chew PO (11:01)
[2016-06-01] MEDS ORDERED: SENN8.6T15 PO (11:01)
[2016-06-01] MEDS ORDERED: CARV3.125 PO (11:01)
[2016-06-01] MEDS ORDERED: LEVEMIR SQ (11:01)
[2016-06-01] MEDS ORDERED: HYDR25TA35 PO (11:01)
[2016-06-01] MEDS ORDERED: HYDR-3516 PO (11:01)
[2016-06-01] MEDS ORDERED: AMIO200T PO (11:01)
[2016-06-01] MEDS ORDERED: POLY17S PO (11:01)
[2016-06-01] MEDS ORDERED: IPRASOL NEB (11:01)
[2016-06-01] MEDS ORDERED: NOVOLOGSS SQ (11:01)
--- NOTE | 2016-06-01 18:35 | HHI.PR ---
Subjective Interval History Alert, oriented, denies complaints, ambulating to the bathroom without problems , eating without problems Review of Systems Constitutional Constitutional Remarks 10 systems reviewed otherwise negative Vitals/Results Intake & Output 05/31/16 05/31/16 06/01/16 15:00 23:00 07:00 Intake Total 600 ml 480 ml Output Total 750 ml 200 ml Balance -150 ml 280 ml Intake Oral 600 ml 480 ml IV Total 0 ml Output Urine Total 750 ml 200 ml # Voids 3 1 # Bowel Movements 1 1 Vital Signs Vital Signs Date Time Temp Pulse Resp B/P Pulse Ox O2 Delivery O2 Flow Rate FiO2 06/01/16 11:00 98.7 53 19 127/60 96 06/01/16 10:00 66 06/01/16 10:00 Nasal Cannula 2.00 06/01/16 09:00 74 06/01/16 08:00 94 Nasal Cannula 2.50 06/01/16 08:00 85 06/01/16 08:00 98.5 59 28 142/64 94 06/01/16 07:00 57 06/01/16 06:00 54 06/01/16 05:00 52 06/01/16 04:00 54 06/01/16 03:00 93 Nasal Cannula 2.00 06/01/16 03:00 98.9 54 27 162/73 93 06/01/16 03:00 51 06/01/16 02:00 64 06/01/16 01:00 52 06/01/16 00:00 52 05/31/16 23:00 50 05/31/16 23:00 93 Nasal Cannula 2.00 05/31/16 23:00 98.6 52 15 148/67 93 05/31/16 22:21 93 Nasal Cannula 2.00 05/31/16 22:00 51 05/31/16 21:00 56 05/31/16 20:00 56 05/31/16 19:00 99.0 52 25 141/64 93 05/31/16 19:00 93 Nasal Cannula 2.00 05/31/16 19:00 51 05/31/16 18:40 53 CBC/BMP: 06/01/16 0319 06/01/16 0319 Lab Results Laboratory Tests Test 06/01/16 03:19 White Blood Count 10.8 TH/MM3 Red Blood Count 2.98 MIL/MM3 Hemoglobin 9.3 GM/DL Hematocrit 27.0 % Mean Corpuscular Volume 90.5 FL Mean Corpuscular Hemoglobin 31.0 PG Mean Corpuscular Hemoglobin 34.3 % Concent Red Cell Distribution Width 12.7 % Platelet Count 225 TH/MM3 Mean Platelet Volume 8.9 FL Neutrophils (%) (Auto) 77.6 % Lymphocytes (%) (Auto) 9.8 % Monocytes (%) (Auto) 6.7 % Eosinophils (%) (Auto) 5.5 % Basophils (%) (Auto) 0.4 % Neutrophils # (Auto) 8.4 TH/MM3 Lymphocytes # (Auto) 1.1 TH/MM3 Monocytes # (Auto) 0.7 TH/MM3 Eosinophils # (Auto) 0.6 TH/MM3 Basophils # (Auto) 0.0 TH/MM3 CBC Comment DIFF FINAL Differential Comment Sodium Level 141 MEQ/L Potassium Level 4.3 MEQ/L Chloride Level 107 MEQ/L Carbon Dioxide Level 25.6 MEQ/L Anion Gap 8 MEQ/L Blood Urea Nitrogen 34 MG/DL Creatinine 1.91 MG/DL Estimat Glomerular Filtration 41 ML/MIN Rate Random Glucose 87 MG/DL Calcium Level 8.5 MG/DL Phosphorus Level 3.1 MG/DL Magnesium Level 2.6 MG/DL Physical Exam General General Appearance: No Acute Distress, Comfortable Eyes Eye Exam: Pupils Equal Ears & Nose Ears & Nose Exam: Nasal Mucosa [place] Throat Throat Exam: Oral Mucosa [place] & Moist Neck Neck Exam: Neck Supple, Trachea Midline Pulmonary Resp Exam: Breath Sounds Equal, No Distress, Decreased Bases Resp Remarks Clean looking sternotomy area covered with clean plastic dressing Cardiology CV Exam: Regular, Good Perfusion Gastrointestinal/Abdomen GI Exam: Soft, Non-Tender, Bowel Sounds Present, Non-Distended Musculoskeletal MS Exam: Joints Intact Integumentary Skin Exam: Warm, Dry Extremeties Extremities Exam: Trace Edema Neurologic Neuro Exam: Alert, Awake, Oriented Psychiatric Psych Exam: Appropriate Responses VTE Prophylaxis VTE Prophylaxis Meds: Heparin Assessment/Plan Assessment/Plan ASSESSMENT . Chest pain on admission, with abnormal stress test, multi vessel CAD on cardiac cath . s/p CABG x2 05/25/16 . Chronic kidney disease. Similar to baseline . Mild anemia . Diabetes type 2, non-insulin dependent. . Gastroesophageal reflux disease. . Hypertension, uncontrolled . Cough, mild . renal US bladder mass, seen by Urology . Elevated lipase Plan Cardiology, nephrology and cardiac surgery following Discussed with cardiac surgeon Discharge to rehabilitation The patient will need follow-up with urology regarding his bladder tumor ASA plavix Lipitor Amiodarone heart rate stable renal indices Continue accuchecks with AC/HS diabetic diet outpatient cystoscopy, will need to hold any antiplatelet send any anticoagulants for 1 week prior DVT prophylaxis PT D/W patient Discharge Minutes: 40 Manoj Euceda MD Jun 01, 2016 18:35
[2016-06-13] MEDS ORDERED: HYDR50TA15 PO (08:16)
[2016-06-13] MEDS ORDERED: AMIO200T PO (08:16)
[2016-06-13] MEDS ORDERED: POTA1TAB4 PO (08:16)
[2016-06-13] MEDS ORDERED: AMLO10TA2 PO (08:16)
[2016-06-13] MEDS ORDERED: CARV3.125 PO (08:16)
[2016-06-13] MEDS ORDERED: LOSA50TA PO (08:16)
[2016-06-13] MEDS ORDERED: GLIP5 PO (08:16)
[2016-06-13] MEDS ORDERED: SIMV40TA PO (08:16)
[2016-06-13] MEDS ORDERED: PLAV75TA29 PO (08:16)
[2016-06-13] MEDS ORDERED: THERTAB15 PO (08:16)
[2016-06-13] MEDS ORDERED: FINA5TAB2 PO (08:16)
[2016-06-13] MEDS ORDERED: DORZ2SOL EACH EYE (08:16)
[2016-06-13] MEDS ORDERED: Aspirin Chew PO (08:16)
[2016-06-13] MEDS ORDERED: FURO20TA PO (08:16)
--- NOTE | 2016-08-12 16:55 | HHI.DS ---
Discharge Summary Admission Date May 21, 2016 at 19:37 Discharge Date: Jun 01, 2016 Admitting Diagnosis chest pain, positive troponin, CHF (1) Chest pain in adult (2) S/P CABG x 2 (3) CAD (coronary artery disease) (4) Hyperlipemia (5) Hypertension (6) Elevated troponin (7) Postoperative anemia due to acute blood loss (8) Acute kidney injury (9) Diabetes mellitus (10) BPH (benign prostatic hyperplasia) Procedures 05/23/2016-STT 05/23/2016-Left heart catheterization, selective coronary angiography. 05/25/2016-Urgent Off-pump Coronary Artery Bypass Grafting x 2 with left internal mammary artery ([place]AGLAND) to left anterior descending (LAD), reverse saphenous vein graft to D1 2. Left Leg Endoscopic Vein [place] 3. Intraoperative Vein Mapping. Imaging Last Impressions Chest X-Ray 05/29/16 0000 Signed Impressions: Service Date/Time: Sunday, May 29, 2016 11:05 - CONCLUSION: Heart is enlarged. Small right pleural effusion. Kael Vargas MD Renal Ultrasound 05/28/16 0000 Signed Impressions: Service Date/Time: Saturday, May 28, 2016 14:51 - CONCLUSION: 1. Echogenic kidneys consistent with medical renal disease. 2. Hypoechoic lesion in the bladder measures 1.[address] urogram with delayed imaging of the bladder recommended to exclude underlying mass. 3. Prominent prostate. 4. Left renal cyst. Brent Drake MD Lower Extremity Ultrasound 05/24/16 0000 Signed Impressions: Service Date/Time: May 11:55 - CONCLUSION: Bilateral lower extremity venous mapping as detailed above. Trevin Hernandez Jr., MD Carotid Artery Ultrasound 05/24/16 0000 Signed Impressions: Service Date/Time: May 11:13 - CONCLUSION: No evidence of flow-limiting carotid stenosis. Thyroid nodules. Recommend thyroid sonography on an elective basis for further evaluation Maxi Gates MD Myocardial Perfusion Scan Nuc Med 05/23/16 0000 Signed Impressions: Service Date/Time: Monday, May 23, 2016 09:46 - CONCLUSION: Anterior wall perfusion defect at stress with redistribution at rest indicating ischemia. Mild left ventricular cardiomegaly with normal myocardial contraction. Ejection fraction 42%% RISK CATEGORY: Intermediate (1-3%% Annual Mortality Rate) Graham Gonzalez MD Pancreas Ultrasound 05/22/16 0000 Signed Impressions: Service Date/Time: Sunday, May 22, 2016 09:58 - CONCLUSION: 1. Pancreas appears unremarkable sonographically. 2. Echogenic kidney consistent with medical renal disease. Brent Drake MD Hospital Course This is a pleasant 80-year-old black male who has been in his usual state of health. He was working out in his yard and noted some midsternal chest pain he described the pain is a pressure sensation, non radiating. He did note some shortness of breath at the time that the pressure was there, the pain did wax and wane through the a.m. and he decided to come to the emergency room for evaluation. The patient denied any nausea, vomiting, headache, fever. He is fairly active, lives alone and is able to work in his yard. He denied any previous heart attacks, but he does have a history of congestive heart failure. The patient does note a mild cough which seems to be more seasonal he states, but currently is having no shortness of breath and no further symptoms of chest pain after being treated in the emergency room. DIAGNOSTIC DATA: White blood count 6.2, RBC 3.58, hemoglobin 11, initially 13.2 on admission, 132.2, platelet count 140, initially 168 on admission sodium 140, potassium 3.6, chloride 107 carbon dioxide 25.2, amnion gap 8, BUN 114, creatinine 1.53, random glucose 149, calcium 8.4, troponin low positive at 0.09 and 0.12 and 0.10, lipase 404. PT/INR 1. IMAGING STUDIES Chest x-ray is no acute disease and no acute change. Pt. was admitted for further evaluation and treatment for: Serial cardiac enzymes ordered. Cardiology consulted. BP uncontrolled, required medication adjustment. Had STT that was abnormal Cardiac catheterization done on 05/23/2016 showed EF of 42% with significant stenosis of the LAD and first diagonal. Cardiothoracic surgery was consulted. Patient was taken to the or by Dr. Brittani Pérez on 05/25 for urgent off-campus back CABG, he underwent a left [place]AG[place] completed to the LAD and a saphenous graft to D1. Patient was extubated within 24 hours and had subsequent chest removal. Patient did develop acute on chronic kidney injury with elevation in creatinine at 2.1. Dr. Méndez was consulted and ultrasound of the kidney showed a renal cyst and suspected echogenic mass of the bladder which was to be followed up on discharge. He was evaluated with Dr. Atkinson for renal mass and is to have follow up work up after rehab. Renal function improved, patient was making urine. CM consulted for dc planning, pt. discharged to [facility] for comprehensive rehab. Pt Condition on Discharge: Stable Discharge Disposition: Rehab Inpatient Discharge Instructions DIET: Follow Instructions for: Heart Healthy Diet, Diabetic Diet Activities you can perform: Weight Bearing as David Follow up Referrals: Cardiology with Niki Jesus MD PCP Follow-up with Paulo Vazquez MD Surgical with Elio Pérez MD Discontinued Medications: Aspirin (Aspirin) 325 Mg Tab 650 MG PO DAILY #30 Ref 0 TAB Metformin (Metformin) 500 Mg Tab 500 MG PO DAILY With a meal Blood Sugar Management #30 Ref 0 TAB Gaby Knight August 12, 2016 16:55
== END 2016-06-01 13:17 | DRG 233 ==
LOC: NEPC 14:12 → OBSVTOIN 19:37 → NEDA 19:37 → NEDH 05-22 01:13 → NEPHCDU 05-22 02:57 → HCIS 05-23 19:46 → HCPC 05-24 19:07 → HCVR 05-25 11:40 → HCPC 05-26 09:18
PROVIDERS: ADMIT Internal Medicine; ATTEND Internal Medicine
PROC: 4A023N7 Measurement of Cardiac Sampling and Pressure, Left Heart, Percutaneous Approach (ICD-10-PCS; 2016-05-23)
PROC: B2111ZZ Fluoroscopy of Multiple Coronary Arteries using Low Osmolar Contrast (ICD-10-PCS; 2016-05-23)
PROC: 02100Z9 Bypass Coronary Artery, One Artery from Left Internal Mammary, Open Approach (ICD-10-PCS; 2016-05-25)
PROC: 06BQ4ZZ Excision of Left Saphenous Vein, Percutaneous Endoscopic Approach (ICD-10-PCS; 2016-05-25)
PROC: 021009W Bypass Coronary Artery, One Artery from Aorta with Autologous Venous Tissue, Open Approach (ICD-10-PCS; principal; 2016-05-25 07:03)
DX: I25.110 Atherosclerotic heart disease of native coronary artery with unstable angina pectoris (principal); I50.33 Acute on chronic diastolic (congestive) heart failure; N17.9 Acute kidney failure, unspecified; I13.0 Hypertensive heart and chronic kidney disease with heart failure and stage 1 through stage 4 chronic kidney disease, or unspecified chronic kidney disease; E11.22 Type 2 diabetes mellitus with diabetic chronic kidney disease; I25.82 Chronic total occlusion of coronary artery; D64.9 Anemia, unspecified; N18.9 Chronic kidney disease, unspecified; D49.4 Neoplasm of unspecified behavior of bladder; N28.1 Cyst of kidney, acquired; N18.3 Chronic kidney disease, stage 3 (moderate); E78.5 Hyperlipidemia, unspecified; K21.9 Gastro-esophageal reflux disease without esophagitis; N40.0 Benign prostatic hyperplasia without lower urinary tract symptoms; Z79.84 Long term (current) use of oral hypoglycemic drugs; Z87.891 Personal history of nicotine dependence; Z91.11 Patient's noncompliance with dietary regimen
CPT/HCPCS: 71010; 71020; 76705; 76775; 76937; 78452; 80048; 80053; 80061; 81001; 82550; 82552; 82805; 82948; 83036; 83690; 83735; 83880; 83935; 84100; 84300; 84484; 85014; 85025; 85027; 85610; 85730; 86850; 86900; 86901; 86920; 87641; 93005; 93017; 93454; 93880; 93970; 93998; 94002; 94003; 94010; 94150; 94640; 94664; 94667; 94668; A9502; C1768; C1769; C1893; C9248; C9399; J0131; J0171; J0360; J0690; J1200; J1644; J1815; J1940; J2250; J2370; J2440; J2720; J2785; J3010; J3370; J3475; J3480; J7030; J7050; Q9967

== ENCOUNTER 2016-08-19 23:18 | Observation (INO) | payer MEDICARE, MEDICAID ==
[~2016-08-19 23:18] MED LIST changes: +AMIO200T PO; +Aspirin Chew PO; +CARV3.125 PO; +FURO20TA PO; -GLIP10TA6 PO; +GLIP5 PO; +HYDR50TA15 PO; -METF500T PO; +PLAV75TA29 PO; +THERTAB15 PO
[2016-08-19 23:19] VITALS: BP 192/88; PULSE 78; RESP 16; TEMP 98.5; O2SAT 95
[2016-08-20] VITALS (10 sets, daily range): BP systolic 125–176; BP diastolic 61–82; PULSE 57–77; RESP 18–20; TEMP 98.2–98.8; O2SAT 93–100
--- NOTE | 2016-08-20 01:57 | RADRPT ---
EXAM DATE/TIME: 08/20/2016 01:35 [place] COMPARISON: CHEST SINGLE AP, June 08, 2016, 13:19. INDICATIONS : Chest discomfort. Palpitations. MEDICAL HISTORY : Cardiovascular disease. SURGICAL HISTORY : CABG. ENCOUNTER: Initial ACUITY: 2 days PAIN SCORE: 8/10 LOCATION: Bilateral chest FINDINGS: There is evidence for prior median sternotomy. moderate cardiomegaly has not changed. Focal consolida tion is not seen. CONCLUSION: No change in cardiomegaly. Danie Zarate MD on August 20, 2016 at 1:55 Board Certified Radiologist. This report was verified electronically.
--- NOTE | 2016-08-20 01:59 | RADRPT ---
EXAM DATE/TIME: 08/20/2016 01:44 [place] COMPARISON: CT BRAIN W/O CONTRAST, March 25, 2012, 8:56. INDICATIONS : Dizziness. RADIATION DOSE: 45.18 CTDIvol (mGy) MEDICAL HISTORY : Gastroesophageal reflux disease. Congestive heart failure. Cardiovascular diseaseHypertension. Renal failure. Diabetes. SURGICAL HISTORY : CABG ENCOUNTER: Initial ACUITY: 1 day PAIN SCALE: 0/10 LOCATION: cranial TECHNIQUE: Multiple contiguous axial images were obtained of the head. Using automated exposure control and adj ustment of the mA and/or kV according to patient size, radiation dose was kept as low as reasonably a chievable to obtain optimal diagnostic quality images. FINDINGS: There is no evidence for intracranial hemorrhage, mass effect, mass lesions, or edema. The visualize d bony structures appear intact. Slight degree of brain atrophy is seen. Slight periventricular whit e matter changes are seen nonspecific mostly consistent with chronic small vessel ischemic changes. There are no signs of acute infarction for technique. There is also encephalomalacia in the left fron britt lobe are not changed. CONCLUSION: Slight atrophic, encephalomalacia, and small vessel ischemic changes without any evidence for acute hemorrhage or mass effect. Danie Zarate MD on August 20, 2016 at 1:56 Board Certified Radiologist. This report was verified electronically.
[2016-08-20 02:12] LABS: ALKALINE PHOSPHATASE 101 U/L (45-117); TOTAL BILIRUBIN ADULT 0.7 MG/DL (0.2-1.0)
[2016-08-20 02:16] LABS: ALT (GPT) 31 U/L (12-78); ANION GAP 11 MEQ/L (5-15); AST (GOT) 44 U/L (15-37); BICARBONATE 24.3 MEQ/L (21.0-32.0); BLOOD UREA NITROGEN 19 MG/DL (7-18); CHLORIDE 106 MEQ/L (98-107); GLOMERULAR FILTRATION RATE 47 ML/MIN (>89); POTASSIUM 3.8 MEQ/L (3.5-5.1); SODIUM (NA) 141 MEQ/L (136-145)
[2016-08-20 02:38] LABS: BASOPHIL # 0.1 TH/MM3 (0-0.2); BASOPHIL % 0.9 % (0.0-2.0); EOSINOPHIL # 0.2 TH/MM3 (0-0.4); EOSINOPHIL % 3.7 % (0.0-4.0); HEMO FLAGS DIFF FINAL; LYMPHOCYTE # 1.3 TH/MM3 (1.0-4.8); MEAN CELL VOLUME 87.4 FL (80.0-100.0); MEAN CORPUSCULAR HEMOGLOBIN 28.6 PG (27.0-34.0); MEAN CORPUSCULAR HGB CONC 32.7 % (32.0-36.0); MONO % 7.5 % (0.0-8.0); NEUT % 66.9 % (16.0-70.0); PLATELET COUNT 170 TH/MM3 (150-450); RED BLOOD COUNT 3.78 MIL/MM3 (4.50-5.90); RED CELL DISTRIBUTION WIDTH 15.1 % (11.6-17.2)
[2016-08-20 02:44] LABS: CREATINE KINASE 139 U/L (39-308)
[2016-08-20 02:45] LABS: APTT (PATIENT) 26.6 SEC (24.3-30.1); PROTHROMBIN TIME - PATIENT 10.9 SEC (9.8-11.6)
[2016-08-20 02:57] LABS: CKMB 1.5 NG/ML (0.5-3.6)
[2016-08-20] MEDS ORDERED: ASPIRIN 325 MG TAB PO ONE (03:15)
[2016-08-20] MEDS ORDERED: ONDANSETRON HCL 4 MG/2 ML VIAL IVP PRN (03:30)
[2016-08-20] MEDS ORDERED: ACETAMINOPHEN 325 MG TAB PO PRN ×2 (03:30)
[2016-08-20] MEDS ORDERED: SODIUM CHLORIDE 0.9% FLUSH 10 ML FLUSH IV FLUSH PRN (03:30)
[2016-08-20] MEDS ORDERED: SENNOSIDES 8.6 MG TAB PO PRN (03:30)
[2016-08-20] MEDS ORDERED: NALOXONE HCL 0.4 MG/ML AMP IV PRN (03:30)
--- NOTE | 2016-08-20 03:57 | PD ---
HPI Chief Complaint: Dizziness Time Seen by Provider: 01:23 Travel History International Travel<30 days: No Contact w/Intl Traveler<30days: No Traveled to known affect area: No History of Present Illness HPI 81-year-old male presents with dizziness that started at 4 PM this evening. He states when it got worse he elected to come here. He states he feels like his gonna pass out. He states when he has had this before that is related to his blood pressure. He states he checked his sugar and it was 120 range. He denies any specific pain or other concurrent complaints. He states he recently had bypass heart surgery in May. He states Dr. james is his primary care physician. Quality is lightheaded. Severity is worsening. PFSH Past Medical History Hx Anticoagulant Therapy: Yes Asthma: No Blood Disorders: No Anxiety: No Depression: No Heart Rhythm Problems: No Cancer: No Cardiovascular Problems: Yes (heart surgery) High Cholesterol: Yes Chemotherapy: No Chest Pain: Yes Congestive Heart Failure: Yes COPD: No Cerebrovascular Accident: No Coronary Artery Disease: Yes (CABG) Diabetes: Yes Patient Takes Glucophage: No Diminished Hearing: No Endocrine: Yes Gastrointestinal Disorders: Yes GERD: Yes Glaucoma: No Genitourinary: Yes (PROSTATE) Hepatitis: No Hiatal Hernia: No Hypertension: Yes Immune Disorder: No Kidney Stones: No Musculoskeletal: No Neurologic: No Psychiatric: Yes Reproductive: No Respiratory: No Migraines: Yes Radiation Therapy: No Renal Failure: Yes Seizures: No Sleep Apnea: No Thyroid Disease: No Ulcer: No Tetanus Vaccination: < 5 Years Influenza Vaccination: No Past Surgical History Abdominal Surgery: Yes (bowel surgery) AICD: No Arteriovenous Shunt: No Cardiac Surgery: Yes (2017) Ear Surgery: No Endocrine Surgery: No Eye Surgery: No Genitourinary Surgery: Yes (prostate) Gynecologic Surgery: No Insulin Pump: No Joint Replacement: No Oral Surgery: Yes (TONSILLECTOMY, ADNOIDECTOMY) Pacemaker: No Thoracic Surgery: No Other Surgery: Yes ("SOME BOWEL SURG") Social History Alcohol Use: No Tobacco Use: No Substance Use: No Allergies-Medications (Allergen,Severity, Reaction): Coded Allergies: No Known Allergies (Verified , 08/20/16) Reported Meds & Prescriptions Reported Meds & Active Scripts Active Thera/Beta-Carotene (Multiple Vitamin) 1 Tab Tab 1 Tab PO DAILY Glucotrol (Glipizide) 5 Mg Tab 5 Mg PO DAILYAC Furosemide 20 Mg Tab 20 Mg PO BID@09,16 Hydralazine (Hydralazine HCl) 50 Mg Tab 50 Mg PO QID Take with a meal Plavix (Clopidogrel Bisulfate) 75 Mg Tab 75 Mg PO DAILY Coreg (Carvedilol) 3.125 Mg Tab 3.125 Mg PO Q12HR [Aspirin Chew] 81 MG Chew 81 Mg PO DAILY Amiodarone (Amiodarone HCl) 200 Mg Tab 200 Mg PO Q12HR Finasteride 5 Mg Tab 5 Mg PO DAILY Do not crush. Dorzolamide Opth Drops (Dorzolamide HCl) 2% Soln 1 Drop EACH EYE BID Amlodipine (Amlodipine Besylate) 10 Mg Tab 10 Mg PO DAILY Simvastatin 40 Mg Tab 40 Mg PO HS K-Tab (Potassium Chloride) 20 Meq Tab 20 Meq PO DAILY Losartan (Losartan Potassium) 50 Mg Tab 100 Mg PO DAILY Review of Systems Except as stated in HPI: all other systems reviewed are Neg Physical Exam Narrative GENERAL: Well-nourished, well-developed patient. SKIN: Warm and dry. HEAD: Normocephalic and atraumatic. EYES: No injection or drainage. ENT: No nasal drainage noted. NECK: Supple, trachea midline. CARDIOVASCULAR: Regular rate and rhythm RESPIRATORY: Breath sounds equal bilaterally. No accessory muscle use. GASTROINTESTINAL: Abdomen soft, non-tender, nondistended. NEUROLOGICAL: Awake and alert. Motor and sensory grossly within normal limits. Normal speech. Data Data Last Documented VS Vital Signs Date Time Temp Pulse Resp B/P Pulse Ox O2 Delivery O2 Flow Rate FiO2 08/20/16 03:12 77 18 176/82 97 Room Air 08/19/16 23:19 98.5 Orders Magnesium (Mg) (08/20/16 01:14) Phosphorus (Po4) (08/20/16 01:14) Complete Blood Count With Diff (08/20/16 01:14) Comprehensive Metabolic Panel (08/20/16 01:14) Urinalysis - C+S If Indicated (08/20/16 01:14) Act Partial Throm Time (Ptt) (08/20/16 01:14) Prothrombin Time / Inr (Pt) (08/20/16 01:14) Ct Brain W/O Iv Contrast(Rout) (08/20/16 ) Chest, Single Ap (08/20/16 ) Electrocardiogram (08/20/16 ) Iv Access Insert/Monitor (08/20/16 01:14) Ecg Monitoring (08/20/16 01:14) Oximetry (08/20/16 01:14) Ckmb (Isoenzyme) Profile (08/20/16 01:26) Troponin I (08/20/16 01:26) CKMB (08/20/16 01:25) CKMB% (08/20/16 01:25) Aspirin (Aspirin) (08/20/16 03:15) Admit Order (Ed Use Only) (08/20/16 03:19) Labs Laboratory Tests Test 08/20/16 08/20/16 01:25 02:25 Sodium Level 141 MEQ/L Potassium Level 3.8 MEQ/L Chloride Level 106 MEQ/L Carbon Dioxide Level 24.3 MEQ/L Anion Gap 11 MEQ/L Blood Urea Nitrogen 19 MG/DL Creatinine 1.70 MG/DL Estimat Glomerular Filtration 47 ML/MIN Rate Random Glucose 96 MG/DL Calcium Level 9.9 MG/DL Phosphorus Level 3.0 MG/DL Magnesium Level 2.0 MG/DL Total Bilirubin 0.7 MG/DL Aspartate Amino Transf 44 U/L (AST/SGOT) Alanine Aminotransferase 31 U/L (ALT/SGPT) Alkaline Phosphatase 101 U/L Total Creatine Kinase 139 U/L Creatine Kinase MB 1.5 NG/ML Troponin I 0.08 NG/ML Total Protein 8.7 GM/DL Albumin 4.3 GM/DL White Blood Count 6.0 TH/MM3 Red Blood Count 3.78 MIL/MM3 Hemoglobin 10.8 GM/DL Hematocrit 33.0 % Mean Corpuscular Volume 87.4 FL Mean Corpuscular Hemoglobin 28.6 PG Mean Corpuscular Hemoglobin 32.7 % Concent Red Cell Distribution Width 15.1 % Platelet Count 170 TH/MM3 Mean Platelet Volume 8.8 FL Neutrophils (%) (Auto) 66.9 % Lymphocytes (%) (Auto) 21.0 % Monocytes (%) (Auto) 7.5 % Eosinophils (%) (Auto) 3.7 % Basophils (%) (Auto) 0.9 % Neutrophils # (Auto) 4.0 TH/MM3 Lymphocytes # (Auto) 1.3 TH/MM3 Monocytes # (Auto) 0.5 TH/MM3 Eosinophils # (Auto) 0.2 TH/MM3 Basophils # (Auto) 0.1 TH/MM3 CBC Comment DIFF FINAL Differential Comment Prothrombin Time 10.9 SEC Prothromb Time International 1.0 RATIO Ratio Activated Partial 26.6 SEC Thromboplast Time MDM Medical Decision Making Medical Screen Exam Complete: Yes Emergency Medical Condition: Yes Medical Record Reviewed: Yes (past history confirmed) Interpretation(s) EKG is normal sinus rhythm at [address] segment elevation or depression CBC & BMP Diagram 08/20/16 01:25 08/20/16 02:25 Last [address] 08/20/16 0000 Signed Impressions: Service Date/Time: Saturday, August 20, 2016 01:44 - CONCLUSION: Slight atrophic, encephalomalacia, and small vessel ischemic changes without any evidence for acute hemorrhage or mass effect. Danie Zarate MD Chest X-Ray 08/20/16 0000 Signed Impressions: Service Date/Time: Saturday, August 20, 2016 01:35 - CONCLUSION: No change in cardiomegaly. Danie Zarate MD Renal insufficiency at baseline, mild troponin elevation Differential Diagnosis Anemia, renal failure, atypical cardiac, intracranial Narrative Course Will check blood work, imaging and reevaluate Given risk factors and mild troponin elevation Will place in observation for cardiac telemetry and trending. Aspirin given. Patient agrees to observation Physician Communication Physician Communication christa soto agrees to admit with dr alonzo Diagnosis Primary Impression: Dizziness Additional Impression: Elevated troponin Admitting Information Admitting Physician Requests: Observation Tahmina Cohen MD August 20, 2016 03:57
[2016-08-20] MEDS: SODIUM CHLOR 0.9% 1000 ML INJ 1,000 ML IV SCH (04:14)
[2016-08-20] MEDS: HEPARIN SODIUM - SQ 10,000 UNITS/ML VIAL SQ SCH ×2 (04:14→17:17)
[2016-08-20 05:17] LABS: BLOOD, URINE NEG (NEG); COMMENT (UR) CULT NOT INDICATED; CULTURE IF INDICATED CULT NOT INDICATED; GLUCOSE,URINE NEG (NEG); KETONE, URINE NEG (NEG); MUCUS URINE FEW /lpf (OCC); NITRITE,URINE NEG (NEG); PH, URINE 6.5 (5.0-8.5); SQUAMOUS EPITHELIAL CELL URINE <1 /hpf (0-5); URINE COLOR YELLOW (YELLW/STRAW)
[2016-08-20] MEDS ORDERED: GLUCAGON 1 MG/ML VIAL OTHER PRN (08:30)
[2016-08-20] MEDS ORDERED: DEXTROSE 50% IN WATER 50 ML VIAL(D50) IV PRN (08:30)
[2016-08-20] MEDS ORDERED: LOSARTAN 50 MG TAB PO SCH (09:00)
[2016-08-20] MEDS: SODIUM CHLORIDE 0.9% FLUSH 10 ML FLUSH IV FLUSH SCH ×2 (09:00→21:48)
[2016-08-20] MEDS ORDERED: AMIODARONE 200 MG TAB PO SCH (09:00)
[2016-08-20] MEDS: DORZOLAMIDE 2% OPTH SOLN 200 DROP/10 ML BTLO EACH EYE SCH ×2 (09:00→21:49)
--- NOTE | 2016-08-20 09:15 | HHI.HP ---
[facility]Staff Admission Diagnosis dizziness Diagnoses: Chief Complaint: dizziness Travel History International Travel<30 Days: No Contact w/Intl Traveler <30 Da: No Traveled to Known Affected Are: No History of Present Illness This an 81-year-old black male, past medical history of CAD, hypertension, hyperlipidemia, type 2 diabetes. Patient was recently admitted in May for chest pain, underwent cardiac catheter and was found with significant stenosis of LAD and first diagonal. On 05/25/2016 he underwent CABG 2. Patient went to rehabilitation where he did well. He was eventually discharged. Patient returns to the hospital complaining of dizziness that started yesterday afternoon. Patient indicates he was sitting when he suddenly felt dizzy as if he was going to pass out, the room was not spinning, dizziness did not occur with head movement. He denies any chest pain, no palpitations, no headaches, had blurry vision, some shortness of breath. Indicates is compliant with medications. He checked his blood glucose, it was 120. Patient was evaluated in emergency room, CBC was unremarkable, some mild anemia, hemoglobin 10.8, hematocrit 33.BMP remarkable for creatinine 1.70, patient has underlying CK D however this is improved from previous admission. Troponin was mildly elevated 0.08. Blood pressure was elevated, 192/88. He has slowly come down over the last couple of hours. Patient does have uncontrolled blood pressure and during previous admission require adjustment of multiple medications. Indicates he is compliant with medication and takes them at the same time. States that his diet is generally healthy. He was recently started on glipizide. Patient is now evaluated. Dr. Jesus also at bedside evaluating patient. Patient is resting comfortably, denies any dizziness at this time. Patient is asking whether he can travel to [place] as his mother who was 103 recently . Patient informed that he will need to be stabilized and evaluated after his discharge whether he is safe for travel. Patient is admitted for further evaluation. Review of Systems Constitutional: COMPLAINS OF: Dizziness, DENIES: Diaphoretic episodes, Fatigue , Fever, Weight gain, Weight loss, Chills, Change in appetite, Night Sweats Endocrine: DENIES: Heat/cold intolerance, Polydipsia, Polyuria, Polyphagia Eyes: DENIES: Blurred vision, Diplopia, Eye inflammation, Eye pain, Vision loss , Photosensitivity, Double Vision Ears, nose, mouth, throat: DENIES: Tinnitus, Hearing loss, Vertigo, Nasal discharge, Oral lesions, Throat pain, Hoarseness, Ear Pain, Running Nose, Epistaxis, Sinus Pain, Toothache, Odynophagia Respiratory: DENIES: Apneas, Cough, Snoring, Wheezing, Hemoptysis, Sputum production, Shortness of breath Cardiovascular: COMPLAINS OF: Lower Extremity Edema, DENIES: Chest pain, Palpitations, Syncope, Dyspnea on Exertion, PND, Orthopnea, Claudication Gastrointestinal: DENIES: Abdominal pain, Black stools, Bloody stools, Constipation, Diarrhea, Nausea, Vomiting, Difficulty Swallowing, Anorexia Genitourinary: DENIES: Sexual dysfunction, Urinary frequency, Urinary incontinence, Urgency, Hematuria, Dysuria, Nocturia, Penile Discharge, Testicular Pain, Testicular Swelling Musculoskeletal: DENIES: Joint pain, Muscle aches, Stiffness, Joint Swelling, Back pain, Neck pain Integumentary: DENIES: Abnormal pigmentation, Nail changes, Pruritus, Rash Hematologic/lymphatic: DENIES: Bruising, Lymphadenopathy Immunologic/allergic: DENIES: Eczema, Urticaria Neurologic: DENIES: Abnormal gait, Headache, Localized weakness, Paresthesias, Seizures, Speech Problems, Tremor, Poor Balance Psychiatric: DENIES: Anxiety, Confusion, Mood changes, Depression, Hallucinations, Agitation, Suicidal Ideation, Homicidal Ideation, Delusions Past Family Social History Past Medical History 1. Diabetes with oral hypoglycemics 2. Hyperlipidemia 3. Gastroesophageal reflux disease 4. Hypertension 5. Chronic kidney disease. 6. CAD Past Surgical History Past Surgical History 05/25-S/P Urgent Off-pump Coronary Artery Bypass Grafting x 2 with left internal mammary artery ([place]) to left anterior descending (LAD), reverse saphenous vein graft to D1 Left Leg Endoscopic Vein [place]/Intraoperative Vein Mapping. 05/23 S/P cardiac cath -Heart catheterization showed ejection fraction of 42% and significant stenosis of the LAD and first diagonal Prostate surgery. Laparoscopic cholecystectomy Tonsillectomy. Adenoidectomy Bowel surgery Reported Medications Reported Meds & Active Scripts Active Thera/Beta-Carotene (Multiple Vitamin) 1 Tab Tab 1 Tab PO DAILY Glucotrol (Glipizide) 5 Mg Tab 5 Mg PO DAILYAC Furosemide 20 Mg Tab 20 Mg PO BID@09,16 Hydralazine (Hydralazine HCl) 50 Mg Tab 50 Mg PO QID Take with a meal Plavix (Clopidogrel Bisulfate) 75 Mg Tab 75 Mg PO DAILY Coreg (Carvedilol) 3.125 Mg Tab 3.125 Mg PO Q12HR [Aspirin Chew] 81 MG Chew 81 Mg PO DAILY Amiodarone (Amiodarone HCl) 200 Mg Tab 200 Mg PO Q12HR Finasteride 5 Mg Tab 5 Mg PO DAILY Do not crush. Dorzolamide Opth Drops (Dorzolamide HCl) 2% Soln 1 Drop EACH EYE BID Amlodipine (Amlodipine Besylate) 10 Mg Tab 10 Mg PO DAILY Simvastatin 40 Mg Tab 40 Mg PO HS K-Tab (Potassium Chloride) 20 Meq Tab 20 Meq PO DAILY Losartan (Losartan Potassium) 50 Mg Tab 100 Mg PO DAILY Allergies: Coded Allergies: No Known Allergies (Verified , 08/20/16) Active Ordered Medications Inpatient Medications Acetaminophen (Tylenol) 650 mg Q6H PRN PO PAIN SCALE 1 TO 2; Start 08/20/16 at 03:30 Amiodarone HCl (Cordarone) 200 mg Q12HR PO ; Start 08/20/16 at 09:00; Stop 08/20 at 09:00; Status DC Amlodipine Besylate (Norvasc) 10 mg DAILY PO ; Start 08/20/16 at 09:00 Aspirin (Aspirin Chew) 81 mg DAILY PO ; Start 08/21/16 at 09:00 Aspirin 325 mg 325 mg ONCE ONCE PO Last administered on 08/20/16t 03:12; Start 08/20/16 at 03:15; Stop 08/20/16 at 03:16; Status DC Carvedilol (Coreg) 3.125 mg Q12HR PO ; Start 08/20/16 at 09:00 Clopidogrel Bisulfate (Plavix) 75 mg DAILY PO ; Start 08/20/16 at 09:00 Dextrose (D50w (Vial) Inj) 50 ml UNSCH PRN IV HYPOGLYCEMIA-SEE COMMENTS; Start 08/20/16 at 08:30 Dorzolamide HCl (Trusopt 2% Opth Soln) 1 drop BID EACH EYE ; Start 08/20/16 at 09:00 Finasteride (Proscar) 5 mg DAILY PO ; Start 08/20/16 at 09:00 Furosemide (Lasix) 20 mg BID@,16 PO ; Start 08/20/16 at 09:00 Glipizide (Glucotrol) 5 mg DAILYAC PO ; Start 08/21/16 at 08:00; Stop 08/21/16 at 08:00; Status DC Glucagon (Glucagon Inj) 1 mg UNSCH PRN OTHER HYPOGLYCEMIA-SEE COMMENTS; Start 08/20/16 at 08:30 Heparin Sodium (Porcine) (Heparin Inj) 5,000 units Q12H SQ Last administered on 08/20/16 04:14; Start 08/20/16 at 04:00 Hydralazine HCl (Apresoline) 50 mg QID PO ; Start 08/20/16 at 09:00 Insulin Aspart (NovoLOG SUPPLEMENTAL SCALE) 1 ACHS SLIDING SCALE SQ ; Start at 11:00 Losartan Potassium (Cozaar) 100 mg DAILY PO ; Start 08/20/16 at 09:00 Naloxone HCl (Narcan Inj) 0.4 mg UNSCH PRN IV SEE LABEL COMMENTS; Start at 03:30 Ondansetron HCl (Zofran Inj) 4 mg Q6H PRN IVP NAUSEA OR VOMITING; Start at 03:30 Potassium Chloride (KCl) 20 meq DAILY PO ; Start 08/20/16 at 09:00 Pravastatin Sodium (Pravachol) 80 mg HS PO ; Start 08/20/16 at 21:00 Sennosides (Senokot) 17.2 mg Q12H PRN PO CONSTIPATION; Start 08/20/16 at 03:30 Sodium Chloride (NS 1000 ml Inj) 1,000 ml @ 30 mls/hr Q24H IV Last administered on 08/20/16 04:14; Start 08/20/16 at 03:19 Sodium Chloride (NS Flush) 2 ml BID IV FLUSH ; Start 08/20/16 at 09:00 Family History Hypertension. Mother recently at age 103 Social History The patient denies any alcohol use. No illicit drugs. He has previous tobacco use when he was a young male, but has not smoked a long time. The patient lives alone in his own home. He does have family support outside of the home. Physical Exam Vital Signs Vital Signs Date Time Temp Pulse Resp B/P Pulse Ox O2 Delivery O2 Flow Rate FiO2 08/20/16 07:30 98.8 61 20 156/72 95 08/20/16 06:47 21 08/20/16 05:24 98.3 71 18 159/82 93 5/22/17 05:04 68 18 168/70 99 Room Air 08/20/16 03:12 77 18 176/82 97 Room Air 08/20/16 02:08 100 Room Air 08/19/16 23:19 98.5 78 16 192/88 95 Room Air Physical Exam GENERAL: This is a well-nourished, well-developed patient, in no apparent distress. SKIN: No rashes, ecchymoses or lesions. Cool and dry. HEAD: Atraumatic. Normocephalic. No temporal or scalp tenderness. EYES: Pupils equal round and reactive. Extraocular motions intact. No scleral icterus. No injection or drainage. ENT: Nose without bleeding, purulent drainage or septal hematoma. Throat without erythema, tonsillar hypertrophy or exudate. Uvula midline. Airway patent. NECK: Trachea midline. No JVD or lymphadenopathy. Supple, nontender, no meningeal signs. CARDIOVASCULAR: Regular rate and rhythm without murmurs, gallops, or rubs. RESPIRATORY: Clear to auscultation. Breath sounds equal bilaterally. No wheezes , rales, or rhonchi. GASTROINTESTINAL: Abdomen soft, non-tender, nondistended. No hepato-splenomegaly , or palpable masses. No guarding. MUSCULOSKELETAL: Extremities without clubbing, cyanosis. Trace pedal edema, left greater than right. Pedal pulses 1+ bilaterally. No joint tenderness, effusion, or edema noted. No calf tenderness. Negative Homans sign bilaterally. NEUROLOGICAL: Awake alert oriented 3. No focal deficit. Laboratory Laboratory Tests Test 08/20/16 08/20/16 08/20/16 08/20/16 01:25 02:25 04:41 08:04 Sodium Level 141 Potassium Level 3.8 Chloride Level 106 Carbon Dioxide Level 24.3 Anion Gap 11 Blood Urea Nitrogen 19 Creatinine 1.70 Estimat Glomerular Filtration 47 Rate Random Glucose 96 Calcium Level 9.9 Phosphorus Level 3.0 Magnesium Level 2.0 Total Bilirubin 0.7 Aspartate Amino Transf 44 (AST/SGOT) Alanine Aminotransferase 31 (ALT/SGPT) Alkaline Phosphatase 101 Total Creatine Kinase 139 Creatine Kinase MB 1.5 Troponin I 0.08 0.09 Total Protein 8.7 Albumin 4.3 White Blood Count 6.0 Red Blood Count 3.78 Hemoglobin 10.8 Hematocrit 33.0 Mean Corpuscular Volume 87.4 Mean Corpuscular Hemoglobin 28.6 Mean Corpuscular Hemoglobin 32.7 Concent Red Cell Distribution Width 15.1 Platelet Count 170 Mean Platelet Volume 8.8 Neutrophils (%) (Auto) 66.9 Lymphocytes (%) (Auto) 21.0 Monocytes (%) (Auto) 7.5 Eosinophils (%) (Auto) 3.7 Basophils (%) (Auto) 0.9 Neutrophils # (Auto) 4.0 Lymphocytes # (Auto) 1.3 Monocytes # (Auto) 0.5 Eosinophils # (Auto) 0.2 Basophils # (Auto) 0.1 CBC Comment DIFF FINAL Differential Comment Prothrombin Time 10.9 Prothromb Time International 1.0 Ratio Activated Partial 26.6 Thromboplast Time Urine Color YELLOW Urine Turbidity CLEAR Urine pH 6.5 Urine Specific [place] 1.010 Urine Protein 30 Urine Glucose (UA) NEG Urine Ketones NEG Urine Occult Blood NEG Urine Nitrite NEG Urine Bilirubin NEG Urine Urobilinogen LESS THAN 2.0 Urine Leukocyte Esterase NEG Urine RBC LESS THAN 1 Urine WBC LESS THAN 1 Urine Squamous Epithelial <1 Cells Urine Mucus FEW Microscopic Urinalysis Comment CULT NOT INDICATED Result Diagram: 08/20/16 0225 08/20/16 0125 Imaging Last Impressions Head CT 08/20/16 0000 Signed Impressions: Service Date/Time: Saturday, August 20, 2016 01:44 - CONCLUSION: Slight atrophic, encephalomalacia, and small vessel ischemic changes without any evidence for acute hemorrhage or mass effect. Danie Zarate MD Chest X-Ray 08/20/16 0000 Signed Impressions: Service Date/Time: Saturday, August 20, 2016 01:35 - CONCLUSION: No change in cardiomegaly. Danie Zarate MD Assessment and Plan Problem List: (1) Dizziness (2) Elevated troponin (3) Stage 3 chronic kidney disease (4) Hypertension (5) Hyperlipemia (6) CAD (coronary artery disease) (7) Diabetes mellitus (8) S/P CABG x 2 (9) CHF (congestive heart failure) Assessment and Plan Admit to Dr. Fuller 81-year-old male, with history of CAD, recently admitted in May for chest pain. Found with significant stenosis of LAD and first diagonal. Status post CABG 2 05/25/2016. Presented to emergency room complaining of dizziness and mild shortness of breath. Blood pressure uncontrolled on admission. Patient on multiple antihypertensive agents -Continuous cardiac telemetry -Cardiology input appreciated, case discussed with Dr. Jesus. Recommends to discontinue amiodarone at this time. -We will hold glipizide at this time as it's a new medication. We will order hemoglobin A1c to determine whether he needs to continue on oral hypoglycemic. -Orthostatics every shift Blood pressure appears to be coming down, we will resume home medications Elevated troponin, appears to be at baseline. Patient with underlying kidney disease serial troponins to continue Continue with Plavix Hypertension initially uncontrolled, now improving Continue home medications Type 2 diabetes, on oral hypoglycemics Accu-Cheks before meals and at bedtime with insulin therapy as needed Hold glipizide at this time Hemoglobin A1c, we will follow up on results Hyperlipidemia, stable Continue home medication Chronic kidney disease stage III, stable Continue to monitor renal function Avoid nephrotoxic agents Chronic CHF stable Continue Lasix 20 mg by mouth twice a day -Monitor renal function Home medications reviewed, initiated as indicated Heparin for DVT prophylaxis Plan of care has been discussed with the patient, attending and registered nurse. Further management of the patient will be dependent on the hospital course Physical therapy for evaluation and treatment Patient was seen by myself and Dr. Sosa, this H&P is written on her behalf Problem Qualifiers (1) Hypertension: Qualified Code: I10 - Essential hypertension (2) Hyperlipemia: Qualified Code: E78.5 - Hyperlipidemia, unspecified hyperlipidemia type (3) CAD (coronary artery disease): Qualified Code: I25.10 - Coronary artery disease involving [place] coronary artery of [place] heart without angina pectoris (4) Diabetes mellitus: Qualified Code: E11.59 - Type 2 diabetes mellitus with other circulatory complication, unspecified detention insulin use status (5) CHF (congestive heart failure): Qualified Code: I50.9 - Chronic congestive heart failure, unspecified congestive heart failure type Gaby Knight August 20, 2016 09:14
--- NOTE | 2016-08-20 09:56 | MB ---
cc: FARSHAD JEFFREY MD DATE OF CONSULTATION 08/20/2016 REASON FOR CONSULTATION Dizziness. HISTORY OF PRESENT ILLNESS Mr. Zackary Castillo is an 81-year-old man who is status post CABG in May of 2016 with a RAGLAND to LAD, SVG to diagonal and an EF of 40% by nuclear stress test. He does also have a history of hypertension, hyperlipidemia and diabetes. The patient presented this visit for dizziness. He reports that he has had frequent episodes of dizziness. It does not appear related to turning or twisting his head. There is also no correlation to change in positions such as laying to standing. He reports he is having dizzy spells throughout the day and in his opinion it does appear to be related to his medications. He says he takes his meds and subsequently an hour or so later feels dizzy. He does report that he has been consistent with his meds and takes them as scheduled. OUTPATIENT MEDICATIONS 1. Tylenol. 2. Amiodarone. 3. Amlodipine. 4. Aspirin. 5. Coreg. 6. Plavix. 7. Trusopt. 8. Proscar. 9. Lasix. 10. Glipizide. 11. Losartan. 12. Potassium. 13. Simvastatin. FAMILY HISTORY Positive for hypertension. SOCIAL HISTORY The patient is a former smoker. REVIEW OF SYSTEMS Except as mentioned in the HPI, all 12 systems are negative. PHYSICAL EXAMINATION VITAL SIGNS: 98.8, 61, 20, 156/72. GENERAL: He is an overweight man who is in no apparent distress. NECK: His neck is free from JVD. LUNGS: Bilaterally clear to auscultation. CARDIOVASCULAR EXAMINATION: He has a normal S1 and S2. I did not appreciate any murmurs, rubs or gallops. ABDOMEN: The abdomen is soft. EXTREMITIES: The extremities are free from edema. LABORATORY FINDINGS Significant for creatinine of 1.7. Troponin of 0.09. TELEMETRY - Shows normal sinus rhythm. IMPRESSIONS Dizziness - The patient is a couple months status post CABG. He has been started on a lot of medications and this, however, appears to be related to his glipizide. Thus, after speaking with the primary, they are going to adjust those meds specifically. I am also going to work on eliminating some of his cardiac medications as appropriate. He will be observed on telemetry. There is no overt cardiac etiology to his dizziness at this time. Of note, the patient does specifically deny any syncope. Dysrhythmia - The patient can stop his amiodarone. Hypertension - The patient's blood pressure remains a bit labile and within was with a systolic in the 190s late last night. I again emphasized the importance of compliance with the sodium restrictions and taking his medications on time. Elevated troponin - The patient does have a chronic elevation in his troponin. I suspect this is from his CKD and labile blood pressure. This does appear to be within his normal range. DISPOSITION - It is reasonable for the patient to be discharged home after his observation period. Sincerely, Farshad Jeffrey M.D. OSIRIS/MARIKA /9:28 AM /9:47 AM
[2016-08-20] MEDS: hydrALAZINE HCL 50 MG TAB PO SCH ×4 (10:16→21:48)
[2016-08-20] MEDS: FUROSEMIDE 20 MG TAB PO SCH ×2 (10:16→17:17)
[2016-08-20] MEDS: POTASSIUM CHLORIDE 20 MEQ CONTROLLED RELEASE TAB PO SCH (10:16)
[2016-08-20] MEDS: CARVEDILOL 3.125 MG TAB PO SCH ×2 (10:16→21:48)
[2016-08-20] MEDS: CLOPIDOGREL 75 MG TAB PO SCH (10:16)
[2016-08-20] MEDS: FINASTERIDE 5 MG TAB PO SCH (10:17)
[2016-08-20] MEDS: INSULIN ASPART SUPPLEMENTAL SCALE SQ SCH ×3 (11:00→21:55)
--- NOTE | 2016-08-20 12:19 | RADRPT ---
EXAM DATE/TIME: 08/20/2016 10:39 [facility] COMPARISON: No previous studies available for comparison. INDICATIONS : Syncope. MEDICAL HISTORY : Hypercholesterolemia. Hypertension. Gastroesophageal reflux disease. Glaucoma. CHF. Coronary artery d isease. Anticoagulation therapy. History of blood clot. Hyperlipidemia. Chest pain. Dyspnea. Renal fa ilure. Diabetes. SURGICAL HISTORY : Tonsillectomy. Heart Surgery. CABG. Cardiac surgery 2017. Bowel surgery. ENCOUNTER: Initial ACUITY: 1 day PAIN SCORE: 2/10 LOCATION: Bilateral Neck. PEAK SYSTOLIC VELOCITIES (cm/sec): ICA/CCA RATIO: Right: 2.0 Left: 0.8 ICA: Right: 128.6 Left: 100.0 CCA: Right: 64.4 Left: 123.3 ECA: Right: 211.2 Left: 160.5 VERTEBRAL: Right: 93.6 antegrade Left: 69.1 antegrade Elevated flow velocities and ICA/CCA ratios have been found to correlate with increased degrees of vessel stenosis, calculated as percentage of diameter relative to a normal segment of distal ICA/CCA FINDINGS: RIGHT CAROTID: Mild flow velocity acceleration in the proximal right ICA likely indicative of at least moderate sten otic narrowing, potentially 50-60%. LEFT CAROTID: No significant stenosis is visualized. The waveforms are within normal limits. VERTEBRAL ARTERIES: Antegrade flow is seen in both vertebral arteries. MISCELLANEOUS: Right thyroid nodules CONCLUSION: Moderate right carotid bifurcation stenosis. More definitive anatomic evaluation could be achieved wi CTA examination of the arch and carotids indicated. Right thyroid nodules. Recommend thyroid sonography for further evaluation Maxi Gates MD on August 20, 2016 at 11:57 Board Certified Radiologist. This report was verified electronically.
--- NOTE | 2016-08-20 13:15 | EKG ---
Date Performed: 08/20/2016 Time Performed: 01:24:09 PTAGE: 81 years EKG: Sinus rhythm LEFT VENTRICULAR HYPERTROPHY AND ST-T CHANGE ABNORMAL ECG INTERPRETATION BASED ON A DEFAULT AGE OF [address]-T wave changes have markedly improved from the prior tracing. NO PREVIOUS TRACING DOCTOR: Roque Castro Interpretating Date/Time 08/20/2016 13:13:31
--- NOTE | 2016-08-20 13:20 | EKG ---
Date Performed: 08/20/2016 Time Performed: 06:07:57 PTAGE: 81 years EKG: Sinus rhythm WITH SINUS ARRHYTHMIA POSSIBLE LEFT VENTRICULAR HYPERTROPHY POSSIBLE INFERIOR MYOCARDIAL INFARCTION ABNORMAL ECG Compared to prior tracing no significant change PREVIOUS TRACING : 08/20/2016.24.09 DOCTOR: Roque Castro Interpretating Date/Time 08/20/2016 13:17:26
[2016-08-20 18:04] LABS: HEMOGLOBIN A1b 1.3 %; HEMOGLOBIN Ao 86.7 %; HEMOGLOBIN LA1C 1.8 %; HEMOGLOBIN P3 3.4 %
[2016-08-20] MEDS ORDERED: PRAVASTATIN SOD 80 MG TAB PO SCH (21:00)
[2016-08-21] VITALS: BP 173/74; PULSE 59; RESP 18; TEMP 98.8; O2SAT 96
[2016-08-21 02:50] VITALS: PULSE 64
[2016-08-21 04:10] VITALS: BP 176/77; PULSE 62; RESP 18; TEMP 98.6; O2SAT 97
[2016-08-21] MEDS: HEPARIN SODIUM - SQ 10,000 UNITS/ML VIAL SQ SCH (04:21)
[2016-08-21] MEDS: SODIUM CHLOR 0.9% 1000 ML INJ 1,000 ML IV SCH (04:21)
[2016-08-21] MEDS: INSULIN ASPART SUPPLEMENTAL SCALE SQ SCH ×2 (06:19→11:00)
[2016-08-21 07:25] VITALS: BP_SYST 158; BP_SYST 163; BP_SYST 169; BP_DIAS 70; BP_DIAS 75; BP_DIAS 77; PULSE 60; RESP 21; TEMP 98.5; O2SAT 94
[2016-08-21 07:27] LABS: HEMATOCRIT 31.1 % (39.0-51.0); MEAN CELL VOLUME 86.7 FL (80.0-100.0); MEAN CORPUSCULAR HEMOGLOBIN 29.7 PG (27.0-34.0); MEAN CORPUSCULAR HGB CONC 34.2 % (32.0-36.0); PLATELET COUNT 168 TH/MM3 (150-450); RED BLOOD COUNT 3.59 MIL/MM3 (4.50-5.90); RED CELL DISTRIBUTION WIDTH 14.9 % (11.6-17.2); REVIEW FLAG FINAL; WHITE BLOOD COUNT 6.1 TH/MM3 (4.0-11.0)
[2016-08-21 07:39] VITALS: PULSE 58
--- NOTE | 2016-08-21 07:55 | PD.CARD.PN ---
Subjective Subjective Remarks PT without complaints Objective Medications Current Medications Medications (Trade) Dose Ordered Sig/Regina Route Start Time Stop Time Status Last Admin (NS 1000 ml Inj) 1,000 ml @ 30 mls/hr Q24H IV 08/20/16 03:19 08/21/16 04:21 (NS Flush) 2 ml UNSCH PRN IV FLUSH 08/20/16 03:30 (NS Flush) 2 ml BID IV FLUSH 08/20/16 09:00 (Tylenol) 650 mg Q4H PRN PO 08/20/16 03:30 (Zofran Inj) 4 mg Q6H PRN IVP 08/20/16 03:30 (Senokot) 17.2 mg Q12H PRN PO 08/20/16 03:30 (Heparin Inj) 5,000 units Q12H SQ 08/20/16 04:00 08/21/16 04:21 (Tylenol) 650 mg Q6H PRN PO 08/20/16 03:30 (Narcan Inj) 0.4 mg UNSCH PRN IV 08/20/16 03:30 (Norvasc) 10 mg DAILY PO 08/20/16 09:00 08/20/16 10:16 (Coreg) 3.125 mg Q12HR PO 08/20/16 09:00 08/20/16 21:48 (Plavix) 75 mg DAILY PO 08/20/16 09:00 08/20/16 10:16 (Trusopt 2% Opth Soln) 1 drop BID EACH EYE 08/20/16 09:00 08/20/16 21:49 (Proscar) 5 mg DAILY PO 08/20/16 09:00 08/20/16 10:17 (Lasix) 20 mg BID@09,16 PO 08/20/16 09:00 08/20/16 17:17 (Apresoline) 50 mg QID PO 08/20/16 09:00 08/20/16 21:48 (KCl) 20 meq DAILY PO 08/20/16 09:00 08/20/16 10:16 (Pravachol) 80 mg HS PO 08/20/16 21:00 08/20/16 21:48 (Aspirin Chew) 81 mg DAILY PO 08/21/16 09:00 (D50w (Vial) Inj) 50 ml UNSCH PRN IV 08/20/16 08:30 (Glucagon Inj) 1 mg UNSCH PRN OTHER 08/20/16 08:30 (Cozaar) 100 mg DAILY PO 08/21/16 09:00 Vital Signs / I&O Vital Signs Date Time Temp Pulse Resp B/P Pulse Ox O2 Delivery O2 Flow Rate FiO2 08/21/16 07:39 58 08/21/16 07:25 98.5 60 21 158/70 94 169/75 163/77 08/21/16 04:10 98.6 62 18 176/77 97 08/21/16 02:50 64 08/21/16 00:00 98.8 59 18 173/74 96 08/20/16 20:58 98 08/20/16 19:34 98.2 60 18 149/68 95 144/65 143/63 08/20/16 15:15 98.7 57 20 125/67 97 08/20/16 11:25 98.5 59 20 142/66 95 128/61 131/65 08/20/16 08:23 59 I/O 08/20/16 08/20/16 08/20/16 08/21/16 08/21/16 08/21/16 07:00 15:00 23:00 07:00 15:00 23:00 Intake Total 457 ml Output Total 600 ml 900 ml Balance -143 ml -900 ml Intake IV Total 457 ml Output Urine Total 600 ml 900 ml Physical Exam GENERAL: Well developed, well nourished. No acute distress. HEENT: Jugular venous pressure is normal. CHEST: Lungs clear to auscultation bilaterally. Unlabored respiratory effort. CARDIAC: Regular rate and rhythm without S3, S4, or murmur. ABDOMEN: Soft, nontender, no hepatosplenomegaly. Bowel sounds present. EXTREMITIES: No clubbing, cyanosis, or edema. Laboratory Laboratory Tests Test 08/20/16 08/20/16 08/21/16 08:04 12:52 06:44 Troponin I 0.09 NG/ML 0.10 NG/ML White Blood Count 6.1 TH/MM3 Red Blood Count 3.59 MIL/MM3 Hemoglobin 10.7 GM/DL Hematocrit 31.1 % Mean Corpuscular Volume 86.7 FL Mean Corpuscular Hemoglobin 29.7 PG Mean Corpuscular Hemoglobin 34.2 % Concent Red Cell Distribution Width 14.9 % Platelet Count 168 TH/MM3 Mean Platelet Volume 8.9 FL Assessment and Plan Assessment and Plan Dizziness - asymptomatic after stopping glipizide - tele is stable Dysrhythmia - The patient can stop his amiodarone. Hypertension - fair Elevated troponin - The patient does have a chronic elevation in his troponin. I suspect this is from his CKD and labile blood pressure. This does appear to be within his normal range. Dispo- ok for d/c Niki Jesus MD August 21, 2016 07:55
[2016-08-21] MEDS ORDERED: glipiZIDE 5 MG TAB PO SCH (08:00)
[2016-08-21 08:06] LABS: BICARBONATE 23.9 MEQ/L (21.0-32.0); POTASSIUM 3.5 MEQ/L (3.5-5.1)
[2016-08-21] MEDS: DORZOLAMIDE 2% OPTH SOLN 200 DROP/10 ML BTLO EACH EYE SCH (08:20)
[2016-08-21] MEDS: SODIUM CHLORIDE 0.9% FLUSH 10 ML FLUSH IV FLUSH SCH (08:20)
[2016-08-21] MEDS: CLOPIDOGREL 75 MG TAB PO SCH (08:20)
[2016-08-21] MEDS: CARVEDILOL 3.125 MG TAB PO SCH (08:21)
[2016-08-21] MEDS: FUROSEMIDE 20 MG TAB PO SCH (08:21)
[2016-08-21] MEDS: POTASSIUM CHLORIDE 20 MEQ CONTROLLED RELEASE TAB PO SCH (08:21)
[2016-08-21] MEDS: hydrALAZINE HCL 50 MG TAB PO SCH (08:21)
[2016-08-21] MEDS: FINASTERIDE 5 MG TAB PO SCH (08:21)
--- NOTE | 2016-08-21 08:21 | HHI.PR ---
Subjective Remarks no pain awke, responsive fair historian no SOB (Nicky Pisano) Objective Objective Results - Vital Signs Date Time Temp Pulse Resp B/P Pulse Ox O2 Delivery O2 Flow Rate FiO2 08/21/16 07:39 58 08/21/16 07:25 98.5 60 21 158/70 94 169/75 163/77 08/21/16 04:10 98.6 62 18 176/77 97 08/21/16 02:50 64 08/21/16 00:00 98.8 59 18 173/74 96 08/20/16 20:58 98 08/20/16 19:34 98.2 60 18 149/68 95 144/65 143/63 08/20/16 15:15 98.7 57 20 125/67 97 08/20/16 11:25 98.5 59 20 142/66 95 128/61 131/65 08/20/16 08:23 59 I/O 08/20/16 08/20/16 08/20/16 08/21/16 08/21/16 08/21/16 06:59 14:59 22:59 06:59 14:59 22:59 Intake Total 457 ml Output Total 600 ml 900 ml Balance -143 ml -900 ml Intake IV Total 457 ml Output Urine Total 600 ml 900 ml (Nicky Pisano) Result Diagram: 08/21/16 0644 08/21/16 0614 ROS General: Fatigue, Weakness (generalized, improved), Other (10 point ROS done, Positives noted, otherwise unremarkable) Pulmonary: Cough (occ.) GI: BM (none X 2 days, medical management) Neuro/MS: Other (no dizziness) (Nicky Pisano) Physical Exam Physical Exam PHYSICAL EXAMINATION GENERAL: This is a well-developed elderly male who appears to be in no acute distress. He is alert and awake HEAD: Normocephalic without any lesion or mass noted. Facial features appear symmetric. OROPHARYNGEAL: Oropharynx without erythema or edema, mild dry NECK: Supple. No nuchal rigidity or lymphadenopathy. Trachea midline without deviation. CARDIAC: Regular rhythm, regular rate, S1 and S2 are heard. distant LUNGS: Clear to auscultation bilaterally. no wheeze, occ. rhonchi No use of accessory muscles on inspiration or expiration. ABDOMEN: Soft, nontender, no organomegaly or masses. Bowel sounds are heard in all four quadrants. No rebound. No guarding. EXTREMITIES: no edema. Pulses palable NEUROLOGICAL: Patient mood and affect appropriate. No focal deficit SKIN:Warm and dry Objective Remarks Im hoping to go home (Nicky Pisano) A/P Assessment and Plan (1) Dizziness resolved, no further c/p while in hospital (2) Elevated troponin -Continuous cardiac telemetry, stable, HR controlled, Amniodarone stopped per Cardiology, Low positive troponins chronic probable to CKD. Monitor D/C glipizide HGB A!C, stable at 5.5 Hypertension improving. monitor with home meds (3) Stage 3 chronic kidney disease Monitor as OP, anemia secondary to chronic disease (4) Hypertension medical management (5) Hyperlipemia Medical management , stable (6) CAD (coronary artery disease) Follow as OP, stable pain and CVD. (7) Diabetes mellitus A1C 5.5, stable dietary management, cont. ADA diet (8) S/P CABG x 2 stable with meds, (9) CHF (congestive heart failure) stable with meds, no SOB , continue PO lasix DC planning today, ok per Cardiology for OP f/u Symptoms of dizziness subsided Plan home today Discharge Planning home with exwife Discussed With: Nurse, Family (pt), Other (Dr. Sosa) (Nicky Pisano) Assessment and Plan patient seen and examined agree with above assessment and plan cleared by CARDIOLOGY OK TO D/C HOME d/c Glipizide and metformin at discharge plan of care discussed with patient and Nicky BAUER (Faustina Sosa MD) Nicky Pisano August 21, 2016 08:21 Faustina Sosa MD August 21, 2016 10:15
[2016-08-21 08:27] VITALS: PULSE 68
[2016-08-21] MEDS ORDERED: LOSARTAN 50 MG TAB PO SCH (09:00)
[2016-08-21] MEDS ORDERED: ASPIRIN 81 MG CHEW TAB PO SCH (09:00)
--- NOTE | 2016-08-22 15:06 | HHI.DS ---
Discharge Summary Admission Date August 20, 2016 at 03:21 Discharge Date: August 21, 2016 Admitting Diagnosis dizziness (1) Dizziness Diagnosis: Principal (2) Elevated troponin Diagnosis: Principal (3) Stage 3 chronic kidney disease Diagnosis: Secondary (4) Hypertension Diagnosis: Principal (5) Hyperlipemia Diagnosis: Secondary (6) CAD (coronary artery disease) Diagnosis: Secondary (7) Diabetes mellitus Diagnosis: Secondary (8) S/P CABG x 2 Diagnosis: Secondary (9) CHF (congestive heart failure) Diagnosis: Secondary Brief History This was a 81-year-old black male, past medical history of CAD, hypertension, hyperlipidemia, type 2 diabetes. Patient was recently admitted in May for chest pain, underwent cardiac catheter and was found with significant stenosis of LAD and first diagonal. On 05/25/2016 he underwent CABG 2. Patient went to rehabilitation where he did well. He was eventually discharged. Patient returned to the hospital complaining of dizziness that started yesterday afternoon. Patient indicates he was sitting when he suddenly felt dizzy as if he was going to pass out, the room was not spinning, dizziness did not occur with head movement. He denies any chest pain, no palpitations, no headaches, had blurry vision, some shortness of breath. Indicated is compliant with medications. He checked his blood glucose, it was 120. Patient was evaluated in emergency room, CBC was unremarkable, some mild anemia, hemoglobin 10.8, hematocrit 33.BMP remarkable for creatinine 1.70, patient has underlying CK D however this is improved from previous admission. Troponin was mildly elevated 0.08. Blood pressure was elevated, 192/88. He has slowly come down over the last couple of hours. Patient does have uncontrolled blood pressure and during previous admission require adjustment of multiple medications. Indicates he is compliant with medication and takes them at the same time. States that his diet is generally healthy. He was recently started on glipizide. Patient is now evaluated. Dr. Jesus also at bedside evaluating patient. Patient is resting comfortably, denies any dizziness at this time. Patient is asking whether he can travel to [place] as his mother who was 89 recently . Patient informed that he will need to be stabilized and evaluated after his discharge whether he is safe for travel. Patient is admitted for further evaluation. CBC/BMP: 08/21/16 0644 08/21/16 0614 Significant Findings Laboratory Tests Test 08/20/16 08/20/16 08/20/16 08/20/16 01:25 02:25 04:41 08:04 Blood Urea Nitrogen 19 MG/DL (7-18) Creatinine 1.70 MG/DL (0.60-1.30) Estimat Glomerular Filtration 47 ML/MIN (>89) Rate Aspartate Amino Transf 44 U/L (15-37) (AST/SGOT) Troponin I 0.08 NG/ML 0.09 NG/ML (0.02-0.05) (0.02-0.05) Total Protein 8.7 GM/DL (6.4-8.2) Red Blood Count 3.78 MIL/MM3 (4.50-5.90) Hemoglobin 10.8 GM/DL (13.0-17.0) Hematocrit 33.0 % (39.0-51.0) Urine Protein 30 mg/dL (NEG-TRACE) Urine Mucus FEW /lpf (OCC) Test 08/20/16 08/21/16 08/21/16 12:52 06:14 06:44 Troponin I 0.10 NG/ML (0.02-0.05) Chloride Level 108 MEQ/L (98-107) Creatinine 1.61 MG/DL (0.60-1.30) Estimat Glomerular Filtration 50 ML/MIN (>89) Rate Red Blood Count 3.59 MIL/MM3 (4.50-5.90) Hemoglobin 10.7 GM/DL (13.0-17.0) Hematocrit 31.1 % (39.0-51.0) Imaging Last Impressions Head CT 08/20/16 0000 Signed Impressions: Service Date/Time: Saturday, August 20, 2016 01:44 - CONCLUSION: Slight atrophic, encephalomalacia, and small vessel ischemic changes without any evidence for acute hemorrhage or mass effect. Danie Zarate MD Chest X-Ray 08/20/16 0000 Signed Impressions: Service Date/Time: Saturday, August 20, 2016 01:35 - CONCLUSION: No change in cardiomegaly. Danie Zarate MD Carotid Artery Ultrasound 08/20/16 0000 Signed Impressions: Service Date/Time: Saturday, August 20, 2016 10:39 - CONCLUSION: Moderate right carotid bifurcation stenosis. More definitive anatomic evaluation could be achieved with CTA examination of the arch and carotids indicated. Right thyroid nodules. Recommend thyroid sonography for further evaluation Maxi Gates MD Pt Condition on Discharge: Stable Discharge Disposition: Discharge Home Discharge Instructions DIET: Follow Instructions for: Heart Healthy Diet, Diabetic Diet Activities you can perform: Regular-No Restrictions Follow up Referrals: Cardiology PCP Follow-up Continued Medications: Amlodipine (Amlodipine) 10 Mg Tab 10 MG PO DAILY Blood Pressure Management #30 Ref 1 TAB Carvedilol (Coreg) 3.125 Mg Tab 3.125 MG PO Q12HR Blood Pressure Management #60 Ref 1 TAB Clopidogrel (Plavix) 75 Mg Tab 75 MG PO DAILY Blood Clot Prevention #30 Ref 1 TAB Dorzolamide Opth Drops (Dorzolamide Opth Drops) 2% Soln 1 DROP EACH EYE BID Glaucoma #1 Ref 0 BOTTLE Finasteride (Finasteride) 5 Mg Tab 5 MG PO DAILY Do not crush. bph #30 Ref 1 TAB Furosemide (Furosemide) 20 Mg Tab 20 MG PO BID@09,16 #60 Ref 1 TAB Hydralazine (Hydralazine) 50 Mg Tab 50 MG PO QID Take with a meal Blood Pressure Management #120 Ref 1 TAB Losartan (Losartan) 50 Mg Tab 100 MG PO DAILY Blood Pressure Management #30 Ref 1 TAB Multiple Vitamin (Thera/Beta-Carotene) 1 Tab Tab 1 TAB PO DAILY #30 Ref 1 TAB Potassium Chloride ER (K-Tab) 20 Meq Tab 20 MEQ PO DAILY Electrolyte Replacement #30 Ref 1 TAB Simvastatin (Simvastatin) 40 Mg Tab 40 MG PO HS Cholesterol Management #30 Ref 1 TAB ([Aspirin Chew]) 81 MG CHEW 81 MG PO DAILY #30 Ref 1 TAB.CHEW Discontinued Medications: Amiodarone (Amiodarone) 200 Mg Tab 200 MG PO Q12HR ARRYTHMIA #60 Ref 1 TAB Glipizide (Glucotrol) 5 Mg Tab 5 MG PO DAILYAC #30 Ref 1 TAB Nicky Pisano August 22, 2016 15:06
== END 2016-08-21 11:41 | disposition home or self-care (01) ==
LOC: NEPC 23:18 → NEDA 08-20 03:21 → NEPFCDU 08-20 05:18
PROVIDERS: ADMIT Internal Medicine; ATTEND Internal Medicine
DX: R42 Dizziness and giddiness (principal); I25.10 Atherosclerotic heart disease of native coronary artery without angina pectoris; E11.22 Type 2 diabetes mellitus with diabetic chronic kidney disease; R79.89 Other specified abnormal findings of blood chemistry; I49.9 Cardiac arrhythmia, unspecified; I13.0 Hypertensive heart and chronic kidney disease with heart failure and stage 1 through stage 4 chronic kidney disease, or unspecified chronic kidney disease; I50.9 Heart failure, unspecified; N18.3 Chronic kidney disease, stage 3 (moderate); E78.5 Hyperlipidemia, unspecified; E78.00 Pure hypercholesterolemia, unspecified; D63.1 Anemia in chronic kidney disease; K21.9 Gastro-esophageal reflux disease without esophagitis; Z95.1 Presence of aortocoronary bypass graft; Z79.02 Long term (current) use of antithrombotics/antiplatelets; Z79.82 Long term (current) use of aspirin; Z79.84 Long term (current) use of oral hypoglycemic drugs; Z87.891 Personal history of nicotine dependence
CPT/HCPCS: 70450; 71010; 80048; 80053; 81001; 82550; 82552; 82948; 83036; 83735; 84100; 84484; 85025; 85027; 85610; 85730; 93005; 93880; 97162; 99285; G0378; J1644; J1815; J7030

== ENCOUNTER 2016-11-11 10:56 | Inpatient (IN) | payer MEDICARE, MEDICAID ==
[~2016-11-11] VITALS: Ht 180.3 cm; Wt 83.2 kg
[2016-11-11] VITALS (9 sets, daily range): BP systolic 152–222; BP diastolic 71–103; PULSE 51–75; RESP 17–40; TEMP 96.6–98.3; O2SAT 92–98
[~2016-11-11 10:56] MED LIST changes: -AMIO200T PO; -GLIP5 PO
--- NOTE | 2016-11-11 11:11 | PD ---
HPI Chief Complaint: Respiratory Symptoms Time Seen by Provider: 11:07 Travel History International Travel<30 days: No Contact w/Intl Traveler<30days: No Traveled to known affect area: No History of Present Illness HPI 81-year-old male with history of CAD, status post CABG, CHF, hypertension, diabetes, presents to the ER today because he states he started having shortness of breath worse with exertion for the last 2 days. He denies chest pains. He has not been coughing or having any fevers. He states that this has not been like this in the past. Modifying Factors: None Associated Signs & Symptoms: Dyspnea on exertion, shortness of breath Risk Factors: CHF history, cardiac history PFSH Past Medical History Hx Anticoagulant Therapy: Yes (plavix ) Asthma: No Blood Disorders: No Anxiety: No Depression: No Heart Rhythm Problems: No Cancer: No Cardiovascular Problems: Yes High Cholesterol: Yes Chemotherapy: No Chest Pain: Yes Congestive Heart Failure: Yes COPD: No Cerebrovascular Accident: No Coronary Artery Disease: Yes (CABG) Diabetes: Yes Diminished Hearing: No Endocrine: Yes Gastrointestinal Disorders: Yes GERD: Yes Glaucoma: No Genitourinary: Yes (PROSTATE) Hepatitis: No Hiatal Hernia: No Hypertension: Yes Immune Disorder: No Kidney Stones: No Musculoskeletal: No Neurologic: No Psychiatric: Yes Reproductive: No Respiratory: No Migraines: Yes Radiation Therapy: No Renal Failure: Yes Seizures: No Sleep Apnea: No Thyroid Disease: No Ulcer: No Past Surgical History Abdominal Surgery: Yes (bowel surgery) AICD: No Arteriovenous Shunt: No Cardiac Surgery: Yes (2017) Ear Surgery: No Endocrine Surgery: No Eye Surgery: No Genitourinary Surgery: Yes (prostate) Gynecologic Surgery: No Insulin Pump: No Joint Replacement: No Oral Surgery: Yes (TONSILLECTOMY, ADNOIDECTOMY) Pacemaker: No Thoracic Surgery: No Other Surgery: Yes ("SOME BOWEL SURG") Social History Alcohol Use: No Tobacco Use: No Substance Use: No Allergies-Medications (Allergen,Severity, Reaction): Coded Allergies: No Known Allergies (Verified , 11/11/16) Reported Meds & Prescriptions Reported Meds & Active Scripts Active Thera/Beta-Carotene (Multiple Vitamin) 1 Tab Tab 1 Tab PO DAILY Furosemide 20 Mg Tab 20 Mg PO BID@,16 Hydralazine (Hydralazine HCl) 50 Mg Tab 50 Mg PO QID Take with a meal Plavix (Clopidogrel Bisulfate) 75 Mg Tab 75 Mg PO DAILY Coreg (Carvedilol) 3.125 Mg Tab 3.125 Mg PO Q12HR [Aspirin Chew] 81 MG Chew 81 Mg PO DAILY Finasteride 5 Mg Tab 5 Mg PO DAILY Do not crush. Dorzolamide Opth Drops (Dorzolamide HCl) 2% Soln 1 Drop EACH EYE BID Amlodipine (Amlodipine Besylate) 10 Mg Tab 10 Mg PO DAILY Simvastatin 40 Mg Tab 40 Mg PO HS K-Tab (Potassium Chloride) 20 Meq Tab 20 Meq PO DAILY Losartan (Losartan Potassium) 50 Mg Tab 100 Mg PO DAILY Review of Systems Except as stated in HPI: all other systems reviewed are Neg Physical Exam Narrative GENERAL: Well-developed elderly -[place] male patient currently in mild distress at awake and oriented 3. SKIN: Focused skin assessment warm/dry. HEAD: Atraumatic. Normocephalic. EYES: Pupils equal and round. No scleral icterus. No injection or drainage. ENT: No nasal bleeding or discharge. Mucous membranes pink and moist. NECK: Trachea midline. No JVD. CARDIOVASCULAR: Regular rate and rhythm. No murmur appreciated. RESPIRATORY: No accessory muscle use. Clear to auscultation. Breath sounds equal bilaterally. GASTROINTESTINAL: Abdomen soft, non-tender, nondistended. Hepatic and splenic margins not palpable. MUSCULOSKELETAL: No obvious deformities. No clubbing. No cyanosis. No edema. NEUROLOGICAL: Awake and alert. No obvious cranial nerve deficits. Motor grossly within normal limits. Normal speech. PSYCHIATRIC: Appropriate mood and affect; insight and judgment normal. Data Data Last Documented VS Vital Signs Date Time Temp Pulse Resp B/P Pulse Ox O2 Delivery O2 Flow Rate FiO2 11/11/16 13:03 51 17 176/100 98 Nasal Cannula 2 11/11/16 10:59 98.3 Orders Complete Blood Count With Diff (11/11/16 11:07) Comprehensive Metabolic Panel (11/11/16 11:07) B-Type Natriuretic Peptide (11/11/16 11:07) Act Partial Throm Time (Ptt) (11/11/16 11:07) Prothrombin Time / Inr (Pt) (11/11/16 11:07) Ckmb (Isoenzyme) Profile (11/11/16 11:07) Troponin I (11/11/16 11:07) Iv Access Insert/Monitor (11/11/16 11:07) Ecg Monitoring (11/11/16 11:07) Oximetry (11/11/16 11:07) Oxygen Administration (11/11/16 11:07) Chest, Single Ap (11/11/16 11:07) Sodium Chloride 0.9% Flush (Ns Flush) (11/11/16 11:15) Nitroglycerin 2% Oint (Nitroglycerin 2% (11/11/16 11:15) Aspirin (Aspirin) (11/11/16 11:15) Furosemide Inj (Lasix Inj) (11/11/16 11:45) Electrocardiogram (11/11/16 11:04) Amlodipine (Norvasc) (11/12/16 09:00) Carvedilol (Coreg) (11/11/16 21:00) Clopidogrel (Plavix) (11/12/16 09:00) Dorzolamide 2% Opth Soln (Trusopt 2% Opt (11/11/16 21:00) Finasteride (Proscar) (11/12/16 09:00) Hydralazine (Apresoline) (11/11/16 18:00) Losartan (Cozaar) (11/12/16 09:00) Multivitamin (Theragran) (11/12/16 09:00) Potassium Chloride (Kcl) (11/12/16 09:00) (Nf) Simvastatin (11/11/16 21:00) (Nf) [Aspirin Chew] (11/12/16 09:00) Labs Laboratory Tests Test 11/11/16 11:05 White Blood Count 5.4 TH/MM3 Red Blood Count 4.06 MIL/MM3 Hemoglobin 12.2 GM/DL Hematocrit 36.7 % Mean Corpuscular Volume 90.4 FL Mean Corpuscular Hemoglobin 30.0 PG Mean Corpuscular Hemoglobin 33.2 % Concent Red Cell Distribution Width 13.5 % Platelet Count 180 TH/MM3 Mean Platelet Volume 9.2 FL Neutrophils (%) (Auto) 65.2 % Lymphocytes (%) (Auto) 21.5 % Monocytes (%) (Auto) 7.1 % Eosinophils (%) (Auto) 5.2 % Basophils (%) (Auto) 1.0 % Neutrophils # (Auto) 3.5 TH/MM3 Lymphocytes # (Auto) 1.2 TH/MM3 Monocytes # (Auto) 0.4 TH/MM3 Eosinophils # (Auto) 0.3 TH/MM3 Basophils # (Auto) 0.1 TH/MM3 CBC Comment DIFF FINAL Differential Comment Prothrombin Time 11.2 SEC Prothromb Time International 1.0 RATIO Ratio Activated Partial 27.5 SEC Thromboplast Time Sodium Level 141 MEQ/L Potassium Level 4.2 MEQ/L Chloride Level 110 MEQ/L Carbon Dioxide Level 22.8 MEQ/L Anion Gap 8 MEQ/L Blood Urea Nitrogen 14 MG/DL Creatinine 1.63 MG/DL Estimat Glomerular Filtration 49 ML/MIN Rate Random Glucose 129 MG/DL Calcium Level 8.8 MG/DL Total Bilirubin 0.5 MG/DL Aspartate Amino Transf 21 U/L (AST/SGOT) Alanine Aminotransferase 16 U/L (ALT/SGPT) Alkaline Phosphatase 88 U/L Total Creatine Kinase 79 U/L Troponin I 0.09 NG/ML B-Type Natriuretic Peptide 927 PG/ML Total Protein 7.6 GM/DL Albumin 3.4 GM/DL MDM Medical Decision Making Medical Screen Exam Complete: Yes Emergency Medical Condition: Yes Medical Record Reviewed: Yes Interpretation(s) EKG shows normal sinus rhythm at a rate of 60 bpm with no signs of acute ST-T elevations or depressions. Laboratory Tests Test 11/11/16 11:05 Red Blood Count 4.06 MIL/MM3 (4.50-5.90) Hemoglobin 12.2 GM/DL (13.0-17.0) Hematocrit 36.7 % (39.0-51.0) Eosinophils (%) (Auto) 5.2 % (0.0-4.0) Chloride Level 110 MEQ/L (98-107) Creatinine 1.63 MG/DL (0.60-1.30) Estimat Glomerular Filtration 49 ML/MIN (>89) Rate Random Glucose 129 MG/DL (74-106) Troponin I 0.09 NG/ML (0.02-0.05) B-Type Natriuretic Peptide 927 PG/ML (0-100) Last 24 hours Impressions Chest X-Ray 11/11/16 1107 Signed Impressions: Service Date/Time: Friday, November 11, 2016 11:05 - CONCLUSION: Cardiomegaly with new hazy bilateral opacities concerning for pulmonary edema. Christoph Thomas MD Differential Diagnosis Dyspnea on exertionCHF versus pneumonia versus ACS versus dysrhythmias versus hypertensive urgency Narrative Course Chest x-ray and lab work indicates underlying CHF exacerbation. His troponins also mildly elevated but patient has history of chronic elevation of troponin. At this point, patient was given nitroglycerin, aspirin, and Lasix in the ER. His blood pressure improved after nitroglycerin was given. Case was then discussed with Dr. Euceda for admission. Diagnosis Primary Impression: CHF (congestive heart failure) Additional Impressions: Hypertension Elevated troponin Admitting Information Admitting Physician Requests: Admit Justin Huston MD Nov 11, 2016 11:11
[2016-11-11] MEDS ORDERED: SODIUM CHLORIDE 0.9% FLUSH 10 ML FLUSH IVF PRN (11:15)
[2016-11-11] MEDS ORDERED: ASPIRIN 325 MG TAB PO ONE (11:15)
[2016-11-11] MEDS ORDERED: NITROGLYCERIN 2% OINT 1 GM PACKET TOPICAL ONE (11:15)
--- NOTE | 2016-11-11 11:32 | RADRPT ---
EXAM DATE/TIME: 11/11/2016 11:05 [facility] COMPARISON: CHEST SINGLE AP, August 20, 2016, 1:35. INDICATIONS : Short of breath. MEDICAL HISTORY : Cardiovascular disease. SURGICAL HISTORY : CABG. ENCOUNTER: Initial ACUITY: 1 day PAIN SCORE: 6/10 LOCATION: Bilateral chest FINDINGS: A single AP erect portable view of the chest was obtained and again demonstrates that the patient is status post median sternotomy. Moderate cardiomegaly is again noted. There is new hazy perihilar and bibasilar opacities. There is no distinct effusion. The bony thorax is otherwise unremarkable. There are overlying electrocardiogram leads. CONCLUSION: Cardiomegaly with new hazy bilateral opacities concerning for pulmonary edema. Christoph Thomas MD on November 11, 2016 at 11:30 Board Certified Radiologist. This report was verified electronically.
[2016-11-11 11:44] LABS: AUTOMATED NEUTROPHIL # 3.5 TH/MM3 (1.8-7.7); BASOPHIL # 0.1 TH/MM3 (0-0.2); EOSINOPHIL # 0.3 TH/MM3 (0-0.4); EOSINOPHIL % 5.2 % (0.0-4.0); HEMATOCRIT 36.7 % (39.0-51.0); HEMO FLAGS DIFF FINAL; LYMPH % 21.5 % (9.0-44.0); LYMPHOCYTE # 1.2 TH/MM3 (1.0-4.8); MEAN CELL VOLUME 90.4 FL (80.0-100.0); MEAN CORPUSCULAR HGB CONC 33.2 % (32.0-36.0); MONO % 7.1 % (0.0-8.0); NEUT % 65.2 % (16.0-70.0); PLATELET COUNT 180 TH/MM3 (150-450); RED BLOOD COUNT 4.06 MIL/MM3 (4.50-5.90); RED CELL DISTRIBUTION WIDTH 13.5 % (11.6-17.2); WHITE BLOOD COUNT 5.4 TH/MM3 (4.0-11.0)
[2016-11-11] MEDS ORDERED: FUROSEMIDE 40 MG/4 ML VIAL IV PUSH ONE (11:45)
[2016-11-11 11:58] LABS: APTT (PATIENT) 27.5 SEC (24.3-30.1); PROTHROMBIN TIME - PATIENT 11.2 SEC (9.8-11.6)
[2016-11-11 12:06] LABS: ALT (GPT) 16 U/L (12-78); ANION GAP 8 MEQ/L (5-15); AST (GOT) 21 U/L (15-37); BICARBONATE 22.8 MEQ/L (21.0-32.0); BLOOD UREA NITROGEN 14 MG/DL (7-18); CHLORIDE 110 MEQ/L (98-107); GLOMERULAR FILTRATION RATE 49 ML/MIN (>89); POTASSIUM 4.2 MEQ/L (3.5-5.1); SODIUM (NA) 141 MEQ/L (136-145)
[2016-11-11 12:10] LABS: ALKALINE PHOSPHATASE 88 U/L (45-117); TOTAL BILIRUBIN ADULT 0.5 MG/DL (0.2-1.0)
[2016-11-11 12:14] LABS: CREATINE KINASE 79 U/L (39-308)
[2016-11-11] MEDS ORDERED: SODIUM CHLORIDE 0.9% FLUSH 10 ML FLUSH IV FLUSH PRN (13:30)
[2016-11-11] MEDS ORDERED: LACTULOSE SYRUP 20 GM/30 ML CUP PO PRN (13:30)
[2016-11-11] MEDS ORDERED: NALOXONE HCL 0.4 MG/ML AMP IV PRN (13:30)
[2016-11-11] MEDS ORDERED: MAGNESIUM HYDROXIDE SUSP 30 ML CUP PO PRN (13:30)
[2016-11-11] MEDS ORDERED: SENNOSIDES 8.6 MG TAB PO PRN (13:30)
[2016-11-11] MEDS ORDERED: GLUCAGON 1 MG/ML VIAL OTHER PRN (13:45)
[2016-11-11] MEDS ORDERED: DEXTROSE 50% IN WATER 50 ML VIAL(D50) IV PRN (13:45)
[2016-11-11] MEDS ORDERED: BISACODYL 10 MG SUPP RECTAL PRN (14:00)
--- NOTE | 2016-11-11 14:19 | HHI.PR ---
Objective Objective Results - Vital Signs Date Time Temp Pulse Resp B/P Pulse Ox O2 Delivery O2 Flow Rate FiO2 11/11/16 14:10 51 198/100 11/11/16 13:03 51 17 176/100 98 Nasal Cannula 2 11/11/16 11:17 24 98 Nasal Cannula 2 11/11/16 11:17 98 Nasal Cannula 2 11/11/16 11:10 97 Nasal Cannula 2 11/11/16 11:03 62 30 198/98 92 11/11/16 10:59 98.3 75 40 222/103 93 Room Air I/O 11/10/16 11/10/16 11/10/16 11/11/16 11/11/16 11/11/16 07:00 15:00 23:00 07:00 15:00 23:00 Output Total 1000 ml Balance -1000 ml Output Urine Total 1000 ml # Voids 1 Result Diagram: 11/11/16 1105 11/11/16 1105 A/P Assessment and Plan Dictated [id number] Pulmonary edema History of coronary artery disease diabetes mellitus type 2 Chronic kidney disease Elevated troponin level Nicky Pisano Nov 11, 2016 14:19 LUNGS: Clear to auscultation bilaterally. [] wheeze, [] rhonchi or [] rale. No use of accessory muscles on inspiration or expiration. ABDOMEN: Soft, nontender, no organomegaly or masses. Bowel sounds are heard in all four quadrants. No rebound. No guarding. EXTREMITIES: [] edema. Pulses equal bilateral. [] cyanosis. NEUROLOGICAL: Patient mood and affect appropriate. No focal deficit SKIN:Warm and moist A/P Assessment and Plan Dictated [id number] Pulmonary edema History of coronary artery disease diabetes mellitus type 2 Chronic kidney disease Elevated troponin level Nicky Pisano Nov 11, 2016 14:19
--- NOTE | 2016-11-11 14:42 | MH ---
cc: LILIAN BARAKAT MD DATE OF ADMISSION: 11/11/2016 CHIEF COMPLAINT: Shortness of breath. TRAVEL IN THE LAST THIRTY DAYS: None. HISTORY OF PRESENT ILLNESS: This is a pleasant 81-year-old black male who noticed some shortness of breath starting up about three or four days ago. He states that it got worse this morning to the point that he could not catch his breath. He denies any chest but does note some pain in the right lower flank area of his back. He describes it as a sharp pain, especially noticed when he is driving. The patient denies any cough. He has had no recent fevers, no headache. No nausea, vomiting, diarrhea or constipation. He does have a significant history of coronary artery disease and congestive heart failure as well as well as diabetes. PAST MEDICAL HISTORY: 1. The patient is on Plavix for coronary artery disease. 2. Cardiovascular disease. 3. Hyperlipidemia. 4. He last saw his board worker in August of 2016. 5. Chest pain. 6. Congestive heart failure. 7. Diabetes mellitus type 2. 8. Benign prostate hypertrophy. 9. Gastroesophageal reflux disease (GERD). 10. Hypertension. 11. Renal failure. 12. Anemia. 13. Chronic kidney disease. 14. Some dizziness. PAST SURGICAL HISTORY: 1. Bowel surgery. 2. Cardiac surgery in 2017. 3. Prostate surgery. 4. Tonsillectomy. 5. Adenoidectomy. ALLERGIES: NO KNOWN ALLERGIES. MEDICATIONS: 1. Vitamins. 2. Lasix. 3. Hydralazine. 4. Plavix. 5. Coreg. 6. Aspirin. 7. Amlodipine. 8. Simvastatin. 9. K-Tab. 10. Losartan. 11. Finasteride. 12. Dorzolamide eye drops. SOCIAL HISTORY: The patient is currently but from his and he lives alone. He denies any alcohol, tobacco or illicit drugs. He does note that he smoked in his younger years but has been quit 40 years. REVIEW OF SYSTEMS: A twelve point review was obtained and positives noted are noted in the history of present illness which include his shortness of breath, some right lower flank pain described as sharp especially when driving. Other systems negative or unremarkable. PHYSICAL EXAMINATION: VITAL SIGNS: Temperature is 98.3, pulse was 75 on admission now 51, respirations on admission were 40 now 17. Blood pressure is now 176/100 and was 222/103 on admission. Pulse oximetry 98% currently on two liters nasal cannula. GENERAL: A tall, well-developed elderly black male looks to be younger than his stated age sitting straight up on the stretcher alert and oriented and a fair to good historian. SKIN: The mucous membranes are pink. Warm and dry. HEAD, EYES, EARS, NOSE, THROAT: Normocephalic and atraumatic. Pupils equal, round and reactive to light and accommodation. The mucous membranes are moist and pink. No scleral icterus. NECK: The neck is supple. CARDIOVASCULAR: Rhythm is regular. He does have soft systolic murmur grade 1-2/6 left sternal border and mild S3 gallop. He has 1+ edema in his lower extremities bilateral. PULMONARY: Decreased breath sounds in his bases bilateral. No active wheezing or rhonchi. ABDOMEN: The abdomen is soft, nontender and nondistended. Bowel sounds are active. MUSCULOSKELETAL: Lower extremity edema but his extremities are warm to touch. No obvious deformities. NEUROLOGIC: He is awake, alert. Speech is clear. PSYCHIATRIC: Mood and affect are appropriate. Insight and judgment are normal. DIAGNOSTIC DATA: White blood cell count 5.4, RBCs 4.06, hemoglobin 12.2, hematocrit 36.7, eosinophil count 5.2, other differential is normal. Sodium 141, potassium 4.2, chloride 110, carbon dioxide 22.8, BUN 14, creatinine 1.63, GFR 49, random glucose 129. His troponin is 0.09. BNP 927. Albumin 3.4. IMAGING STUDIES: Chest x-ray with cardiomegaly, new bilateral hazy opacities concerning for pulmonary edema. ASSESSMENT: 1. Pulmonary edema. 2. History of coronary artery disease. 3. Diabetes type 2, controlled. 4. Acute kidney injury with chronic kidney disease. 5. Hypertension. PLAN: 1. Admit for inpatient certification. 2. The patient will be on oxygen. 3. In the emergency room, he was given aspirin, nitroglycerin ointment was placed on him. 4. ECG monitoring. 5. IV access. 6. His initial labs were done. 7. He received 40 of IV Lasix in the emergency room and he is actively diuresing in the urinal. 8. His medications have been reconciled. 9. Will monitor his bowel regimen. 10. Continue to actively diurese him monitoring all of his labs and especially with special attention to his potassium level. 11. His troponins are in progress, his first one is positive. 12. Cardiology has been consulted for their expert opinion. 13. Activity will be out of bed but only with assistance as needed. The patient is full code, full aggressive care. We will continue to follow. Dictated by JUANCARLOS Ferris. MD KAR Hardy/ALLEGRA /1:55 PM /2:23 PM seen, examined by myself, Dr Barakat, today Discussed with patient Discussed with nurse Discussed with emergency physician Admitted with acute exacerbation of heart failure Hypertensive emergency Improved after treatment Rule out acute coronary event Serial CKs and troponin Consult his board worker Dr. Jesus Discussed with mid level provider The exam, history, and the medical decision-making described in the above note were completed with the assistance of the mid-level provider. I reviewed the findings presented. I attest that I had a [id number] encounter with the patient on the same day, and personally performed and documented my assessment and findings in the medical record. KATHY
[2016-11-11] MEDS ORDERED: cloNIDine HCL 0.1 MG TAB PO PRN (15:00)
[2016-11-11] MEDS ORDERED: NIFEdipine 60 MG SUSTAINED RELEASE TAB PO SCH (15:00)
[2016-11-11] MEDS ORDERED: cloNIDine HCL 0.1 MG TAB PO ONE (15:00)
--- NOTE | 2016-11-11 15:33 | ECHRPT ---
Indication: CONCLUSIONS The left ventricular systolic function is severely reduced with an estimated ejection fraction in th e range of 30-35%. There is global left ventricular dysfunction. Mild concentric left ventricular hypertrophy. Normal left ventricular size. The left atrial size is mildly dilated. Mild mitral annular calcification. Mild mitral valve regurgitation. Aortic valve sclerosis is present. No aortic valve regurgitation. No aortic valve stenosis. There is mild tricuspid valve regurgitation. The estimated pulmonary arterial pressure is 32 mmHg. The pulmonary valve is not well visualized. BP: / HR: 49 Rhythm: Sinus MEASUREMENTS (Male / Female) Normal Values Technical Quality:Good 2D ECHO LV Diastolic Diameter PLAX 5.1 cm 4.2 - 5.9 / 3.9 - 5.3 cm LV Systolic Diameter PLAX 4.5 cm IVS Diastolic Thickness 1.6 cm 0.6 - 1.0 / 0.6 - 0.9 cm LVPW Diastolic Thickness 1.6 cm 0.6 - 1.0 / 0.6 - 0.9 cm LV Relative Wall Thickness 0.6 LVOT Diameter 2.0 cm M-MODE Aortic Root Diameter MM 3.7 cm LA Systolic Diameter MM 4.2 cm LA Ao Ratio MM 1.1 AV Cusp Separation MM 2.1 cm DOPPLER AV Peak Velocity 148.0 cm/s AV Peak Gradient 8.8 mmHg AI Peak Velocity 300.0 cm/s AI Peak Gradient 36.0 mmHg AI Pressure Half Time 1020.0 ms LVOT Peak Velocity 61.7 cm/s LVOT Peak Gradient 1.5 mmHg AV Area Cont Eq pk 1.3 cm MR Peak Velocity 393.0 cm/s MR Peak Gradient 61.8 mmHg LV E' Lateral Velocity 3.0 cm/s LV E' Septal Velocity 2.3 cm/s TR Peak Velocity 236.0 cm/s TR Peak Gradient 22.3 mmHg PV Peak Velocity 82.8 cm/s PV Peak Gradient 2.7 mmHg FINDINGS LEFT VENTRICLE The left ventricular systolic function is severely reduced with an estimated ejection fraction in th e range of 30-35%. There is global left ventricular dysfunction. Mild concentric left ventricular hypertrophy. Normal left ventricular size. RIGHT VENTRICLE Normal right ventricular size and systolic function. LEFT ATRIUM The left atrial size is mildly dilated. RIGHT ATRIUM The right atrial size is normal. ATRIAL SEPTUM Normal atrial septal thickness without atrial level shunting by limited color doppler interrogation. AORTA The aortic root and proximal ascending aorta are normal in size on limited imaging. MITRAL VALVE Mild mitral annular calcification. Mild mitral valve regurgitation. AORTIC VALVE Trileaflet aortic valve. Aortic valve sclerosis is present. No aortic valve regurgitation. No aortic valve stenosis. TRICUSPID VALVE There is mild tricuspid valve regurgitation. The estimated pulmonary arterial pressure is 32 mmHg. PULMONARY VALVE The pulmonary valve is not well visualized. VESSELS The inferior vena cava is normal in size. PERICARDIUM No pericardial effusion. Scott Kay MD (Electronically Signed) Final Date:11 November 2016 15:33
[2016-11-11] MEDS: INSULIN ASPART SUPPLEMENTAL SCALE SQ SCH ×2 (16:00→21:00)
--- NOTE | 2016-11-11 17:08 | MB ---
cc: SCOTT KAY BETH A. MD DATE OF CONSULTATION 11/11/2016 Prior records have been reviewed. HISTORY OF THE PRESENT ILLNESS The patient is an 81-year-old gentleman who I am seeing for congestive heart failure. The patient underwent catheterization May of this year because of an abnormal nuclear stress test. He had mild left ventricular dysfunction with moderate left main and triple vessel disease. He underwent bypass surgery by Dr. Elio Pérez with left internal mammary to the LAD and a vein graft to diagonal number one. The patient has done well although he states his blood pressure is not well-controlled. Over the last week he has had progressive dyspnea on exertion but no other cardiopulmonary symptoms. He has no fevers, chills, coughing up blood or other complaints. PAST MEDICAL HISTORY 1. Hypertension. 2. Diabetes. 3. Hyperlipidemia. 4. Chronic kidney disease apparently stage III. 5. Transurethral resection of prostate with benign prostatic hypertrophy. 6. Imbalance / dizziness which is chronic. 7. Cataracts. ALLERGIES NONE. SOCIAL HISTORY He is and smoked in the past and does not drink. FAMILY HISTORY Noncontributory. REVIEW OF SYSTEMS Remarkable for his balance issues and vision along with joint complaints. PHYSICAL EXAMINATION VITAL SIGNS: On exam afebrile with mild bradycardia. He is severely hypertensive. HEENT: The no xanthelasma. Oral pharyngeal mucosa normal. CHEST: Clear. JVD is slightly elevated with normal PMI. S1-S2 no definite murmurs or gallops. ABDOMEN: Benign. EXTREMITIES: Show no cyanosis, clubbing or edema. PULSES: Carotids without bruits. Radials 1+. Femorals not felt as his pants were on in the emergency room. Pedals trace to 1+. He is not ambulated. IMAGING EKG reveals sinus rhythm with nonspecific T-wave changes. Chest x-ray with hazy bilateral opacities and cardiomegaly. LABORATORY DATA Lab work, CBC with mild anemia and hematocrit 36.7. PT/PTT normal. Potassium 4.2, creatinine 1.63, glucose 129. BNP elevated as 927. Troponin 0.09. Liver functions normal. Of note is the fact that he has run mildly elevated troponins in the past. MEDICATIONS List reviewed. DIAGNOSES Problems: 1. Congestive heart failure. 2. Mildly elevated troponin - nonspecific and may be related to congestive heart failure and hypertension. 3. Severe hypertension - uncontrolled. 4. Diabetes. 5. Hyperlipidemia. 6. Chronic kidney disease. RECOMMENDATIONS 1. DVT prophylaxis. 2. Continue home medication. It is unclear whether he truly needs Plavix. 3. Echocardiogram to assess ventricular and valvular function. Two of his three vessels were not bypassed and he may have developed significant left ventricular dysfunction. 4. Continue home medication along with adding in clonidine for rate control. 5. Diuresis following inputs and outputs, electrolytes and renal function closely. 6. Dr. Jesus will follow the patient up tomorrow. All questions were answered. Scott Kay MD ASG/KK /2:58 PM /4:58 PM
[2016-11-11] MEDS: hydrALAZINE HCL 50 MG TAB PO SCH ×2 (17:59→23:21)
[2016-11-11] MEDS ORDERED: FUROSEMIDE 40 MG/4 ML VIAL IV PUSH SCH (18:00)
[2016-11-11] MEDS: DOCUSATE SODIUM 50 MG/SENNA 8.6 MG TAB PO SCH (21:00)
[2016-11-11] MEDS: PRAVASTATIN SOD 80 MG TAB PO SCH (21:05)
[2016-11-11] MEDS: CARVEDILOL 3.125 MG TAB PO SCH (21:05)
[2016-11-11] MEDS: SODIUM CHLORIDE 0.9% FLUSH 10 ML FLUSH IV FLUSH SCH (21:06)
[2016-11-11] MEDS: cloNIDine HCL 0.1 MG TAB PO SCH (23:21)
[2016-11-11] MEDS: DORZOLAMIDE 2% OPTH SOLN 200 DROP/10 ML BTLO EACH EYE SCH (23:21)
[2016-11-12] VITALS: BP 162/78; PULSE 53; RESP 17; TEMP 96.4; O2SAT 95
[2016-11-12 04:00] VITALS: BP 138/72; PULSE 58; RESP 17; TEMP 96.4; O2SAT 95
[2016-11-12 05:39] LABS: AUTOMATED NEUTROPHIL # 5.3 TH/MM3 (1.8-7.7); BASOPHIL % 0.6 % (0.0-2.0); EOSINOPHIL # 0.1 TH/MM3 (0-0.4); EOSINOPHIL % 2.2 % (0.0-4.0); HEMATOCRIT 33.7 % (39.0-51.0); HEMO FLAGS DIFF FINAL; LYMPH % 13.9 % (9.0-44.0); LYMPHOCYTE # 0.9 TH/MM3 (1.0-4.8); MEAN CELL VOLUME 89.1 FL (80.0-100.0); MEAN CORPUSCULAR HEMOGLOBIN 30.4 PG (27.0-34.0); MEAN CORPUSCULAR HGB CONC 34.1 % (32.0-36.0); NEUT % 78.3 % (16.0-70.0); PLATELET COUNT 172 TH/MM3 (150-450); RED BLOOD COUNT 3.78 MIL/MM3 (4.50-5.90); RED CELL DISTRIBUTION WIDTH 13.4 % (11.6-17.2); WHITE BLOOD COUNT 6.7 TH/MM3 (4.0-11.0)
[2016-11-12 05:49] LABS: BICARBONATE 25.9 MEQ/L (21.0-32.0); MAGNESIUM 1.8 MG/DL (1.5-2.5); POTASSIUM 3.3 MEQ/L (3.5-5.1)
[2016-11-12] MEDS: INSULIN ASPART SUPPLEMENTAL SCALE SQ SCH ×4 (06:29→21:00)
--- NOTE | 2016-11-12 07:51 | PD.CARD.PN ---
Subjective Subjective Remarks PT without complaints Objective Medications Current Medications Medications (Trade) Dose Ordered Sig/Regina Route Start Time Stop Time Status Last Admin (Coreg) 3.125 mg Q12HR PO 11/11/16 21:00 11/11/16 21:05 (Plavix) 75 mg DAILY PO 11/12/16 09:00 (Trusopt 2% Opth Soln) 1 drop BID EACH EYE 11/11/16 21:00 11/11/16 23:21 (Proscar) 5 mg DAILY PO 11/12/16 09:00 (Apresoline) 50 mg QID PO 11/11/16 18:00 11/11/16 23:21 (Cozaar) 100 mg DAILY PO 11/12/16 09:00 (Theragran) 1 tab DAILY PO 11/12/16 09:00 (KCl) 20 meq DAILY PO 11/12/16 09:00 (Pravachol) 80 mg HS PO 11/11/16 21:00 11/11/16 21:05 (Aspirin Chew) 81 mg DAILY PO 11/12/16 09:00 (NS Flush) 2 ml UNSCH PRN IV FLUSH 11/11/16 13:30 (NS Flush) 2 ml BID IV FLUSH 11/11/16 21:00 11/11/16 21:06 (Narcan Inj) 0.4 mg UNSCH PRN IV 11/11/16 13:30 (Leila-Colace) 1 tab BID PO 11/11/16 21:00 (Milk Of Magnesia Liq) 30 ml Q12H PRN PO 11/11/16 13:30 (Senokot) 17.2 mg Q12H PRN PO 11/11/16 13:30 (Dulcolax Supp) 10 mg DAILY PRN RECTAL 11/11/16 14:00 (Lactulose Liq) 30 ml DAILY PRN PO 11/11/16 13:30 (D50w (Vial) Inj) 50 ml UNSCH PRN IV 11/11/16 13:45 (Glucagon Inj) 1 mg UNSCH PRN OTHER 11/11/16 13:45 (Procardia Xl) 60 mg DAILY PO 11/11/16 15:00 11/11/16 15:40 (Catapres) 0.1 mg Q6H PRN PO 11/11/16 15:00 (Lasix Inj) 40 mg BID@09,18 IV PUSH 11/11/16 18:00 11/11/16 17:59 (Catapres) 0.1 mg Q12HR PO 11/11/16 21:00 11/11/16 23:21 Vital Signs / I&O Vital Signs Date Time Temp Pulse Resp B/P Pulse Ox O2 Delivery O2 Flow Rate FiO2 11/12/16 04:00 96.4 58 17 138/72 95 11/12/16 00:00 96.4 53 17 162/78 95 11/11/16 21:03 95 Nasal Cannula 2.00 11/11/16 20:21 56 11/11/16 20:00 96.6 51 17 152/71 95 11/11/16 16:08 53 178/94 11/11/16 16:00 96.9 57 20 172/83 92 11/11/16 14:10 51 198/100 11/11/16 13:03 51 17 176/100 98 Nasal Cannula 2 11/11/16 11:17 24 98 Nasal Cannula 2 11/11/16 11:17 98 Nasal Cannula 2 11/11/16 11:10 97 Nasal Cannula 2 11/11/16 11:03 62 30 198/98 92 11/11/16 10:59 98.3 75 40 222/103 93 Room Air I/O 11/11/16 11/11/16 11/11/16 11/12/16 11/12/16 11/12/16 07:00 15:00 23:00 07:00 15:00 23:00 Intake Total 240 ml 240 ml Output Total 1000 ml 1250 ml 500 ml Balance -1000 ml -1010 ml -260 ml Intake Oral 240 ml 240 ml Output Urine Total 1000 ml 1250 ml 500 ml # Voids 1 Physical Exam GENERAL: Well developed, well nourished. No acute distress. HEENT: Jugular venous pressure is normal. CHEST: Lungs clear to auscultation bilaterally. Unlabored respiratory effort. CARDIAC: Regular rate and rhythm without S3, S4, or murmur. ABDOMEN: Soft, nontender, no hepatosplenomegaly. Bowel sounds present. EXTREMITIES: No clubbing, cyanosis, or edema. Laboratory Laboratory Tests Test 11/11/16 11/11/16 11/12/16 11:05 22:05 04:43 White Blood Count 5.4 TH/MM3 6.7 TH/MM3 Red Blood Count 4.06 MIL/MM3 3.78 MIL/MM3 Hemoglobin 12.2 GM/DL 11.5 GM/DL Hematocrit 36.7 % 33.7 % Mean Corpuscular Volume 90.4 FL 89.1 FL Mean Corpuscular Hemoglobin 30.0 PG 30.4 PG Mean Corpuscular Hemoglobin 33.2 % 34.1 % Concent Red Cell Distribution Width 13.5 % 13.4 % Platelet Count 180 TH/MM3 172 TH/MM3 Mean Platelet Volume 9.2 FL 9.4 FL Neutrophils (%) (Auto) 65.2 % 78.3 % Lymphocytes (%) (Auto) 21.5 % 13.9 % Monocytes (%) (Auto) 7.1 % 5.0 % Eosinophils (%) (Auto) 5.2 % 2.2 % Basophils (%) (Auto) 1.0 % 0.6 % Neutrophils # (Auto) 3.5 TH/MM3 5.3 TH/MM3 Lymphocytes # (Auto) 1.2 TH/MM3 0.9 TH/MM3 Monocytes # (Auto) 0.4 TH/MM3 0.3 TH/MM3 Eosinophils # (Auto) 0.3 TH/MM3 0.1 TH/MM3 Basophils # (Auto) 0.1 TH/MM3 0.0 TH/MM3 CBC Comment DIFF FINAL DIFF FINAL Differential Comment Prothrombin Time 11.2 SEC Prothromb Time International 1.0 RATIO Ratio Activated Partial 27.5 SEC Thromboplast Time Sodium Level 141 MEQ/L 140 MEQ/L Potassium Level 4.2 MEQ/L 3.3 MEQ/L Chloride Level 110 MEQ/L 107 MEQ/L Carbon Dioxide Level 22.8 MEQ/L 25.9 MEQ/L Anion Gap 8 MEQ/L 7 MEQ/L Blood Urea Nitrogen 14 MG/DL 17 MG/DL Creatinine 1.63 MG/DL 1.70 MG/DL Estimat Glomerular Filtration 49 ML/MIN 47 ML/MIN Rate Random Glucose 129 MG/DL 106 MG/DL Calcium Level 8.8 MG/DL 8.6 MG/DL Total Bilirubin 0.5 MG/DL Aspartate Amino Transf 21 U/L (AST/SGOT) Alanine Aminotransferase 16 U/L (ALT/SGPT) Alkaline Phosphatase 88 U/L Total Creatine Kinase 79 U/L 69 U/L Troponin I 0.09 NG/ML 0.08 NG/ML 0.10 NG/ML B-Type Natriuretic Peptide 927 PG/ML Total Protein 7.6 GM/DL Albumin 3.4 GM/DL Phosphorus Level 3.2 MG/DL Magnesium Level 1.8 MG/DL Imaging Last 72 hours Impressions Chest X-Ray 11/11/16 1107 Signed Impressions: Service Date/Time: Friday, November 11, 2016 11:05 - CONCLUSION: Cardiomegaly with new hazy bilateral opacities concerning for pulmonary edema. Christoph Thomas MD Assessment and Plan Assessment and Plan Acute CHF- likely diastolic ans systolic combined, EF 30-35% global HK - control HTN, - continue diuretic and sodium restrict HTN- sBP 190's at home also on BB, ARB and continue amlodipine not nifedical with reduced EF CAD- hx CABG May 2016 Niki Jesus MD Nov 12, 2016 07:51
[2016-11-12 08:45] VITALS: BP 143/64; PULSE 60; RESP 19; TEMP 98.7; O2SAT 95
[2016-11-12] MEDS ORDERED: POTASSIUM CHLORIDE 10 MEQ CONTROLLED RELEASE TAB PO ONE (09:15)
[2016-11-12] MEDS: ASPIRIN 81 MG CHEW TAB PO SCH (10:34)
[2016-11-12] MEDS: FINASTERIDE 5 MG TAB PO SCH (10:35)
[2016-11-12] MEDS: MULTIVITAMIN TAB PO SCH (10:35)
[2016-11-12] MEDS: CLOPIDOGREL 75 MG TAB PO SCH (10:35)
[2016-11-12] MEDS: POTASSIUM CHLORIDE 20 MEQ CONTROLLED RELEASE TAB PO SCH (10:35)
[2016-11-12] MEDS: FUROSEMIDE 20 MG TAB PO SCH ×2 (10:35→17:48)
[2016-11-12] MEDS: LOSARTAN 50 MG TAB PO SCH (10:36)
[2016-11-12] MEDS: CARVEDILOL 3.125 MG TAB PO SCH ×2 (10:36→19:56)
[2016-11-12] MEDS: hydrALAZINE HCL 50 MG TAB PO SCH ×3 (10:36→19:56)
[2016-11-12] MEDS: DOCUSATE SODIUM 50 MG/SENNA 8.6 MG TAB PO SCH ×2 (10:36→19:56)
[2016-11-12] MEDS: cloNIDine HCL 0.1 MG TAB PO SCH ×2 (10:36→19:56)
[2016-11-12] MEDS: SODIUM CHLORIDE 0.9% FLUSH 10 ML FLUSH IV FLUSH SCH ×2 (11:04→20:06)
[2016-11-12] MEDS: DORZOLAMIDE 2% OPTH SOLN 200 DROP/10 ML BTLO EACH EYE SCH ×2 (11:04→20:05)
[2016-11-12 13:13] VITALS: BP 112/55; PULSE 52; RESP 19; TEMP 97.5; O2SAT 96
--- NOTE | 2016-11-12 13:29 | HHI.PR ---
Subjective Remarks Able to sit up on side of the bed, and lay with head of bed elevated at 30 No acute chest pain or shortness of breath Telemetry, bradycardia heart rate in the 50s for his low Afebrile (Nicky Pisano) Objective Objective Results - Vital Signs Date Time Temp Pulse Resp B/P Pulse Ox O2 Delivery O2 Flow Rate FiO2 11/12/16 13:13 97.5 52 19 112/55 96 11/12/16 08:45 98.7 60 19 143/64 95 11/12/16 04:00 96.4 58 17 138/72 95 11/12/16 00:00 96.4 53 17 162/78 95 11/11/16 21:03 95 Nasal Cannula 2.00 11/11/16 20:21 56 11/11/16 20:00 96.6 51 17 152/71 95 11/11/16 16:08 53 178/94 11/11/16 16:00 96.9 57 20 172/83 92 11/11/16 14:10 51 198/100 I/O 11/11/16 11/11/16 11/11/16 11/12/16 11/12/16 11/12/16 06:59 14:59 22:59 06:59 14:59 22:59 Intake Total 240 ml 240 ml Output Total 1000 ml 1250 ml 500 ml Balance -1000 ml -1010 ml -260 ml Intake Oral 240 ml 240 ml Output Urine Total 1000 ml 1250 ml 500 ml # Voids 1 (Nicky Pisano) Result Diagram: 11/12/1644211/12/16 0443 ROS General: Fatigue, Weakness, Other (improving 10 point ROS done positives noted) Cardiac: Chest Pain (none) Pulmonary: Cough (occasional), SOB (Nicky Pisano) Physical Exam Physical Exam PHYSICAL EXAMINATION GENERAL: This is a well-developed, elderly male who appears to be in no acute distress. He is alert and awake, HEAD: Normocephalic, atraumatic Facial features appear symmetric. OROPHARYNGEAL: Oropharynx clear NECK: Supple. Trachea midline CARDIAC: Regular, slow rhythm, regular rate, S1 and S2 are heard. Bradycardia LUNGS: Mild diminished but much improved to auscultation bilaterally. No use of accessory muscles on inspiration or expiration. ABDOMEN: Soft, nontender, no organomegaly or masses. Bowel sounds are heard in all four quadrants. No rebound. No guarding. EXTREMITIES: No lower extremity edema. Resolved NEUROLOGICAL: Patient mood and affect appropriate. SKIN:Warm and dry (Nicky Pisano) A/P Assessment and Plan 1. Pulmonary edema. Active diuresis, able to sit up and breathe and lay back with head of bed at 30 without shortness of breath. Cardiology consult Oxygen, continue diuretic 2. History of coronary artery disease. Medical management currently denies any chest pain, maintaining patient on telemetry, currently sinus rhythm and borderline sinus bradycardia heart , asymptomatic of any dizziness or weakness rate 55., Cardiology consult appreciate input, Patient's CHF is probable diastolic and systolic combined , EF 30-35% , restrict sodium continue diuretic , control high blood pressure Currently receiving Norvasc, Cozaar, Apresoline, Coreg, and clonidine. Troponins are mildly positive but could be related to his renal disease, continue continue to monitor his signs and symptoms 3. Diabetes type 2, controlled. Accu-Cheks before meals and at bedtime with sliding scale, heart healthy ADA diet 4. Acute kidney injury with chronic kidney disease. Continue to monitor Patient required IV Lasix with diuresis, we'll continue to monitor his labs and encourage some by mouth fluids 5. Hypertension. Medical management controlled, continue to monitor every 4 and when necessary 6. Hypokalemia, probable secondary to active diuresis, potassium 3.3, KCl 40 mEq given her mouth, Will recheck his labs in the morning Physical therapy ordered, patient lives alone eval and treat for his safety and discharge planning when he is medically stable Discussed with patient Discussed with nurse Discussed with Dr. Morse, seen on his behalf (Nicky Pisano) Assessment and Plan seen, examined by myself, Dr Morse, today Discussed with patient, he is feeling better Seen by Dr. Jesus Nifedipine discontinued because of the low ejection fraction Monitor blood pressure Discussed with mid level provider The exam, history, and the medical decision-making described in the above note were completed with the assistance of the mid-level provider. I reviewed the findings presented. I attest that I had a [id number] encounter with the patient on the same day, and personally performed and documented my assessment and findings in the medical record. (Manoj Morse MD) Nicky Pisano Nov 12, 2016 13:29 Manoj Morse MD Nov 12, 2016 20:59
[2016-11-12 16:00] VITALS: BP 122/58; PULSE 50; RESP 19; TEMP 95; O2SAT 95
--- NOTE | 2016-11-12 16:50 | EKG ---
Date Performed: 11/11/2016 Time Performed: 11:04:32 PTAGE: 81 years EKG: Sinus rhythm MINIMAL VOLTAGE CRITERIA FOR LVH, CONSIDER NORMAL VARIANT PROBABLE INFERIOR MYOCARDIAL INFARCTION MO DERATE T-WAVE ABNORMALITY, CONSIDER LATERAL ISCHEMIA ABNORMAL ECG PREVIOUS TRACING : 08/20/2016 06.07 Compared to prior tracing no significant change DOCTOR: Effie Tracy Interpretating Date/Time 11/12/2016 16:47:18
[2016-11-12] MEDS: PRAVASTATIN SOD 80 MG TAB PO SCH (19:57)
[2016-11-12 20:00] VITALS: BP 133/60; PULSE 52; RESP 22; TEMP 96.6; O2SAT 95
[2016-11-12] MEDS: MORPHINE SULFATE 4 MG/ML INJ IV PRN (20:02)
--- NOTE | 2016-11-12 21:49 | RADRPT ---
EXAM DATE/TIME: 11/12/2016 21:40 [facility] COMPARISON: US KIDNEY/RENAL/BLADDER, May 28, 2016, 14:51. INDICATIONS : Left side flank pain, renal stones. MEDICAL HISTORY : None. SURGICAL HISTORY : None. ENCOUNTER: Initial ACUITY: 3 days PAIN SCORE: 10/10 LOCATION: Left flank. FINDINGS: Supine view of the abdomen was performed. The abdominal bowel gas pattern is normal. No abnormal ma sses, calcifications, or organomegaly is seen. The osseous structures are unremarkable. CONCLUSION: Benign-appearing abdomen. No perceptible renal or ureteral calculus. Maxi Fowler MD on November 12, 2016 at 21:47 Board Certified Radiologist. This report was verified electronically.
[2016-11-13] VITALS (7 sets, daily range): BP systolic 126–166; BP diastolic 59–79; PULSE 52–65; RESP 17–22; TEMP 96–98.4; O2SAT 92–97
[2016-11-13] MEDS: hydrALAZINE HCL 50 MG TAB PO SCH ×4 (02:17→22:30)
[2016-11-13] MEDS: INSULIN ASPART SUPPLEMENTAL SCALE SQ SCH ×4 (05:49→22:39)
--- NOTE | 2016-11-13 07:36 | PD.CARD.PN ---
Subjective Subjective Remarks Pt reports he is dizzy Objective Medications Current Medications Medications (Trade) Dose Ordered Sig/Regina Route Start Time Stop Time Status Last Admin (Coreg) 3.125 mg Q12HR PO 11/11/16 21:00 11/12/16 19:56 (Plavix) 75 mg DAILY PO 11/12/16 09:00 11/12/16 10:35 (Trusopt 2% Opth Soln) 1 drop BID EACH EYE 11/11/16 21:00 11/12/16 20:05 (Proscar) 5 mg DAILY PO 11/12/16 09:00 11/12/16 10:35 (Cozaar) 100 mg DAILY PO 11/12/16 09:00 11/12/16 10:36 (Theragran) 1 tab DAILY PO 11/12/16 09:00 11/12/16 10:35 (KCl) 20 meq DAILY PO 11/12/16 09:00 11/12/16 10:35 (Pravachol) 80 mg HS PO 11/11/16 21:00 11/12/16 19:57 (Aspirin Chew) 81 mg DAILY PO 11/12/16 09:00 11/12/16 10:34 (NS Flush) 2 ml UNSCH PRN IV FLUSH 11/11/16 13:30 (NS Flush) 2 ml BID IV FLUSH 11/11/16 21:00 11/12/16 20:06 (Narcan Inj) 0.4 mg UNSCH PRN IV 11/11/16 13:30 (Leila-Colace) 1 tab BID PO 11/11/16 21:00 11/12/16 19:56 (Milk Of Magnesia Liq) 30 ml Q12H PRN PO 11/11/16 13:30 (Senokot) 17.2 mg Q12H PRN PO 11/11/16 13:30 (Dulcolax Supp) 10 mg DAILY PRN RECTAL 11/11/16 14:00 (Lactulose Liq) 30 ml DAILY PRN PO 11/11/16 13:30 (D50w (Vial) Inj) 50 ml UNSCH PRN IV 11/11/16 13:45 (Glucagon Inj) 1 mg UNSCH PRN OTHER 11/11/16 13:45 (Catapres) 0.1 mg Q6H PRN PO 11/11/16 15:00 (Catapres) 0.1 mg Q12HR PO 11/11/16 21:00 11/12/16 19:56 (Apresoline) 50 mg Q6H PO 11/12/16 09:00 11/13/16 02:17 (Lasix) 20 mg BID@,18 PO 11/12/16 09:00 11/12/16 17:48 (Norvasc) 10 mg DAILY PO 11/12/16 10:00 11/12/16 11:08 (Morphine Inj) 2 mg Q4H PRN IV 11/12/16 18:00 11/12/16 20:02 Vital Signs / I&O Vital Signs Date Time Temp Pulse Resp B/P Pulse Ox O2 Delivery O2 Flow Rate FiO2 11/13/16 04:00 98.4 64 22 131/59 94 11/13/16 00:00 96.7 52 22 126/60 94 11/12/16 20:07 18 11/12/16 20:00 96.6 52 22 133/60 95 11/12/16 16:00 95.0 50 19 122/58 95 11/12/16 13:13 97.5 52 19 112/55 96 11/12/16 08:45 98.7 60 19 143/64 95 11/12/16 08:20 95 Nasal Cannula 2.00 I/O 11/12/16 11/12/16 11/12/16 11/13/16 11/13/16 11/13/16 07:00 15:00 23:00 07:00 15:00 23:00 Intake Total 240 ml 600 ml 320 ml 320 ml Output Total 500 ml 250 ml Balance -260 ml 350 ml 320 ml 320 ml Intake Oral 240 ml 600 ml 320 ml 320 ml Output Urine Total 500 ml 250 ml # Voids 1 2 # Bowel Movements 0 0 0 Physical Exam GENERAL: Well developed, well nourished. No acute distress. HEENT: Jugular venous pressure is normal. CHEST: Lungs clear to auscultation bilaterally. Unlabored respiratory effort. CARDIAC: Regular rate and rhythm without S3, S4, or murmur. ABDOMEN: Soft, nontender, no hepatosplenomegaly. Bowel sounds present. EXTREMITIES: No clubbing, cyanosis, or edema. Assessment and Plan Assessment and Plan Acute CHF- likely diastolic ans systolic combined, EF 30-35% global HK - continue diuretic and sodium restrict - doing well on present meds; check wade nuc for anterior ischemia, CX and RCA have severe diffuse disease and were not revascularized ischemic cardiomyopathy- 42% with nuc in May now 30-35% as above, Life vest HTN- sBP 190's at home also on BB, ARB and continue amlodipine not nifedical with reduced EF - good dizzy- pt is bradycardic, not clear if this is etiology; check orthostatics -consider device to be able to use BB CAD- hx CABG May 2016 Weakness- likely needs PT Niki Jesus MD Nov 13, 2016 07:36
[2016-11-13] MEDS: DOCUSATE SODIUM 50 MG/SENNA 8.6 MG TAB PO SCH ×2 (08:45→22:26)
[2016-11-13] MEDS: ASPIRIN 81 MG CHEW TAB PO SCH (08:45)
[2016-11-13] MEDS: CLOPIDOGREL 75 MG TAB PO SCH (08:45)
[2016-11-13] MEDS: MULTIVITAMIN TAB PO SCH (08:45)
[2016-11-13] MEDS: LOSARTAN 50 MG TAB PO SCH (08:45)
[2016-11-13] MEDS: CARVEDILOL 3.125 MG TAB PO SCH ×2 (08:45→22:26)
[2016-11-13] MEDS: POTASSIUM CHLORIDE 20 MEQ CONTROLLED RELEASE TAB PO SCH (08:45)
[2016-11-13] MEDS: FUROSEMIDE 20 MG TAB PO SCH ×2 (08:46→17:22)
[2016-11-13] MEDS: FINASTERIDE 5 MG TAB PO SCH (08:46)
[2016-11-13] MEDS: SODIUM CHLORIDE 0.9% FLUSH 10 ML FLUSH IV FLUSH SCH ×2 (08:46→21:00)
[2016-11-13] MEDS: cloNIDine HCL 0.1 MG TAB PO SCH ×2 (08:46→22:26)
[2016-11-13] MEDS: DORZOLAMIDE 2% OPTH SOLN 200 DROP/10 ML BTLO EACH EYE SCH ×2 (08:47→22:28)
--- NOTE | 2016-11-13 14:45 | HHI.PR ---
Subjective Subjective Remarks some dizziness with activity Weak wants to eat, NPO for STT no sob no cp no palpitations no fever Review of Systems Constitutional Constitutional Remarks 12 point review of systems completed, negative except as noted above, unreliable Vitals/Results Intake & Output 11/12/16 11/12/16 11/13/16 15:00 23:00 07:00 Intake Total 600 ml 320 ml 320 ml Output Total 250 ml Balance 350 ml 320 ml 320 ml Intake Oral 600 ml 320 ml 320 ml Output Urine Total 250 ml # Voids 1 2 # Bowel Movements 0 0 0 Vital Signs Vital Signs Date Time Temp Pulse Resp B/P Pulse Ox O2 Delivery O2 Flow Rate FiO2 11/13/16 12:00 97.1 54 19 136/61 96 11/13/16 08:00 98.1 63 18 145/67 92 136/64 146/70 11/13/16 08:00 63 11/13/16 04:00 98.4 64 22 131/59 94 11/13/16 00:00 96.7 52 22 126/60 94 11/12/16 20:07 18 11/12/16 20:00 96.6 52 22 133/60 95 11/12/16 16:00 95.0 50 19 122/58 95 CBC/BMP: 11/12/16 0443 11/12/16 0443 Physical Exam General General Appearance: Well Developed, No Acute Distress Eyes Eye Exam: Pupils Equal, Pupils Reactive Ears & Nose Ears & Nose Exam: Nasal Mucosa [place] Throat Throat Exam: Oral Mucosa [place] & Moist Neck Neck Exam: Neck Supple, Trachea Midline Pulmonary Resp Exam: Decreased Bases Cardiology CV Exam: Regular, Good Perfusion Gastrointestinal/Abdomen GI Exam: Soft, Non-Tender, Bowel Sounds Present, Non-Distended Musculoskeletal MS Exam: Joints Intact Integumentary Skin Exam: Warm, Dry Extremeties Extremities Exam: No Edema, Pedal Pulses Palpable Neurologic Neuro Exam: Alert, Awake, Oriented, Speech Clear, Moving All Extremities, No Focal Deficits Psychiatric Psych Exam: Appropriate Responses VTE Prophylaxis VTE Prophylaxis Device: SCDs Assessment/Plan Problem List: (1) CHF (congestive heart failure) (2) Elevated troponin (3) Dizziness (4) S/P CABG x 2 (5) Stage 3 chronic kidney disease (6) CAD (coronary artery disease) (7) Hyperlipemia (8) Diabetes mellitus (9) BPH (benign prostatic hyperplasia) (10) Hypertension Assessment/Plan Acute CHF, with new findings of cardiomyopathy, likely systolic and diastolic Elevated trop Status post CABG 2 2016 Appreciate cardiology input Echocardiogram done, EF 30-35% Continue with Lasix 20 mg by mouth twice a day Continue with Cozaar -continue Coreg Discussed with Dr. Jesus, recommends LifeVest at this time. Patient may need insertion of possible AICD with pacemaker, Dr. Easley to return in 2 days and will likely be consulted Stress test has been ordered, we will follow up results Bradycardia with report of dizziness, HR 50s Orthostatics have been ordered per cardiology Put hold parameters on Coreg HTN, at time uncontrolled, better now -continue with present meds-Norvasc, amlodipine, Cozaar, hydralazine -Procardia stopped due to finding of cardiomyopathy Type 2 diabetes Accu-Cheks before meals and at bedtime with insulin therapy as needed Hyperlipidemia, stable Continue home medication Chronic kidney disease stage III, stable Continue to monitor renal function Avoid nephrotoxic agents Add Heparin for DVT prophylaxis BMP in am will f/u results of STT D/W RN D/W Dr. Euceda/Dr. Jesus D/W pt This patient was seen by myself and Dr. Euceda, this note is written on her behalf Problem Qualifiers (1) CHF (congestive heart failure): Qualified Code: I50.41 - Acute combined systolic and diastolic congestive heart failure (2) CAD (coronary artery disease): Qualified Code: I25.118 - Coronary artery disease involving [place] coronary artery of [place] heart with other form of angina pectoris (3) Hyperlipemia: Qualified Code: E78.5 - Hyperlipidemia, unspecified hyperlipidemia type (4) Diabetes mellitus: (5) BPH (benign prostatic hyperplasia): (6) Hypertension: Qualified Code: I10 - Essential hypertension Gaby Knight Nov 13, 2016 14:45
[2016-11-13] MEDS ORDERED: REGADENOSON INJ 0.4 MG/5 ML SYR ONE (15:05)
--- NOTE | 2016-11-13 16:58 | RADRPT ---
EXAM DATE/TIME: 11/13/2016 14:42 [facility] COMPARISON: MYOCARDIAL PERF PHARM SPECT, GATED W/EF, May 23, 2016, 9:46. INDICATIONS : Shortness of breath for two days. Coronary artery disease. Congestive heart failure. DOSE: 27.1 mCi Tc99m Myoview at stress. 8.7 mCi Tc99m Myoview at rest. 0.4 mg Lexiscan STRESS SYMPTOMS: Dizziness. EJECTION FRACTION: 52% MEDICAL HISTORY : Diabetes mellitus type 2. Hypertension. SURGICAL HISTORY : CABG Tonsillectomy. ENCOUNTER: Initial ACUITY: 2 days PAIN SCALE: 0/10 LOCATION: chest TECHNIQUE: The patient underwent pharmacologic stress with infusion of prescribed dose. Continuous ECG tracing was monitored during stress. Gated SPECT imaging was performed after stress and conventional SPECT i maging was performed at rest. The examination was performed on a SPECT/CT scanner, both attenuation and non-corrected datasets were reviewed. FINDINGS: DISTRIBUTION: The maximum perfused segment at stress is in the anterior wall. PERFUSION STUDY: There are small focal areas of decreased activity at the basilar inferior wall and inferior septum. T he decreased activity is in the order of 10-30%. GATED STUDY: There is intact wall motion and thickening without hypokinetic or dyskinetic segments. CONCLUSION: Suspected mild areas of ischemia at the inferior wall and inferior septum at the base. RISK CATEGORY: Low (<1% Annual Mortality Rate) Maxi Delgado MD on November 13, 2016 at 16:53 Board Certified Radiologist. This report was verified electronically.
[2016-11-13] MEDS: MORPHINE SULFATE 4 MG/ML INJ IV PRN (17:23)
[2016-11-13] MEDS: PRAVASTATIN SOD 80 MG TAB PO SCH (22:26)
[2016-11-13] MEDS: HEPARIN SODIUM - SQ 10,000 UNITS/ML VIAL SQ SCH (22:26)
[2016-11-14] VITALS: BP 144/65; PULSE 59; RESP 18; TEMP 97.7; O2SAT 95
[2016-11-14] MEDS: hydrALAZINE HCL 50 MG TAB PO SCH ×2 (03:50→09:18)
[2016-11-14 04:00] VITALS: BP 117/75; PULSE 58; RESP 20; TEMP 97.1; O2SAT 93
[2016-11-14] MEDS: INSULIN ASPART SUPPLEMENTAL SCALE SQ SCH (06:27)
--- NOTE | 2016-11-14 07:47 | PD.CARD.PN ---
Subjective Subjective Remarks pt without complaints Objective Medications Current Medications Medications (Trade) Dose Ordered Sig/Regina Route Start Time Stop Time Status Last Admin (Coreg) 3.125 mg Q12HR PO 11/11/16 21:00 11/13/16 22:26 (Plavix) 75 mg DAILY PO 11/12/16 09:00 11/13/16 08:45 (Trusopt 2% Opth Soln) 1 drop BID EACH EYE 11/11/16 21:00 11/13/16 22:28 (Proscar) 5 mg DAILY PO 11/12/16 09:00 11/13/16 08:46 (Cozaar) 100 mg DAILY PO 11/12/16 09:00 11/13/16 08:45 (Theragran) 1 tab DAILY PO 11/12/16 09:00 11/13/16 08:45 (KCl) 20 meq DAILY PO 11/12/16 09:00 11/13/16 08:45 (Pravachol) 80 mg HS PO 11/11/16 21:00 11/13/16 22:26 (Aspirin Chew) 81 mg DAILY PO 11/12/16 09:00 11/13/16 08:45 (NS Flush) 2 ml UNSCH PRN IV FLUSH 11/11/16 13:30 (NS Flush) 2 ml BID IV FLUSH 11/11/16 21:00 11/13/16 21:00 (Narcan Inj) 0.4 mg UNSCH PRN IV 11/11/16 13:30 (Leila-Colace) 1 tab BID PO 11/11/16 21:00 11/13/16 22:26 (Milk Of Magnesia Liq) 30 ml Q12H PRN PO 11/11/16 13:30 (Senokot) 17.2 mg Q12H PRN PO 11/11/16 13:30 (Dulcolax Supp) 10 mg DAILY PRN RECTAL 11/11/16 14:00 (Lactulose Liq) 30 ml DAILY PRN PO 11/11/16 13:30 (D50w (Vial) Inj) 50 ml UNSCH PRN IV 11/11/16 13:45 (Glucagon Inj) 1 mg UNSCH PRN OTHER 11/11/16 13:45 (Catapres) 0.1 mg Q6H PRN PO 11/11/16 15:00 (Catapres) 0.1 mg Q12HR PO 11/11/16 21:00 11/13/16 22:26 (Apresoline) 50 mg Q6H PO 11/12/16 09:00 11/14/16 03:50 (Lasix) 20 mg BID@09,18 PO 11/12/16 09:00 11/13/16 17:22 (Norvasc) 10 mg DAILY PO 11/12/16 10:00 11/13/16 08:45 (Morphine Inj) 2 mg Q4H PRN IV 11/12/16 18:00 11/13/16 17:23 (Heparin Inj) 5,000 units Q12HR SQ 11/13/16 21:00 11/13/16 22:26 Vital Signs / I&O Vital Signs Date Time Temp Pulse Resp B/P Pulse Ox O2 Delivery O2 Flow Rate FiO2 11/14/16 04:00 97.1 58 20 117/75 93 11/14/16 00:00 97.7 59 18 144/65 95 11/13/16 22:20 61 11/13/16 20:00 96.2 55 20 166/79 96 11/13/16 16:44 96.0 65 17 143/64 97 11/13/16 12:00 97.1 54 19 136/61 96 11/13/16 08:00 98.1 63 18 145/67 92 136/64 146/70 11/13/16 08:00 63 I/O 11/13/16 11/13/16 11/13/16 11/14/16 11/14/16 11/14/16 07:00 15:00 23:00 07:00 15:00 23:00 Intake Total 320 ml 0 ml 320 ml 320 ml Balance 320 ml 0 ml 320 ml 320 ml Intake Oral 320 ml 0 ml 320 ml 320 ml # Voids 2 2 2 3 # Bowel Movements 0 0 0 0 Physical Exam GENERAL: Well developed, well nourished. No acute distress. HEENT: Jugular venous pressure is normal. CHEST: Lungs clear to auscultation bilaterally. Unlabored respiratory effort. CARDIAC: Regular rate and rhythm without S3, S4, or murmur. ABDOMEN: Soft, nontender, no hepatosplenomegaly. Bowel sounds present. EXTREMITIES: No clubbing, cyanosis, or edema. Laboratory Laboratory Tests Test 11/13/16 20:13 Troponin I 0.08 NG/ML Imaging Last 72 hours Impressions Myocardial Perfusion Scan Nuc Med 11/13/16 0000 Signed Impressions: Service Date/Time: Sunday, November 13, 2016 14:42 - CONCLUSION: Suspected mild areas of ischemia at the inferior wall and inferior septum at the base. RISK CATEGORY: Low (<1%% Annual Mortality Rate) Maxi Delgado MD Abdomen X-Ray 11/12/16 0000 Signed Impressions: Service Date/Time: Saturday, November 12, 2016 21:40 - CONCLUSION: Benign-appearing abdomen. No perceptible renal or ureteral calculus. Maxi Fowler MD Chest X-Ray 11/11/16 1107 Signed Impressions: Service Date/Time: Friday, November 11, 2016 11:05 - CONCLUSION: Cardiomegaly with new hazy bilateral opacities concerning for pulmonary edema. Christoph Thomas MD Assessment and Plan Assessment and Plan Acute CHF- likely diastolic and systolic combined, EF 30-35% global HK on ECHO 52% on Nuc - continue diuretic and sodium restrict - doing well on present meds; CX and RCA have severe diffuse disease and were not revascularized Nuc was low risk ischemic cardiomyopathy- likely still 40% EF HTN- - good dizzy- resolved CAD- hx CABG May 2016 Weakness- resolved per pt Dispo- ok for d/c Niki Jesus MD Nov 14, 2016 07:47 Niki Jesus MD Nov 14, 2016 07:47
[2016-11-14 08:00] VITALS: BP 128/61; PULSE 53; RESP 16; TEMP 97.4; O2SAT 96
[2016-11-14 08:35] LABS: BICARBONATE 22.9 MEQ/L (21.0-32.0); POTASSIUM 3.8 MEQ/L (3.5-5.1)
[2016-11-14] MEDS ORDERED: POTASSIUM CHLORIDE 10 MEQ CAP PO SCH (09:00)
[2016-11-14] MEDS: cloNIDine HCL 0.1 MG TAB PO SCH (09:17)
[2016-11-14] MEDS: POTASSIUM CHLORIDE 20 MEQ CONTROLLED RELEASE TAB PO SCH (09:17)
[2016-11-14] MEDS: LOSARTAN 50 MG TAB PO SCH (09:17)
[2016-11-14] MEDS: CLOPIDOGREL 75 MG TAB PO SCH (09:17)
[2016-11-14] MEDS: FUROSEMIDE 20 MG TAB PO SCH (09:17)
[2016-11-14] MEDS: CARVEDILOL 3.125 MG TAB PO SCH (09:17)
[2016-11-14] MEDS: MULTIVITAMIN TAB PO SCH (09:17)
[2016-11-14] MEDS: FINASTERIDE 5 MG TAB PO SCH (09:17)
[2016-11-14] MEDS: ASPIRIN 81 MG CHEW TAB PO SCH (09:17)
[2016-11-14] MEDS: DOCUSATE SODIUM 50 MG/SENNA 8.6 MG TAB PO SCH (09:18)
[2016-11-14] MEDS: SODIUM CHLORIDE 0.9% FLUSH 10 ML FLUSH IV FLUSH SCH (09:18)
[2016-11-14] MEDS: HEPARIN SODIUM - SQ 10,000 UNITS/ML VIAL SQ SCH (09:18)
[2016-11-14] MEDS: DORZOLAMIDE 2% OPTH SOLN 200 DROP/10 ML BTLO EACH EYE SCH (09:19)
--- NOTE | 2016-11-14 10:19 | HHI.FF ---
Face to Face Verification Diagnosis: (1) Elevated troponin (2) Hypertension (3) Hyperlipemia (4) CHF (congestive heart failure) (5) CAD (coronary artery disease) (6) S/P CABG x 2 (7) Stage 3 chronic kidney disease (8) BPH (benign prostatic hyperplasia) Physical Therapy Order: Evaluate and Treat Home Health Nursing Order: Medical education Signs/symptoms of disease process CHF education Oxygen administration education Nursing assessment with vital signs Dog Control Officer Order: To Provide: Community services I have seen patient Zackary CastilloSr on 11/14/16. My clinical findings support the need for the requested home health care services because: Patient has SOB Deconditioned w/ increased weakness Limited ability to care for self Need for psychosocial assistance I certify that my clinical findings support that this patient is homebound because: Need for psychosocial assistance Poor cardiac reserve Gaby Knight [facility] Nov 14, 2016 10:19
--- NOTE | 2016-11-14 10:32 | HHI.PR ---
Subjective Subjective Remarks no dizziness no cp no sob, occ. with activity requesting oxygen no fever no acute changes overnight Review of Systems Constitutional Constitutional Remarks 12 point review of systems completed, negative except as noted above, unreliable Vitals/Results Intake & Output 11/13/16 11/13/16 11/14/16 15:00 23:00 07:00 Intake Total 0 ml 320 ml 320 ml Balance 0 ml 320 ml 320 ml Intake Oral 0 ml 320 ml 320 ml # Voids 2 2 3 # Bowel Movements 0 0 0 Vital Signs Vital Signs Date Time Temp Pulse Resp B/P Pulse Ox O2 Delivery O2 Flow Rate FiO2 11/14/16 08:00 97.4 53 16 128/61 96 11/14/16 04:00 97.1 58 20 117/75 93 11/14/16 00:00 97.7 59 18 144/65 95 11/13/16 22:20 61 11/13/16 20:00 96.2 55 20 166/79 96 11/13/16 16:44 96.0 65 17 143/64 97 11/13/16 12:00 97.1 54 19 136/61 96 CBC/BMP: 11/12/16 0443 11/14/16 0630 Lab Results Laboratory Tests Test 11/13/16 11/14/16 20:13 06:30 Troponin I 0.08 NG/ML Sodium Level 138 MEQ/L Potassium Level 3.8 MEQ/L Chloride Level 107 MEQ/L Carbon Dioxide Level 22.9 MEQ/L Anion Gap 8 MEQ/L Blood Urea Nitrogen 23 MG/DL Creatinine 1.87 MG/DL Estimat Glomerular Filtration 42 ML/MIN Rate Random Glucose 111 MG/DL Calcium Level 8.8 MG/DL Physical Exam General General Appearance: Well Developed, No Acute Distress Eyes Eye Exam: Pupils Equal, Pupils Reactive Ears & Nose Ears & Nose Exam: Nasal Mucosa [place] Throat Throat Exam: Oral Mucosa [place] & Moist Neck Neck Exam: Neck Supple, Trachea Midline Pulmonary Resp Exam: Decreased Bases Cardiology CV Exam: Regular, Good Perfusion Gastrointestinal/Abdomen GI Exam: Soft, Non-Tender, Bowel Sounds Present, Non-Distended Musculoskeletal MS Exam: Joints Intact Integumentary Skin Exam: Warm, Dry Extremeties Extremities Exam: No Edema, Pedal Pulses Palpable Neurologic Neuro Exam: Alert, Awake, Oriented, Speech Clear, Moving All Extremities, No Focal Deficits Psychiatric Psych Exam: Appropriate Responses VTE Prophylaxis VTE Prophylaxis Device: SCDs Assessment/Plan Problem List: (1) CHF (congestive heart failure) (2) Elevated troponin (3) Dizziness (4) S/P CABG x 2 (5) Stage 3 chronic kidney disease (6) CAD (coronary artery disease) (7) Hyperlipemia (8) Diabetes mellitus (9) BPH (benign prostatic hyperplasia) (10) Hypertension Assessment/Plan Acute CHF, with new findings of cardiomyopathy, 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 Low risk. Per cardiology, EF per stress test, more like 52%. Believes that EF is still probably 40%. Does not recommend life vest at this time. Bradycardia with report of dizziness, HR 50s Orthostatics negative Continue with Coreg, tolerating well, heart rate mid 50s to 60s. -Denies any dizziness today, no chest pain HTN, at time uncontrolled, better now -continue with present meds-Norvasc, amlodipine, Cozaar, hydralazine -Procardia stopped due to finding of cardiomyopathy Type 2 diabetes Accu-Cheks before meals and at bedtime with insulin therapy as needed Hyperlipidemia, stable Continue home medication Chronic kidney disease stage III, stable Continue to monitor renal function Avoid nephrotoxic agents Heparin for DVT prophylaxis Pt stable, no chest pain, shortness of breath improving. Diuresing well. CM consult for discharge planning, recommend home health care, patient agreeable. He is requesting oxygen, we will do walk test and if needed we'll order oxygen. Patient cleared for discharge by cardiology Discharged home today with [facility] F/U cardiology Diet-heart healthy Activity-as tolerated D/W RN D/W Dr. Euceda D/W pt D/W CM This patient was seen by myself and Dr. Euceda, this note is written on her behalf Discharge Minutes: 45 Problem Qualifiers (1) CHF (congestive heart failure): Qualified Code: I50.41 - Acute combined systolic and diastolic congestive heart failure (2) CAD (coronary artery disease): Qualified Code: I25.118 - Coronary artery disease involving [place] coronary artery of [place] heart with other form of angina pectoris (3) Hyperlipemia: Qualified Code: E78.5 - Hyperlipidemia, unspecified hyperlipidemia type (4) Diabetes mellitus: (5) BPH (benign prostatic hyperplasia): (6) Hypertension: Qualified Code: I10 - Essential hypertension Gaby Knight Nov 14, 2016 10:32
--- NOTE | 2016-11-14 10:36 | HHI.DCPOC ---
Discharge Care Plan Diagnosis: (1) Dizziness (2) Elevated troponin Your Health Problems Are: Chest Pain Shortness of Breath Goals to Promote Your Health * To prevent worsening of your condition and complications * To maintain your health at the optimal level Directions to Meet Your Goals Take your medications as prescribed Follow your dietary instruction Follow activity as directed Keep your appointments as scheduled Take your immunizations and boosters as scheduled If your symptoms worsen call your PCP, if no PCP go to Urgent Care Center or Emergency Room Smoking is Dangerous to Your Health. Avoid second hand smoke Call the 24-hour hour crisis hotline for domestic abuse at Gaby Knight. [facility] Nov 14, 2016 10:36
== END 2016-11-14 12:19 | disposition home health service (06) | DRG 291 ==
LOC: NEPC 10:56 → NEDA 13:30 → N07B 16:14
PROVIDERS: ADMIT Specialist; ATTEND Specialist
DX: I13.0 Hypertensive heart and chronic kidney disease with heart failure and stage 1 through stage 4 chronic kidney disease, or unspecified chronic kidney disease (principal); I50.41 Acute combined systolic (congestive) and diastolic (congestive) heart failure; N17.9 Acute kidney failure, unspecified; E11.22 Type 2 diabetes mellitus with diabetic chronic kidney disease; D64.9 Anemia, unspecified; I25.5 Ischemic cardiomyopathy; N40.0 Benign prostatic hyperplasia without lower urinary tract symptoms; R74.8 Abnormal levels of other serum enzymes; I25.10 Atherosclerotic heart disease of native coronary artery without angina pectoris; N18.3 Chronic kidney disease, stage 3 (moderate); I16.1 Hypertensive emergency; E78.5 Hyperlipidemia, unspecified; K21.9 Gastro-esophageal reflux disease without esophagitis; Z79.02 Long term (current) use of antithrombotics/antiplatelets; Z95.1 Presence of aortocoronary bypass graft; Z79.82 Long term (current) use of aspirin; Z87.891 Personal history of nicotine dependence
CPT/HCPCS: 71010; 74000; 78452; 80048; 80053; 82550; 82948; 83735; 83880; 84100; 84484; 85025; 85610; 85730; 93005; 93017; 93306; 94620; 96374; A9502; J1644; J1815; J1940; J2270; J2785